=== PATIENT | male | born 1970 ===

== ENCOUNTER 2018-07-07 22:39 | Inpatient (IN) | payer MEDICARE ==
[2018-07-07] MEDS ORDERED: Piperacillin/Tazobact 3.375 GM in Sodium Chloride 0.9% 100 ML IV STA (23:51)
[2018-07-07] MEDS ORDERED: Sodium Chloride 0.9% 1,000 ML IV STA (23:55)
[2018-07-08] MEDS ORDERED: Morphine 4 MG/ML VIAL IVP ONE (00:12)
[2018-07-08] MEDS ORDERED: Morphine 4 MG/ML VIAL ONE (00:14)
[2018-07-08] MEDS ORDERED: Piperacillin/Tazobact 3.375 gm Inj IVPB ONE (00:15)
--- NOTE | 2018-07-08 00:27 | ED PDOC ---
Lower Extremity Pain/Injury Time Seen by Provider: 07/07/18 23:23 Chief Complaint (Nursing): Lower Extremity Problem/Injury Chief Complaint (Provider): Lower Extremity Problem/Injury History Per: Patient History/Exam Limitations: no limitations Onset/Duration Of Symptoms: Days (2) Additional Complaint(s): 48 y/o male with history of diabetes, HTN, and stroke, presents to the ED complaining of left foot pain onset x2 days ago. Patient reports that x2 days ago he cut the bottom of his 4th toe on his left foot. He went to [facility] and was given Rx for Keflex. Patient reports that his foot is red and swollen. He became aware of fever upon arrival to ED. His last tetanus was within 5 years. Past Medical History Reviewed: Historical Data, Nursing Documentation, Vital Signs Vital Signs: Last Vital Signs Temp 101.4 F H 07/07/18 22:45 Pulse 135 H 07/07/18 22:45 Resp 16 07/07/18 22:45 BP 107/76 07/07/18 22:45 Pulse Ox 100 07/07/18 22:45 - Medical History PMH: CVA (stroke), Diabetes, HTN, Hypercholesterolemia - Family History Family History: States: Unknown Family Hx - Immunization History Hx Tetanus Toxoid Vaccination: No Hx Influenza Vaccination: No Hx Pneumococcal Vaccination: No - Home Medications Home Medications: Ambulatory Orders Medication Instructions Recorded RX: Insulin Aspart, Recombinant 15 unit SQ TID 08/12/16 [Novolog] RX: Lisinopril [Zestril] 40 mg PO DAILY 08/12/16 RX: amLODIPine [Norvasc] 10 mg PO DAILY 08/12/16 RX: metFORMIN [glucOPHAGE] 500 mg PO DAILY 08/12/16 Cephalexin [cephalexin] 500 mg PO TID 30 Days cap 07/05/18 Insulin Glargine,Hum.rec.anlog 50 unit SQ HS 07/05/18 [Lantus] Sulfamethoxazole/Trimethoprim 1 tab PO BID 20 Days tablet 07/05/18 [Bactrim Ds Tablet] Aspirin [Adult Low Dose Aspirin EC] 81 mg PO DAILY 07/08/18 Atorvastatin [Lipitor] 20 mg PO DAILY 07/08/18 Multivitamin,Therapeutic [Oncovite] 1 tab PO DAILY 07/08/18 [id number] Ethyl Esters 1 GM 1 tab PO DAILY 07/08/18 [Lovaza] RX: Glimepiride [amaRYL] 4 mg PO DAILY 07/08/18 RX: Pioglitazone [Actos] 15 mg PO DAILY 07/08/18 - Allergies Allergies/Adverse Reactions: Allergies Allergy/AdvReac Type Severity Reaction Status Date / Time No Known Allergies Allergy Verified 07/05/18 09:56 Review of Systems ROS Statement: Except As Marked, All Systems Reviewed And Found Negative Constitutional: Positive for: Fever, Chills Musculoskeletal: Positive for: Foot Pain Physical Exam - Reviewed Nursing Documentation Reviewed: Yes Vital Signs Reviewed: Yes - Physical Exam Appears: Positive for: Well, Non-toxic, No Acute Distress Head Exam: Positive for: ATRAUMATIC, NORMAL INSPECTION, NORMOCEPHALIC Skin: Positive for: Normal Color, Warm, DRY Eye Exam: Positive for: EOMI, Normal appearance, PERRL ENT: Positive for: Normal ENT Inspection Neck: Positive for: Normal, Painless ROM Cardiovascular/Chest: Positive for: Regular Rate, Rhythm. Negative for: Murmur Respiratory: Positive for: Normal Breath Sounds. Negative for: Respiratory Distress Pulses-Dorsalis Pedis (L): 2+ Pulses-Dorsalis Pedis (R): 2+ Pulses-Post. Tibialis (L): 2+ Pulses-Post. Tibialis (R): 2+ Extremity: Positive for: Capillary Refill (<2 second), Swelling, Other (Left 4th toe is indurated, erythematous, warm to touch with 1.5 cm laceration at plantar aspect; yellowish drainage; skin in web space of 4th digit is macerated) Neurologic/Psych: Positive for: Alert, Oriented. Negative for: Motor/Sensory Deficits - Laboratory Results Result Diagrams: 07/08/18 00:02 07/08/18 00:02 - ECG O2 Sat by Pulse Oximetry: 100 (RA) Pulse Ox Interpretation: Normal Medical Decision Making Medical Decision Making: Time: 23:51 Initial Impression: 48 y/o with left 4th toe wound infection in setting of diabetes and cellulitis Initial Plan: * Labs * RAD Foot * Podiatry consult 23:54 Spoke with Deneen Das, podiatry resident, regarding patient case. She will come examine patient's foot. 00:49 Patient labs are significant for leukocytosis, elevated BUN and creatinine which is indicative of worsening kidney function. Patient is admitted for 4th toe wound infection and cellulitis and failed out patient treatment. Case referred to Dr. Funk. Scribe Attestation: Documented by Hadley Pierce acting as a scribe for Marcos Sanchez MD. Provider Scribe Attestation: All medical record entries made by the Scribe were at my direction and personally dictated by me. I have reviewed the chart and agree that the record accurately reflects my personal performance of the history, physical exam, medical decision making, and the department course for this patient. I have also personally directed, reviewed, and agree with the discharge instructions and disposition. Disposition - Clinical Impression Clinical Impression: Cellulitis of left foot - Patient ED Disposition Is Patient to be Admitted: Yes Discussed With : Ashish Funk - Disposition Disposition Time: 00:49 Condition: FAIR - Pt Status Changed To: Hospital Disposition Of: Inpatient - Admit Certification Admit to Inpatient:: After my assessment, the patient will require hospitalization for at least two midnights. This is because of the severity of symptoms shown, intensity of services needed, and/or the medical risk in this patient being treated as an outpatient.
[2018-07-08 00:31] LABS: BASO # 0.1 K/uL (0.0-0.2); BASO % 0.5 % (0.0-2.0); EOS # 0.8 K/uL (0.0-0.7); EOS % 5.9 % (0.0-4.0); HEMOGLOBIN 12.5 g/dL (12.0-18.0); LYMPH % 7.4 % (20.0-40.0); MEAN CELL VOLUME 94.9 fl (80.0-94.0); MEAN CORPUSCULAR HEMOGLOBIN 31.9 pg (27.0-31.0); MEAN CORPUSCULAR HGB CONC 33.6 g/dL (33.0-37.0); MEAN PLATELET VOLUME 8.6 fl (7.2-11.7); MONO # 1.5 K/uL (0.0-0.8); NEUT # 10.1 K/uL (1.8-7.0); NEUT % 75.2 % (50.0-75.0); NRBC % 0.1 % (0.0-0.0); PLATELET COUNT 275 K/uL (130-400); RBC 3.92 Mil/uL (4.40-5.90); RED CELL DISTRIBUTION WIDTH 12.8 % (11.5-14.5); WHITE BLOOD COUNT 13.4 K/uL (4.8-10.8)
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
[2018-07-08 00:43] LABS: ALB/GLOB RATIO 1.1 (1.0-2.1); ALBUMIN 3.9 g/dL (3.5-5.0); CALCIUM 9.3 mg/dL (8.4-10.2)
[2018-07-08] MEDS ORDERED: Sodium Chloride 0.9% 1,000 ML IV STA (01:26)
[2018-07-08] MEDS ORDERED: Glucagon Recombinant 1 mg Inj IM PRN (01:39)
[2018-07-08] MEDS ORDERED: Dextrose 50% SYRINGE Inj (50 ml) IV PRN (01:39)
[2018-07-08] MEDS ORDERED: Insulin Regular 100 units/ml IV ONE (02:10)
[2018-07-08 02:22] LABS: BANDS 1 % (0-2); BASOPHIL 1 % (0-2); LYMPHOCYTE 8 % (20-50); MONOCYTE 7 % (0-10); NEUTROPHIL 83 % (42-75); PLATELET ESTIMATE NORMAL (NORMAL); TOTAL CELLS COUNTED 100
[2018-07-08 02:24] LABS: ANISOCYTOSIS SLIGHT
[2018-07-08 02:25] LABS: SPHEROCYTES SLIGHT
[2018-07-08] MEDS ORDERED: Morphine 4 MG/ML VIAL IVP STA (03:37)
[2018-07-08] MEDS: GlipiZIDE 10 mg SR Tab PO SCH (08:52)
[2018-07-08] MEDS: Omega-3-Acid Ethyl Esters 1 GM Cap PO SCH (08:53)
[2018-07-08] MEDS: Multivitamin With Minerals Tab PO SCH (08:54)
[2018-07-08] MEDS: Mupirocin 2% Oint 1GM UD TOP SCH ×2 (08:55→16:24)
[2018-07-08] MEDS: Morphine 4 MG/ML VIAL IVP PRN ×2 (09:06→17:53)
[2018-07-08] MEDS: Insulin Regular 100 units/ml SC SCH ×4 (09:07→21:33)
[2018-07-08] MEDS: Clindamycin in D5W 300 MG/50 ML BAG IV SCH ×3 (09:47→22:43)
[2018-07-08 10:34] LABS: BASO # 0.1 K/uL (0.0-0.2); BASO % 0.4 % (0.0-2.0); EOS # 0.6 K/uL (0.0-0.7); EOS % 4.3 % (0.0-4.0); HEMOGLOBIN 12.5 g/dL (12.0-18.0); LYMPH # 1.3 K/uL (1.0-4.3); LYMPH % 8.7 % (20.0-40.0); MEAN CELL VOLUME 94.2 fl (80.0-94.0); MEAN CORPUSCULAR HEMOGLOBIN 31.6 pg (27.0-31.0); MEAN CORPUSCULAR HGB CONC 33.6 g/dL (33.0-37.0); MEAN PLATELET VOLUME 8.3 fl (7.2-11.7); MONO # 1.7 K/uL (0.0-0.8); MONO % 11.8 % (0.0-10.0); NEUT % 74.8 % (50.0-75.0); RBC 3.95 Mil/uL (4.40-5.90); RED CELL DISTRIBUTION WIDTH 12.8 % (11.5-14.5); WHITE BLOOD COUNT 14.7 K/uL (4.8-10.8)
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
[2018-07-08 11:33] LABS: CALCIUM 9.2 mg/dL (8.4-10.2)
[2018-07-08] MEDS: Oxycodone/Acetaminophen 5/325 mg Tab PO PRN ×2 (12:12→20:26)
--- NOTE | 2018-07-08 12:52 | RAD ---
Date of service: 07/08/2018 PROCEDURE: CHEST RADIOGRAPH, 1 VIEW HISTORY: admit COMPARISON: None available. FINDINGS: LUNGS: The lungs are well inflated and clear. PLEURA: No pneumothorax or pleural effusion. CARDIOVASCULAR: The heart is normal in size. Status post median sternotomy. No aortic atherosclerotic calcifications present. OSSEOUS STRUCTURES: Within normal limits for the patient's age. VISUALIZED UPPER ABDOMEN: Normal. OTHER FINDINGS: A right ventriculoperitoneal shunt overlies the lower neck, chest and abdomen. IMPRESSION: No acute findings.
--- NOTE | 2018-07-08 12:54 | RAD ---
Date of service: 07/08/2018 PROCEDURE: Left Foot Radiographs. HISTORY: pain COMPARISON: None. FINDINGS: BONES: Bone alignment and mineralization are normal. There is no acute displaced fracture or bone destruction. There is periosteal reaction in the lateral cortex of the 5th metatarsal.. There is a small plantar calcaneal spur and prominent dorsal calcaneal enthesophyte. JOINTS: There is mild degenerative osteoarthrosis in the 1st MTP joint and mild hallux deformity. SOFT TISSUES: Mild soft tissue swelling in the forefoot. OTHER FINDINGS: None. IMPRESSION: No acute fracture or dislocation. Periosteal reaction in the lateral cortex of the 5th metatarsal could represent post-traumatic or postinfectious changes. Follow-up is advised. Mild soft tissue swelling in the dorsal forefoot. The final report is tagged to the PA review folder.
--- NOTE | 2018-07-08 16:30 | US ---
Date of service: 07/08/2018 PROCEDURE: Duplex ultrasound of the bilateral lower extremity arteries. HISTORY: R/o PVD COMPARISON: None available. TECHNIQUE: Grayscale and duplex Doppler evaluation of the bilateral common femoral, superficial femoral, popliteal, posterior tibial and dorsalis pedis arteries was performed.. FINDINGS: RIGHT LOWER EXTREMITY: RIGHT COMMON FEMORAL ARTERY: Widely patent. Maximal flow velocity of 99.3 cm/s. RIGHT SUPERFICIAL FEMORAL ARTERY: Widely patent. Maximal flow velocity of 101.8 cm/s. RIGHT POPLITEAL ARTERY:Widely patent. Maximal flow velocity of 42.6 cm/s. RIGHT POSTERIOR TIBIAL ARTERY: Widely patent. Maximal flow velocity of 34.1 cm/s. RIGHT DORSALIS PEDIS ARTERY: Widely patent. Maximal flow velocity of 40.0 cm/s. LEFT LOWER EXTREMITY: LEFT COMMON FEMORAL ARTERY: Widely patent. Maximal flow velocity of 97.1 cm/s. LEFT SUPERFICIAL FEMORAL ARTERY: Widely patent. Maximal flow velocity of 90.4 cm/s. LEFT POPLITEAL ARTERY:Widely patent. Maximal flow velocity of 47.9 cm/s. LEFT POSTERIOR TIBIAL ARTERY: Widely patent. Maximal flow velocity of 46.0 cm/s. LEFT DORSALIS PEDIS ARTERY: Widely patent. Maximal flow velocity of 36.6 cm/s. OTHER FINDINGS: None. IMPRESSION: Normal Duplex Doppler of the bilateral lower extremity arteries.
[2018-07-08 19:38] LABS: URINE BILIRUBIN NEGATIVE (NEGATIVE); URINE BLOOD NEGATIVE (NEGATIVE); URINE CLARITY SLIGHTY-CLOUDY (Clear); URINE COLOR YELLOW (YELLOW); URINE GLUCOSE (UA) NEG (NEGATIVE); URINE LEUKOCYTE ESTERASE NEG Leu/uL (Negative); URINE PROTEIN 100 mg/dL (NEGATIVE)
[2018-07-08] MEDS: Linezolid 600 mg in D5W 300 ml 600 MG/300 ML BAG IVPB SCH (20:28)
[2018-07-08] MEDS: Insulin Detemir 100 Units/ml Inj SC SCH (21:32)
--- NOTE | 2018-07-09 01:09 | CP.PCM.HP ---
History of Present Illness - History of Present Illness History of Present Illness: CC: Left Foot Ulcer and Fever History fo Present Illness: A 48yoM patient with Hx of CVA, [employer] Shunt after the stroke, DM II, Dyslipidemia, HTN & CAD S/P CABG seen and evaluated at bedside for L foot Infected Ulcer. States that he was reversing in his car while wearing slippers and his foot slipped on the gas pedal causing a small laceration to the bottom of his foot beneath his 4th toe. Patient states that he went to [facility] where he was discharged on PO antibiotics. Also C./o worsening wound associated with foul- smelling discharge. Also associated with high-grade fever 102. He states that the past two days his daughter has been putting neosporin on the area which have caused it to become more wet. He states that he came to the ED today for his toe again since it was not getting better. He denies nausea/vomiting/shortness of breath/chest pain. He is admitted for worsening infected Diabetic foot Ulcer with failed outpatient treatment. Present on Admission - Present on Admission Any Indicators Present on Admission: Yes History of Uncontrolled Diabetes: Yes Review of Systems - Review of Systems All systems: reviewed and no additional remarkable complaints except Review of Systems: as per HPI Past Patient History - Past Medical History & Family History Past Medical History?: Yes Past Family History: Reviewed and not pertinent - Past Social History Smoking Status: Never Smoked Alcohol: None Drugs: Denies - CARDIAC Hx Hypercholesterolemia: Yes Hx Hypertension: Yes - PULMONARY Hx Respiratory Disorders: Yes Other/Comment: past lung surgery - NEUROLOGICAL Hx Neurological Disorder: Yes HX Cerebrovascular Accident: Yes Other/Comment: craniotomy in 2009 - HEENT Hx HEENT Problems: No - RENAL Hx Chronic Kidney Disease: No - ENDOCRINE/METABOLIC Hx Diabetes Mellitus Type 2: Yes - HEMATOLOGICAL/ONCOLOGICAL Hx Blood Disorders: No - INTEGUMENTARY Hx Dermatological Problems: No - MUSCULOSKELETAL/RHEUMATOLOGICAL Hx Falls: No - GASTROINTESTINAL Hx Gastrointestinal Disorders: No - GENITOURINARY/GYNECOLOGICAL Hx Genitourinary Disorders: No - PSYCHIATRIC Hx Substance Use: No - SURGICAL HISTORY Hx Surgeries: Yes Other/Comment: cardiac surgery. cerebral shunt. lung surgery - ANESTHESIA Hx Anesthesia: Yes Hx Anesthesia Reactions: No Meds Allergies/Adverse Reactions: Allergies Allergy/AdvReac Type Severity Reaction Status Date / Time No Known Allergies Allergy Verified 07/05/18 09:56 Physical Exam - Constitutional Appears: No Acute Distress, Chronically Ill - Head Exam Head Exam: ATRAUMATIC, NORMAL INSPECTION, NORMOCEPHALIC - Eye Exam Eye Exam: EOMI, Normal appearance, PERRL Pupil Exam: NORMAL ACCOMODATION, PERRL - ENT Exam ENT Exam: Mucous Membranes Moist, Normal Exam - Neck Exam Neck exam: Positive for: Normal Inspection - Respiratory Exam Respiratory Exam: Clear to Auscultation Bilateral, NORMAL BREATHING PATTERN - Cardiovascular Exam Cardiovascular Exam: REGULAR RHYTHM, +S1, +S2 - GI/Abdominal Exam GI & Abdominal Exam: Normal Bowel Sounds, Soft. absent: Tenderness - Extremities Exam Additional comments: LLE: Derm: Laceration appreciated to plantar sulcus of 4th digit, interdigital maceration appreciated to 3rd and 4th interspaces, ecchymosis appreciated to 4th digit, +purulence, Malodorous, no probe to bone with clinical signs of infection at this time. Gross sensaton intact, protective sensation diminished - Back Exam Back exam: NORMAL INSPECTION - Neurological Exam Neurological exam: Alert, CN II-XII Intact, Normal Gait, Oriented x3, Reflexes Normal - Psychiatric Exam Psychiatric exam: Normal Affect, Normal Mood - Skin Skin Exam: Dry, Intact, Warm Results - Vital Signs Recent Vital Signs: Last Vital Signs Temp 98.3 F 07/09/18 00:14 Pulse 101 H 07/09/18 00:14 Resp 18 07/09/18 00:14 BP 127/81 07/09/18 00:14 Pulse Ox 93 L 07/09/18 00:14 - Labs Result Diagrams: 07/12/18 09:07 07/12/18 09:07 Labs: Laboratory Results - last 24 hr 07/08/18 07/08/18 07/08/18 00:02 02:00 02:53 WBC RBC Hgb Hct MCV MCH MCHC RDW Plt Count MPV Neut % (Auto) Lymph % (Auto) [place] % (Auto) Eos % (Auto) Baso % (Auto) Neut # (Auto) Lymph # (Auto) [place] # (Auto) Eos # (Auto) Baso # (Auto) Neutrophils % (Manual) 83 H Band Neutrophils % 1 Lymphocytes % (Manual) 8 L Monocytes % (Manual) 7 Basophils % (Manual) 1 Platelet Estimate Normal Anisocytosis (manual) Slight Spherocytes Slight ESR Sodium Potassium Chloride Carbon Dioxide Anion Gap BUN Creatinine Est GFR ( Amer) Est GFR (Non-Af Amer) POC Glucose (mg/dL) 317 H 279 H Random Glucose Hemoglobin A1c Calcium Vitamin B12 TSH 3rd Generation Urine Color Urine Clarity Urine pH Ur Specific [place] Urine Protein Urine Glucose (UA) Urine Ketones Urine Blood Urine Nitrate Urine Bilirubin Urine Urobilinogen Ur Leukocyte Esterase Urine RBC (Auto) Urine Microscopic WBC 07/08/18 07/08/18 07/08/18 05:16 10:00 10:00 WBC 14.7 H RBC 3.95 L Hgb 12.5 Hct 37.2 MCV 94.2 H MCH 31.6 H MCHC 33.6 RDW 12.8 Plt Count 297 MPV 8.3 Neut % (Auto) 74.8 Lymph % (Auto) 8.7 L [place] % (Auto) 11.8 H Eos % (Auto) 4.3 H Baso % (Auto) 0.4 Neut # (Auto) 11.0 H Lymph # (Auto) 1.3 [place] # (Auto) 1.7 H Eos # (Auto) 0.6 Baso # (Auto) 0.1 Neutrophils % (Manual) Band Neutrophils % Lymphocytes % (Manual) Monocytes % (Manual) Basophils % (Manual) Platelet Estimate Anisocytosis (manual) Spherocytes ESR Sodium 135 Potassium 5.1 H Chloride 95 L Carbon Dioxide 25 Anion Gap 20 BUN 34 H Creatinine 3.0 H Est GFR ( Amer) 27 Est GFR (Non-Af Amer) 22 POC Glucose (mg/dL) 260 H Random Glucose 252 H Hemoglobin A1c Calcium 9.2 Vitamin B12 599 TSH 3rd Generation 1.37 Urine Color Urine Clarity Urine pH Ur Specific [place] Urine Protein Urine Glucose (UA) Urine Ketones Urine Blood Urine Nitrate Urine Bilirubin Urine Urobilinogen Ur Leukocyte Esterase Urine RBC (Auto) Urine Microscopic WBC 07/08/18 07/08/18 07/08/18 10:00 11:04 15:41 WBC RBC Hgb Hct MCV MCH MCHC RDW Plt Count MPV Neut % (Auto) Lymph % (Auto) [place] % (Auto) Eos % (Auto) Baso % (Auto) Neut # (Auto) Lymph # (Auto) [place] # (Auto) Eos # (Auto) Baso # (Auto) Neutrophils % (Manual) Band Neutrophils % Lymphocytes % (Manual) Monocytes % (Manual) Basophils % (Manual) Platelet Estimate Anisocytosis (manual) Spherocytes ESR Sodium Potassium Chloride Carbon Dioxide Anion Gap BUN Creatinine Est GFR ( Amer) Est GFR (Non-Af Amer) POC Glucose (mg/dL) 261 H 208 H Random Glucose Hemoglobin A1c 10.0 H Calcium Vitamin B12 TSH 3rd Generation Urine Color Urine Clarity Urine pH Ur Specific [place] Urine Protein Urine Glucose (UA) Urine Ketones Urine Blood Urine Nitrate Urine Bilirubin Urine Urobilinogen Ur Leukocyte Esterase Urine RBC (Auto) Urine Microscopic WBC 07/08/18 07/08/18 07/08/18 16:32 19:16 21:03 WBC RBC Hgb Hct MCV MCH MCHC RDW Plt Count MPV Neut % (Auto) Lymph % (Auto) [place] % (Auto) Eos % (Auto) Baso % (Auto) Neut # (Auto) Lymph # (Auto) [place] # (Auto) Eos # (Auto) Baso # (Auto) Neutrophils % (Manual) Band Neutrophils % Lymphocytes % (Manual) Monocytes % (Manual) Basophils % (Manual) Platelet Estimate Anisocytosis (manual) Spherocytes ESR 91 H Sodium Potassium Chloride Carbon Dioxide Anion Gap BUN Creatinine Est GFR ( Amer) Est GFR (Non-Af Amer) POC Glucose (mg/dL) 225 H Random Glucose Hemoglobin A1c Calcium Vitamin B12 TSH 3rd Generation Urine Color Yellow Urine Clarity Slighty-cloudy Urine pH 5.0 Ur Specific [place] 1.023 Urine Protein 100 Urine Glucose (UA) Neg Urine Ketones Negative Urine Blood Negative Urine Nitrate Negative Urine Bilirubin Negative Urine Urobilinogen 1.0 Ur Leukocyte Esterase Neg Urine RBC (Auto) 2 Urine Microscopic WBC 2 - Imaging and Cardiology Foot Status: Report reviewed by me Additional comment: Date of service: 07/08/2018 PROCEDURE: Left Foot Radiographs. HISTORY: pain COMPARISON: None. FINDINGS: BONES: Bone alignment and mineralization are normal. There is no acute displaced fracture or bone destruction. There is periosteal reaction in the lateral cor janny of the 5th metatarsal.. There is a small plantar calcaneal spur and prominent dorsal calcaneal enthesophyte. JOINTS: There is mild degenerative osteoarthrosis in the 1st MTP joint and mild hallux deformity. SOFT TISSUES: Mild soft tissue swelling in the forefoot. OTHER FINDINGS: None. IMPRESSION: No acute fracture or dislocation. Periosteal reaction in the lateral cortex of the 5th metatarsal could represent post-traumatic or postinfectious changes. Follow-up is advised. Mild soft tissue swelling in the dorsal forefoot. Chest x-ray Status: Report reviewed by me Additional comment: No Acute finding. Assessment & Plan (1) Sepsis Status: Acute Priority: High (2) Foot ulcer, left Assessment and Plan: Infected R/O Osteomyelitis Status: Acute Priority: High (3) Diabetes mellitus with hyperglycemia Status: Acute Priority: Medium (4) CAD (coronary artery disease) Status: Acute Priority: Medium (5) H/O coronary artery bypass surgery Status: Acute Priority: Low - Assessment and Plan (Free Text) Plan: IV fluid IV Vancomycin 1g every 24 hours Zosyn adjusted to renal function daily wound care MRI to rule out osteomyelitis ID consult Accu-Chek with coverage Hemoglobin A1C Arterial Doppler B/L LE Avoid Nephrotoxic Medications
[2018-07-09] MEDS: Clindamycin in D5W 300 MG/50 ML BAG IV SCH ×2 (06:27→14:00)
[2018-07-09 06:36] LABS: BASO # 0.1 K/uL (0.0-0.2); BASO % 0.6 % (0.0-2.0); EOS # 0.5 K/uL (0.0-0.7); EOS % 3.6 % (0.0-4.0); HEMOGLOBIN 11.3 g/dL (12.0-18.0); LYMPH # 1.2 K/uL (1.0-4.3); LYMPH % 9.3 % (20.0-40.0); MEAN CELL VOLUME 94.2 fl (80.0-94.0); MEAN CORPUSCULAR HEMOGLOBIN 31.9 pg (27.0-31.0); MEAN CORPUSCULAR HGB CONC 33.8 g/dL (33.0-37.0); MEAN PLATELET VOLUME 8.4 fl (7.2-11.7); MONO # 1.9 K/uL (0.0-0.8); MONO % 14.5 % (0.0-10.0); NEUT # 9.5 K/uL (1.8-7.0); RBC 3.56 Mil/uL (4.40-5.90); RED CELL DISTRIBUTION WIDTH 12.6 % (11.5-14.5); WHITE BLOOD COUNT 13.2 K/uL (4.8-10.8)
[2018-07-09] MEDS: Omega-3-Acid Ethyl Esters 1 GM Cap PO SCH (08:19)
[2018-07-09] MEDS: Insulin Regular 100 units/ml SC SCH (08:23)
[2018-07-09] MEDS: Mupirocin 2% Oint 1GM UD TOP SCH ×2 (08:24→17:18)
[2018-07-09] MEDS: Multivitamin With Minerals Tab PO SCH (08:25)
[2018-07-09] MEDS: GlipiZIDE 10 mg SR Tab PO SCH (08:26)
[2018-07-09] MEDS: Linezolid 600 mg in D5W 300 ml 600 MG/300 ML BAG IVPB SCH (08:28)
[2018-07-09] MEDS: Oxycodone/Acetaminophen 5/325 mg Tab PO PRN (08:34)
--- NOTE | 2018-07-09 08:45 | CP.PCM.PN ---
Subjective - Date & Time of Evaluation Date of Evaluation: 07/09/18 Time of Evaluation: 08:44 - Subjective Subjective: Podiatry Consult Note: Dr Deleon 48M patient, with PMHx of DM, HTN, seen and evaluated at bedside for L foot lesion. Patient is AAOx3 and in NAD. Denies acute overnight events. Admits to moderate pain to the left fourth and fifth toe. Patient states the pain medications are not alleviating the pain. Patient admits to burning sensation while urinating. He denies nausea/vomiting/fever/shortness of breath/chest pain/chills. Objective - Vital Signs/Intake and Output Vital Signs (last 24 hours): Temp Pulse Resp BP Pulse Ox 101.9 F H 109 H 20 132/63 94 L 07/09/18 08:22 07/09/18 08:19 07/09/18 08:19 07/09/18 08:19 07/09/18 08:19 - Medications Medications: Current Medications Acetaminophen (Tylenol 325mg Tab) 650 mg PO Q4 PRN PRN Reason: Fever >101.0 F Last Admin: 07/09/18 08:22 Dose: 650 mg Amlodipine Besylate (Norvasc) 10 mg PO DAILY [facility] Last Admin: 07/09/18 08:25 Dose: 10 mg Aspirin (Ecotrin) 81 mg PO DAILY [facility] Last Admin: 07/09/18 08:20 Dose: 81 mg Atorvastatin Calcium (Lipitor) 20 mg PO DAILY [facility] Last Admin: 07/09/18 08:26 Dose: 20 mg Dextrose (Dextrose 50% Inj) 0 ml IV STAT PRN; Protocol PRN Reason: Hypoglycemia Protocol Dextrose (Glutose 15) 0 gm PO ONCE PRN; Protocol PRN Reason: Hypoglycemia Protocol Glipizide (Glucotrol Xl) 10 mg PO DAILY [facility] Last Admin: 07/09/18 08:26 Dose: 10 mg Glucagon (Glucagen Diagnostic Kit) 0 mg IM STAT PRN; Protocol PRN Reason: Hypoglycemia Protocol Heparin Sodium (Porcine) (Heparin) 5,000 units SC Q8 [facility]; Protocol Last Admin: 07/09/18 08:19 Dose: 5,000 units Piperacillin Sod/Tazobactam (Sod 2.25 gm/ Sodium Chloride) 100 mls @ 100 mls/hr IV Q6H [facility]; Protocol Last Admin: 07/09/18 05:30 Dose: 100 mls/hr Clindamycin Phosphate (Clindamycin 300 Mg/50 Ml-D5w) 300 mg in 50 mls @ 100 mls/hr IV Q8H [facility]; Protocol Last Admin: 07/09/18 06:27 Dose: 100 mls/hr Linezolid (Zyvox 600mg/300ml D5w) 600 mg in 300 mls @ 300 mls/hr IVPB Q12 [facility]; Protocol Last Admin: 07/09/18 08:28 Dose: 300 mls/hr Insulin Detemir (Levemir) 50 units SC HS [facility] Last Admin: 07/08/18 21:32 Dose: 50 u Insulin Human Regular (Humulin R) 0 units SC ACHS [facility]; Protocol Last Admin: 07/09/18 08:23 Dose: 2 units Lisinopril (Zestril) 40 mg PO DAILY [facility] Last Admin: 07/09/18 08:25 Dose: 40 mg Morphine Sulfate (Morphine) 2 mg IVP Q4 PRN PRN Reason: Pain, severe (8-10) Last Admin: 07/08/18 17:53 Dose: 2 mg Multivitamins/Minerals (Therapeutic-M Tab) 1 tab PO DAILY [facility] Last Admin: 07/09/18 08:25 Dose: 1 tab Mupirocin (Bactroban Ointment) 1 applic TOP BID [facility] Last Admin: 07/09/18 08:24 Dose: 1 applic [id number] Ethyl Esters (Lovaza) 1 gm PO DAILY [facility] Last Admin: 07/09/18 08:19 Dose: 1 gm Oxycodone/Acetaminophen (Percocet 5/325 Mg Tab) 1 tab PO Q6 PRN PRN Reason: Pain, moderate (4-7) Stop: 07/11/18 06:53 Last Admin: 07/09/18 08:34 Dose: 1 tab Pioglitazone HCl (Actos) 15 mg PO DAILY [facility] Last Admin: 07/09/18 08:20 Dose: 15 mg Zolpidem Tartrate (Ambien) 5 mg PO HS PRN PRN Reason: Sleep Last Admin: 07/08/18 21:30 Dose: 5 mg - Labs Labs: 07/09/18 06:10 07/08/18 10:00 - Constitutional Appears: Well, Non-toxic, No Acute Distress - Head Exam Head Exam: ATRAUMATIC - Eye Exam Eye Exam: Normal appearance Pupil Exam: NORMAL ACCOMODATION - Extremities Exam Additional comments: LLE focused exam: Vascular: DP/PT 1/4, CFT < 3 seconds, TG warm to warm, no increased warmth appreciated to L 4th toe, mild +1 edema to 4th digit circumfrentially Ortho: Mild tenderness to palpation of plantar sulcus, HAV correction appreciated, left digit partial amputation Neuro: Gross sensaton intact, protective sensation diminished Derm: Laceration appreciated to plantar sulcus of 4th digit, interdigital maceration appreciated to 3rd and 4th interspaces, ecchymosis appreciated to 4th digit, no purulence, no probe to bone, no drainage, no malodor, no clinical signs of infection at this time. Assessment and Plan - Assessment and Plan (Free Text) Assessment: 48M patient, with PMHx of DM, HTN, seen and evaluated at bedside for L foot laceration Plan: Patient seen and evaluated Discussed patient in detail with Dr. Deleon Febrile, WBC 13.2 L foot x-rays ordered; no evidence of OM, no soft tissue emphysema appreciated C/w IV abx; Zosyn ID on board; appreciate recs Wound Cx from [facility] (taken 07/05); B hemolytic strep, Staph Aureus Local wound care; wound cleansed with saline and dressed with betadine, DSD Will continue to follow
[2018-07-09] MEDS: Morphine 4 MG/ML VIAL IVP PRN ×3 (09:33→21:27)
--- NOTE | 2018-07-09 11:12 | CP.PCM.PN ---
Subjective - Date & Time of Evaluation Date of Evaluation: 07/09/18 Time of Evaluation: 11:12 - Subjective Subjective: ID Note- Patient seen and examined today. pt. with high fevers today. he states he feels pain in his foot and tired. Objective - Vital Signs/Intake and Output Vital Signs (last 24 hours): Temp Pulse Resp BP Pulse Ox 101.9 F H 109 H 20 132/63 94 L 07/09/18 08:22 07/09/18 08:19 07/09/18 08:19 07/09/18 08:19 07/09/18 08:19 - Medications Medications: Current Medications Acetaminophen (Tylenol 325mg Tab) 650 mg PO Q4 PRN PRN Reason: Fever >101.0 F Last Admin: 07/09/18 08:22 Dose: 650 mg Amlodipine Besylate (Norvasc) 10 mg PO DAILY [facility] Last Admin: 07/09/18 08:25 Dose: 10 mg Aspirin (Ecotrin) 81 mg PO DAILY [facility] Last Admin: 07/09/18 08:20 Dose: 81 mg Atorvastatin Calcium (Lipitor) 20 mg PO DAILY [facility] Last Admin: 07/09/18 08:26 Dose: 20 mg Dextrose (Dextrose 50% Inj) 0 ml IV STAT PRN; Protocol PRN Reason: Hypoglycemia Protocol Dextrose (Glutose 15) 0 gm PO ONCE PRN; Protocol PRN Reason: Hypoglycemia Protocol Glipizide (Glucotrol Xl) 10 mg PO DAILY [facility] Last Admin: 07/09/18 08:26 Dose: 10 mg Glucagon (Glucagen Diagnostic Kit) 0 mg IM STAT PRN; Protocol PRN Reason: Hypoglycemia Protocol Heparin Sodium (Porcine) (Heparin) 5,000 units SC Q8 GIANNA; Protocol Last Admin: 07/09/18 08:19 Dose: 5,000 units Piperacillin Sod/Tazobactam (Sod 2.25 gm/ Sodium Chloride) 100 mls @ 100 mls/hr IV Q6H GIANNA; Protocol Last Admin: 07/09/18 05:30 Dose: 100 mls/hr Clindamycin Phosphate (Clindamycin 300 Mg/50 Ml-D5w) 300 mg in 50 mls @ 100 mls/hr IV Q8H GIANNA; Protocol Last Admin: 07/09/18 06:27 Dose: 100 mls/hr Linezolid (Zyvox 600mg/300ml D5w) 600 mg in 300 mls @ 300 mls/hr IVPB Q12 GIANNA; Protocol Last Admin: 07/09/18 08:28 Dose: 300 mls/hr Sodium Chloride (Sodium Chloride 0.9%) 1,000 mls @ 100 mls/hr IV .Q10H [facility] Stop: 07/10/18 10:08 Insulin Detemir (Levemir) 50 units SC HS [facility] Last Admin: 07/08/18 21:32 Dose: 50 u Insulin Human Lispro (Humalog) 10 units SC TIDAC GIANNA Insulin Human Lispro (Humalog) 0 units SC ACHS [facility]; Protocol Lisinopril (Zestril) 40 mg PO DAILY [facility] Last Admin: 07/09/18 08:25 Dose: 40 mg Morphine Sulfate (Morphine) 2 mg IVP Q4 PRN PRN Reason: Pain, severe (8-10) Last Admin: 07/09/18 09:33 Dose: 2 mg Multivitamins/Minerals (Therapeutic-M Tab) 1 tab PO DAILY [facility] Last Admin: 07/09/18 08:25 Dose: 1 tab Mupirocin (Bactroban Ointment) 1 applic TOP BID [facility] Last Admin: 07/09/18 08:24 Dose: 1 applic [id number] Ethyl Esters (Lovaza) 1 gm PO DAILY [facility] Last Admin: 07/09/18 08:19 Dose: 1 gm Oxycodone/Acetaminophen (Percocet 5/325 Mg Tab) 1 tab PO Q6 PRN PRN Reason: Pain, moderate (4-7) Stop: 07/11/18 06:53 Last Admin: 07/09/18 08:34 Dose: 1 tab Pioglitazone HCl (Actos) 15 mg PO DAILY [facility] Last Admin: 07/09/18 08:20 Dose: 15 mg Zolpidem Tartrate (Ambien) 5 mg PO HS PRN PRN Reason: Sleep Last Admin: 07/08/18 21:30 Dose: 5 mg - Labs Labs: - Additional Findings Additional findings: - Constitutional Appears: No Acute Distress - Head Exam Head Exam: ATRAUMATIC - Eye Exam Eye Exam: EOMI, PERRL - ENT Exam ENT Exam: Normal Oropharynx - Neck Exam Neck exam: Positive for: Full Rom - Respiratory Exam Respiratory Exam: Clear to Auscultation Bilateral, NORMAL BREATHING PATTERN - Cardiovascular Exam Cardiovascular Exam: RRR, +S1, +S2 - GI/Abdominal Exam GI & Abdominal Exam: Normal Bowel Sounds, Soft Additional comments: NT, ND - Back Exam Additional comments: left fourth toe plantar region with small lacerated area with sanguinous discharge, edema of the toe and surrounding region - Neurological Exam Neurological exam: Alert, Oriented x3 Laboratory Results - last 72 hr 07/07/18 07/08/18 07/08/18 23:56 00:02 00:02 WBC 13.4 H RBC 3.92 L Hgb 12.5 Hct 37.2 MCV 94.9 H MCH 31.9 H MCHC 33.6 RDW 12.8 Plt Count 275 MPV 8.6 Neut % (Auto) 75.2 H Lymph % (Auto) 7.4 L Noble % (Auto) 11.0 H Eos % (Auto) 5.9 H Baso % (Auto) 0.5 Neut # (Auto) 10.1 H Lymph # (Auto) 1.0 Noble # (Auto) 1.5 H Eos # (Auto) 0.8 H Baso # (Auto) 0.1 Neutrophils % (Manual) 83 H Band Neutrophils % 1 Lymphocytes % (Manual) 8 L Monocytes % (Manual) 7 Basophils % (Manual) 1 Platelet Estimate Normal Anisocytosis (manual) Slight Spherocytes Slight ESR Sodium 133 Potassium 5.0 Chloride 91 L Carbon Dioxide 28 Anion Gap 19 BUN 34 H Creatinine 3.0 H Est GFR ( Amer) 27 Est GFR (Non-Af Amer) 22 POC Glucose (mg/dL) 334 H Random Glucose 349 H Hemoglobin A1c Lactic Acid Calcium 9.3 Total Bilirubin 0.8 AST 92 H ALT 79 H Alkaline Phosphatase 191 H Total Protein 7.4 Albumin 3.9 Globulin 3.5 Albumin/Globulin Ratio 1.1 Vitamin B12 TSH 3rd Generation Urine Color Urine Clarity Urine pH Ur Specific Sagle Urine Protein Urine Glucose (UA) Urine Ketones Urine Blood Urine Nitrate Urine Bilirubin Urine Urobilinogen Ur Leukocyte Esterase Urine RBC (Auto) Urine Microscopic WBC 07/08/18 07/08/18 07/08/18 00:02 02:00 02:53 WBC RBC Hgb Hct MCV MCH MCHC RDW Plt Count MPV Neut % (Auto) Lymph % (Auto) Noble % (Auto) Eos % (Auto) Baso % (Auto) Neut # (Auto) Lymph # (Auto) Noble # (Auto) Eos # (Auto) Baso # (Auto) Neutrophils % (Manual) Band Neutrophils % Lymphocytes % (Manual) Monocytes % (Manual) Basophils % (Manual) Platelet Estimate Anisocytosis (manual) Spherocytes ESR Sodium Potassium Chloride Carbon Dioxide Anion Gap BUN Creatinine Est GFR ( Amer) Est GFR (Non-Af Amer) POC Glucose (mg/dL) 317 H 279 H Random Glucose Hemoglobin A1c Lactic Acid 1.8 Calcium Total Bilirubin AST ALT Alkaline Phosphatase Total Protein Albumin Globulin Albumin/Globulin Ratio Vitamin B12 TSH 3rd Generation Urine Color Urine Clarity Urine pH Ur Specific Sagle Urine Protein Urine Glucose (UA) Urine Ketones Urine Blood Urine Nitrate Urine Bilirubin Urine Urobilinogen Ur Leukocyte Esterase Urine RBC (Auto) Urine Microscopic WBC 07/08/18 07/08/18 07/08/18 05:16 10:00 10:00 WBC 14.7 H RBC 3.95 L Hgb 12.5 Hct 37.2 MCV 94.2 H MCH 31.6 H MCHC 33.6 RDW 12.8 Plt Count 297 MPV 8.3 Neut % (Auto) 74.8 Lymph % (Auto) 8.7 L Noble % (Auto) 11.8 H Eos % (Auto) 4.3 H Baso % (Auto) 0.4 Neut # (Auto) 11.0 H Lymph # (Auto) 1.3 Noble # (Auto) 1.7 H Eos # (Auto) 0.6 Baso # (Auto) 0.1 Neutrophils % (Manual) Band Neutrophils % Lymphocytes % (Manual) Monocytes % (Manual) Basophils % (Manual) Platelet Estimate Anisocytosis (manual) Spherocytes ESR Sodium 135 Potassium 5.1 H Chloride 95 L Carbon Dioxide 25 Anion Gap 20 BUN 34 H Creatinine 3.0 H Est GFR ( Amer) 27 Est GFR (Non-Af Amer) 22 POC Glucose (mg/dL) 260 H Random Glucose 252 H Hemoglobin A1c Lactic Acid Calcium 9.2 Total Bilirubin AST ALT Alkaline Phosphatase Total Protein Albumin Globulin Albumin/Globulin Ratio Vitamin B12 599 TSH 3rd Generation 1.37 Urine Color Urine Clarity Urine pH Ur Specific Sagle Urine Protein Urine Glucose (UA) Urine Ketones Urine Blood Urine Nitrate Urine Bilirubin Urine Urobilinogen Ur Leukocyte Esterase Urine RBC (Auto) Urine Microscopic WBC 07/08/18 07/08/18 07/08/18 10:00 11:04 15:41 WBC RBC Hgb Hct MCV MCH MCHC RDW Plt Count MPV Neut % (Auto) Lymph % (Auto) Noble % (Auto) Eos % (Auto) Baso % (Auto) Neut # (Auto) Lymph # (Auto) Noble # (Auto) Eos # (Auto) Baso # (Auto) Neutrophils % (Manual) Band Neutrophils % Lymphocytes % (Manual) Monocytes % (Manual) Basophils % (Manual) Platelet Estimate Anisocytosis (manual) Spherocytes ESR Sodium Potassium Chloride Carbon Dioxide Anion Gap BUN Creatinine Est GFR ( Amer) Est GFR (Non-Af Amer) POC Glucose (mg/dL) 261 H 208 H Random Glucose Hemoglobin A1c 10.0 H Lactic Acid Calcium Total Bilirubin AST ALT Alkaline Phosphatase Total Protein Albumin Globulin Albumin/Globulin Ratio Vitamin B12 TSH 3rd Generation Urine Color Urine Clarity Urine pH Ur Specific Sagle Urine Protein Urine Glucose (UA) Urine Ketones Urine Blood Urine Nitrate Urine Bilirubin Urine Urobilinogen Ur Leukocyte Esterase Urine RBC (Auto) Urine Microscopic WBC 07/08/18 07/08/18 07/08/18 16:32 19:16 21:03 WBC RBC Hgb Hct MCV MCH MCHC RDW Plt Count MPV Neut % (Auto) Lymph % (Auto) Noble % (Auto) Eos % (Auto) Baso % (Auto) Neut # (Auto) Lymph # (Auto) Noble # (Auto) Eos # (Auto) Baso # (Auto) Neutrophils % (Manual) Band Neutrophils % Lymphocytes % (Manual) Monocytes % (Manual) Basophils % (Manual) Platelet Estimate Anisocytosis (manual) Spherocytes ESR 91 H Sodium Potassium Chloride Carbon Dioxide Anion Gap BUN Creatinine Est GFR ( Amer) Est GFR (Non-Af Amer) POC Glucose (mg/dL) 225 H Random Glucose Hemoglobin A1c Lactic Acid Calcium Total Bilirubin AST ALT Alkaline Phosphatase Total Protein Albumin Globulin Albumin/Globulin Ratio Vitamin B12 TSH 3rd Generation Urine Color Yellow Urine Clarity Slighty-cloudy Urine pH 5.0 Ur Specific Sagle 1.023 Urine Protein 100 Urine Glucose (UA) Neg Urine Ketones Negative Urine Blood Negative Urine Nitrate Negative Urine Bilirubin Negative Urine Urobilinogen 1.0 Ur Leukocyte Esterase Neg Urine RBC (Auto) 2 Urine Microscopic WBC 2 07/09/18 07/09/18 07/09/18 05:29 06:10 11:01 WBC 13.2 H RBC 3.56 L Hgb 11.3 L Hct 33.5 L MCV 94.2 H MCH 31.9 H MCHC 33.8 RDW 12.6 Plt Count 303 MPV 8.4 Neut % (Auto) 72.0 Lymph % (Auto) 9.3 L Noble % (Auto) 14.5 H Eos % (Auto) 3.6 Baso % (Auto) 0.6 Neut # (Auto) 9.5 H Lymph # (Auto) 1.2 Noble # (Auto) 1.9 H Eos # (Auto) 0.5 Baso # (Auto) 0.1 Neutrophils % (Manual) Band Neutrophils % Lymphocytes % (Manual) Monocytes % (Manual) Basophils % (Manual) Platelet Estimate Anisocytosis (manual) Spherocytes ESR Sodium Potassium Chloride Carbon Dioxide Anion Gap BUN Creatinine Est GFR ( Amer) Est GFR (Non-Af Amer) POC Glucose (mg/dL) 195 H 235 H Random Glucose Hemoglobin A1c Lactic Acid Calcium Total Bilirubin AST ALT Alkaline Phosphatase Total Protein Albumin Globulin Albumin/Globulin Ratio Vitamin B12 TSH 3rd Generation Urine Color Urine Clarity Urine pH Ur Specific Sagle Urine Protein Urine Glucose (UA) Urine Ketones Urine Blood Urine Nitrate Urine Bilirubin Urine Urobilinogen Ur Leukocyte Esterase Urine RBC (Auto) Urine Microscopic WBC 07/09/18 11:20 WBC RBC Hgb Hct MCV MCH MCHC RDW Plt Count MPV Neut % (Auto) Lymph % (Auto) Noble % (Auto) Eos % (Auto) Baso % (Auto) Neut # (Auto) Lymph # (Auto) Noble # (Auto) Eos # (Auto) Baso # (Auto) Neutrophils % (Manual) Band Neutrophils % Lymphocytes % (Manual) Monocytes % (Manual) Basophils % (Manual) Platelet Estimate Anisocytosis (manual) Spherocytes ESR Sodium 133 Potassium 4.8 Chloride 93 L Carbon Dioxide 27 Anion Gap 18 BUN 34 H Creatinine 3.1 H Est GFR ( Amer) 26 Est GFR (Non-Af Amer) 22 POC Glucose (mg/dL) Random Glucose 259 H Hemoglobin A1c Lactic Acid Calcium 8.9 Total Bilirubin AST ALT Alkaline Phosphatase Total Protein Albumin Globulin Albumin/Globulin Ratio Vitamin B12 TSH 3rd Generation Urine Color Urine Clarity Urine pH Ur Specific Sagle Urine Protein Urine Glucose (UA) Urine Ketones Urine Blood Urine Nitrate Urine Bilirubin Urine Urobilinogen Ur Leukocyte Esterase Urine RBC (Auto) Urine Microscopic WBC Microbiology 07/07/18 00:02 Blood-Venous Blood Culture - Preliminary NO GROWTH AFTER 24 HOURS 07/08/18 00:17 Blood-Venous Blood Culture - Preliminary NO GROWTH AFTER 24 HOURS Microbiology 07/05/18 14:42 Foot - Left Gram Stain - Final 07/05/18 14:42 Foot - Left Wound Culture - Final Beta Hemolytic Strep Group B Staphylococcus Aureus Accession No. : [id number] Patient Name / ID : IVÁN PETERSON / [id number] Exam Date : 07/08/2018 14:03:42 ( Approved ) Study Comment : Sex / Age : M / [id number] Creator : Ravin Wong MD Dictator : Ravin Wong MD Tank Stave Assembler : Production Control Expert : Ravin Wong MD Approver2 : Report Date : 07/08/2018 16:24:48 My Comment : Date of service: 07/08/2018 PROCEDURE: Duplex ultrasound of the bilateral lower extremity arteries. HISTORY: R/o PVD COMPARISON: None available. TECHNIQUE: Grayscale and duplex Doppler evaluation of the bilateral common femoral, superficial femoral, popliteal, posterior tibial and dorsalis pedis arteries was performed.. FINDINGS: RIGHT LOWER EXTREMITY: RIGHT COMMON FEMORAL ARTERY: Widely patent. Maximal flow velocity of 99.3 cm/s. RIGHT SUPERFICIAL FEMORAL ARTERY: Widely patent. Maximal flow velocity of 101.8 cm/s. RIGHT POPLITEAL ARTERY:Widely patent. Maximal flow velocity of 42.6 cm/s. RIGHT POSTERIOR TIBIAL ARTERY: Widely patent. Maximal flow velocity of 34.1 cm/s. RIGHT DORSALIS PEDIS ARTERY: Widely patent. Maximal flow velocity of 40.0 cm/s. LEFT LOWER EXTREMITY: LEFT COMMON FEMORAL ARTERY: Widely patent. Maximal flow velocity of 97.1 cm/s. LEFT SUPERFICIAL FEMORAL ARTERY: Widely patent. Maximal flow velocity of 90.4 cm/s. LEFT POPLITEAL ARTERY:Widely patent. Maximal flow velocity of 47.9 cm/s. LEFT POSTERIOR TIBIAL ARTERY: Widely patent. Maximal flow velocity of 46.0 cm/s. LEFT DORSALIS PEDIS ARTERY: Widely patent. Maximal flow velocity of 36.6 cm/s. OTHER FINDINGS: None. IMPRESSION: Normal Duplex Doppler of the bilateral lower extremity arteries. Assessment and Plan (1) Cellulitis of left foot Status: Acute (2) Leukocytosis Status: Acute - Assessment and Plan (Free Text) Assessment: A/P- 48 year old male with DM Ii admitetd with left foot fourth digit region with open lesion and surrounding cellulitis. fever of 102 today minimal leukocytosis trending down HIGH ESR wound cx- Strep group B and MSSA foot xray report noted- has chronic renal insufficinecy creatinine 3.1 Plan advise to d/c linezolid. advise to start patietn on IV nafcillin ( renal dose ) for MSSA foot infection. advise to also start patietn on vanco q48 hours. check 2 more blood cx. may need MRI rule out OM , has high ESR.
[2018-07-09 11:59] LABS: CALCIUM 8.9 mg/dL (8.4-10.2)
[2018-07-09] MEDS: Sodium Chloride 0.9% 1,000 ML IV SCH ×2 (12:50→20:35)
[2018-07-09] MEDS: Insulin Lispro (humaLOG) 100 Units/ml Inj SC SCH ×5 (12:52→22:08)
[2018-07-09] MEDS: Insulin Detemir 100 Units/ml Inj SC SCH (22:13)
[2018-07-10] MEDS: Morphine 4 MG/ML VIAL IVP PRN ×3 (05:30→21:35)
[2018-07-10] MEDS: Sodium Chloride 0.9% 1,000 ML IV SCH ×2 (06:45)
[2018-07-10] MEDS: Insulin Lispro (humaLOG) 100 Units/ml Inj SC SCH ×7 (08:41→22:38)
[2018-07-10] MEDS: Mupirocin 2% Oint 1GM UD TOP SCH ×2 (08:45→17:08)
[2018-07-10] MEDS: GlipiZIDE 10 mg SR Tab PO SCH (08:46)
[2018-07-10] MEDS: Omega-3-Acid Ethyl Esters 1 GM Cap PO SCH (08:48)
[2018-07-10] MEDS: Multivitamin With Minerals Tab PO SCH (08:51)
--- NOTE | 2018-07-10 08:57 | MRI ---
Date of service: 07/09/2018 PROCEDURE: HISTORY: rule out abscess COMPARISON: TECHNIQUE: FINDINGS: Dorsal soft tissue swelling without evidence of ulceration. Focal area of bone marrow signal abnormality in the volar aspect of the head of the 4th metatarsal which could indicate osteomyelitis. Heterogeneous bone marrow signal in the head of the 1st metatarsal as well as curvilinear serpiginous signal abnormality likely indicating a avascular necrosis. No acute fracture. IMPRESSION: Possible osteomyelitis of the 4th metatarsal head.
--- NOTE | 2018-07-10 11:31 | CP.PCM.PN ---
Subjective - Date & Time of Evaluation Date of Evaluation: 07/10/18 Time of Evaluation: 11:31 - Subjective Subjective: ID Note- Patient seen and examined today. c/o pain in left foot toe region. low grade fever. Objective - Vital Signs/Intake and Output Vital Signs (last 24 hours): Temp Pulse Resp BP Pulse Ox 98.6 F 104 H 20 115/72 95 07/10/18 07:59 07/10/18 09:00 07/10/18 07:59 07/10/18 09:00 07/10/18 07:59 - Medications Medications: Current Medications Acetaminophen (Tylenol 325mg Tab) 650 mg PO Q4 PRN PRN Reason: Fever >101.0 F Last Admin: 07/09/18 08:22 Dose: 650 mg Amlodipine Besylate (Norvasc) 10 mg PO DAILY [facility] Last Admin: 07/10/18 09:00 Dose: 10 mg Aspirin (Ecotrin) 81 mg PO DAILY [facility] Last Admin: 07/10/18 08:46 Dose: 81 mg Atorvastatin Calcium (Lipitor) 20 mg PO DAILY [facility] Last Admin: 07/10/18 08:48 Dose: 20 mg Dextrose (Dextrose 50% Inj) 0 ml IV STAT PRN; Protocol PRN Reason: Hypoglycemia Protocol Dextrose (Glutose 15) 0 gm PO ONCE PRN; Protocol PRN Reason: Hypoglycemia Protocol Glipizide (Glucotrol Xl) 10 mg PO DAILY [facility] Last Admin: 07/10/18 08:46 Dose: 10 mg Glucagon (Glucagen Diagnostic Kit) 0 mg IM STAT PRN; Protocol PRN Reason: Hypoglycemia Protocol Heparin Sodium (Porcine) (Heparin) 5,000 units SC Q8 [facility]; Protocol Last Admin: 07/10/18 08:47 Dose: 5,000 units Nafcillin Sodium 1 gm/ Sodium (Chloride) 100 mls @ 100 mls/hr IVPB Q8 [facility]; Protocol Last Admin: 07/10/18 08:49 Dose: 100 mls/hr Vancomycin HCl 1 gm/ Sodium (Chloride) 250 mls @ 166.667 mls/hr IVPB QOTHERDAY [facility]; Protocol Last Admin: 07/09/18 18:35 Dose: 166.667 mls/hr Insulin Detemir (Levemir) 50 units SC HS [facility] Last Admin: 07/09/18 22:13 Dose: 50 u Insulin Human Lispro (Humalog) 10 units SC TIDAC [facility] Last Admin: 07/10/18 08:41 Dose: 10 units Insulin Human Lispro (Humalog) 0 units SC ACHS [facility]; Protocol Last Admin: 07/10/18 08:43 Dose: 1 units Lisinopril (Zestril) 40 mg PO DAILY [facility] Last Admin: 07/10/18 08:59 Dose: 40 mg Morphine Sulfate (Morphine) 2 mg IVP Q4 PRN PRN Reason: Pain, severe (8-10) Last Admin: 07/10/18 05:30 Dose: 2 mg Multivitamins/Minerals (Therapeutic-M Tab) 1 tab PO DAILY [facility] Last Admin: 07/10/18 08:51 Dose: 1 tab Mupirocin (Bactroban Ointment) 1 applic TOP BID [facility] Last Admin: 07/10/18 08:45 Dose: 1 applic Inrsw-6-Utoe Ethyl Esters (Lovaza) 1 gm PO DAILY [facility] Last Admin: 07/10/18 08:48 Dose: 1 gm Oxycodone/Acetaminophen (Percocet 5/325 Mg Tab) 1 tab PO Q6 PRN PRN Reason: Pain, moderate (4-7) Stop: 07/11/18 06:53 Last Admin: 07/09/18 08:34 Dose: 1 tab Pioglitazone HCl (Actos) 15 mg PO DAILY [facility] Last Admin: 07/10/18 08:45 Dose: 15 mg Zolpidem Tartrate (Ambien) 5 mg PO HS PRN PRN Reason: Sleep Last Admin: 07/09/18 21:28 Dose: 5 mg - Labs Labs: - Additional Findings Additional findings: - Additional Findings Additional findings: - Constitutional Appears: No Acute Distress - Head Exam Head Exam: ATRAUMATIC - Eye Exam Eye Exam: EOMI, PERRL - ENT Exam ENT Exam: Normal Oropharynx - Neck Exam Neck exam: Positive for: Full Rom - Respiratory Exam Respiratory Exam: Clear to Auscultation Bilateral, NORMAL BREATHING PATTERN - Cardiovascular Exam Cardiovascular Exam: RRR, +S1, +S2 - GI/Abdominal Exam GI & Abdominal Exam: Normal Bowel Sounds, Soft Additional comments: NT, ND - Back Exam Additional comments: left fourth toe plantar region with small lacerated area with sanguinous discharge, edema of the toe and surrounding region but edema less today - Neurological Exam Neurological exam: Alert, Oriented x 3 Laboratory Results - last 72 hr 07/07/18 07/08/18 07/08/18 23:56 00:02 00:02 WBC 13.4 H RBC 3.92 L Hgb 12.5 Hct 37.2 MCV 94.9 H MCH 31.9 H MCHC 33.6 RDW 12.8 Plt Count 275 MPV 8.6 Neut % (Auto) 75.2 H Lymph % (Auto) 7.4 L [place] % (Auto) 11.0 H Eos % (Auto) 5.9 H Baso % (Auto) 0.5 Neut # (Auto) 10.1 H Lymph # (Auto) 1.0 [place] # (Auto) 1.5 H Eos # (Auto) 0.8 H Baso # (Auto) 0.1 Neutrophils % (Manual) 83 H Band Neutrophils % 1 Lymphocytes % (Manual) 8 L Monocytes % (Manual) 7 Basophils % (Manual) 1 Platelet Estimate Normal Anisocytosis (manual) Slight Spherocytes Slight ESR Sodium 133 Potassium 5.0 Chloride 91 L Carbon Dioxide 28 Anion Gap 19 BUN 34 H Creatinine 3.0 H Est GFR ( Amer) 27 Est GFR (Non-Af Amer) 22 POC Glucose (mg/dL) 334 H Random Glucose 349 H Hemoglobin A1c Lactic Acid Calcium 9.3 Total Bilirubin 0.8 AST 92 H ALT 79 H Alkaline Phosphatase 191 H Total Protein 7.4 Albumin 3.9 Globulin 3.5 Albumin/Globulin Ratio 1.1 Vitamin B12 TSH 3rd Generation Urine Color Urine Clarity Urine pH Ur Specific [place] Urine Protein Urine Glucose (UA) Urine Ketones Urine Blood Urine Nitrate Urine Bilirubin Urine Urobilinogen Ur Leukocyte Esterase Urine RBC (Auto) Urine Microscopic WBC 07/08/18 07/08/18 07/08/18 00:02 02:00 02:53 WBC RBC Hgb Hct MCV MCH MCHC RDW Plt Count MPV Neut % (Auto) Lymph % (Auto) [place] % (Auto) Eos % (Auto) Baso % (Auto) Neut # (Auto) Lymph # (Auto) [place] # (Auto) Eos # (Auto) Baso # (Auto) Neutrophils % (Manual) Band Neutrophils % Lymphocytes % (Manual) Monocytes % (Manual) Basophils % (Manual) Platelet Estimate Anisocytosis (manual) Spherocytes ESR Sodium Potassium Chloride Carbon Dioxide Anion Gap BUN Creatinine Est GFR ( Amer) Est GFR (Non-Af Amer) POC Glucose (mg/dL) 317 H 279 H Random Glucose Hemoglobin A1c Lactic Acid 1.8 Calcium Total Bilirubin AST ALT Alkaline Phosphatase Total Protein Albumin Globulin Albumin/Globulin Ratio Vitamin B12 TSH 3rd Generation Urine Color Urine Clarity Urine pH Ur Specific [place] Urine Protein Urine Glucose (UA) Urine Ketones Urine Blood Urine Nitrate Urine Bilirubin Urine Urobilinogen Ur Leukocyte Esterase Urine RBC (Auto) Urine Microscopic WBC 07/08/18 07/08/18 07/08/18 05:16 10:00 10:00 WBC 14.7 H RBC 3.95 L Hgb 12.5 Hct 37.2 MCV 94.2 H MCH 31.6 H MCHC 33.6 RDW 12.8 Plt Count 297 MPV 8.3 Neut % (Auto) 74.8 Lymph % (Auto) 8.7 L [place] % (Auto) 11.8 H Eos % (Auto) 4.3 H Baso % (Auto) 0.4 Neut # (Auto) 11.0 H Lymph # (Auto) 1.3 [place] # (Auto) 1.7 H Eos # (Auto) 0.6 Baso # (Auto) 0.1 Neutrophils % (Manual) Band Neutrophils % Lymphocytes % (Manual) Monocytes % (Manual) Basophils % (Manual) Platelet Estimate Anisocytosis (manual) Spherocytes ESR Sodium 135 Potassium 5.1 H Chloride 95 L Carbon Dioxide 25 Anion Gap 20 BUN 34 H Creatinine 3.0 H Est GFR ( Amer) 27 Est GFR (Non-Af Amer) 22 POC Glucose (mg/dL) 260 H Random Glucose 252 H Hemoglobin A1c Lactic Acid Calcium 9.2 Total Bilirubin AST ALT Alkaline Phosphatase Total Protein Albumin Globulin Albumin/Globulin Ratio Vitamin B12 599 TSH 3rd Generation 1.37 Urine Color Urine Clarity Urine pH Ur Specific [place] Urine Protein Urine Glucose (UA) Urine Ketones Urine Blood Urine Nitrate Urine Bilirubin Urine Urobilinogen Ur Leukocyte Esterase Urine RBC (Auto) Urine Microscopic WBC 07/08/18 07/08/18 07/08/18 10:00 11:04 15:41 WBC RBC Hgb Hct MCV MCH MCHC RDW Plt Count MPV Neut % (Auto) Lymph % (Auto) [place] % (Auto) Eos % (Auto) Baso % (Auto) Neut # (Auto) Lymph # (Auto) [place] # (Auto) Eos # (Auto) Baso # (Auto) Neutrophils % (Manual) Band Neutrophils % Lymphocytes % (Manual) Monocytes % (Manual) Basophils % (Manual) Platelet Estimate Anisocytosis (manual) Spherocytes ESR Sodium Potassium Chloride Carbon Dioxide Anion Gap BUN Creatinine Est GFR ( Amer) Est GFR (Non-Af Amer) POC Glucose (mg/dL) 261 H 208 H Random Glucose Hemoglobin A1c 10.0 H Lactic Acid Calcium Total Bilirubin AST ALT Alkaline Phosphatase Total Protein Albumin Globulin Albumin/Globulin Ratio Vitamin B12 TSH 3rd Generation Urine Color Urine Clarity Urine pH Ur Specific [place] Urine Protein Urine Glucose (UA) Urine Ketones Urine Blood Urine Nitrate Urine Bilirubin Urine Urobilinogen Ur Leukocyte Esterase Urine RBC (Auto) Urine Microscopic WBC 07/08/18 07/08/18 07/08/18 16:32 19:16 21:03 WBC RBC Hgb Hct MCV MCH MCHC RDW Plt Count MPV Neut % (Auto) Lymph % (Auto) [place] % (Auto) Eos % (Auto) Baso % (Auto) Neut # (Auto) Lymph # (Auto) [place] # (Auto) Eos # (Auto) Baso # (Auto) Neutrophils % (Manual) Band Neutrophils % Lymphocytes % (Manual) Monocytes % (Manual) Basophils % (Manual) Platelet Estimate Anisocytosis (manual) Spherocytes ESR 91 H Sodium Potassium Chloride Carbon Dioxide Anion Gap BUN Creatinine Est GFR ( Amer) Est GFR (Non-Af Amer) POC Glucose (mg/dL) 225 H Random Glucose Hemoglobin A1c Lactic Acid Calcium Total Bilirubin AST ALT Alkaline Phosphatase Total Protein Albumin Globulin Albumin/Globulin Ratio Vitamin B12 TSH 3rd Generation Urine Color Yellow Urine Clarity Slighty-cloudy Urine pH 5.0 Ur Specific [place] 1.023 Urine Protein 100 Urine Glucose (UA) Neg Urine Ketones Negative Urine Blood Negative Urine Nitrate Negative Urine Bilirubin Negative Urine Urobilinogen 1.0 Ur Leukocyte Esterase Neg Urine RBC (Auto) 2 Urine Microscopic WBC 2 07/09/18 07/09/18 07/09/18 05:29 06:10 11:01 WBC 13.2 H RBC 3.56 L Hgb 11.3 L Hct 33.5 L MCV 94.2 H MCH 31.9 H MCHC 33.8 RDW 12.6 Plt Count 303 MPV 8.4 Neut % (Auto) 72.0 Lymph % (Auto) 9.3 L [place] % (Auto) 14.5 H Eos % (Auto) 3.6 Baso % (Auto) 0.6 Neut # (Auto) 9.5 H Lymph # (Auto) 1.2 [place] # (Auto) 1.9 H Eos # (Auto) 0.5 Baso # (Auto) 0.1 Neutrophils % (Manual) Band Neutrophils % Lymphocytes % (Manual) Monocytes % (Manual) Basophils % (Manual) Platelet Estimate Anisocytosis (manual) Spherocytes ESR Sodium Potassium Chloride Carbon Dioxide Anion Gap BUN Creatinine Est GFR ( Amer) Est GFR (Non-Af Amer) POC Glucose (mg/dL) 195 H 235 H Random Glucose Hemoglobin A1c Lactic Acid Calcium Total Bilirubin AST ALT Alkaline Phosphatase Total Protein Albumin Globulin Albumin/Globulin Ratio Vitamin B12 TSH 3rd Generation Urine Color Urine Clarity Urine pH Ur Specific [place] Urine Protein Urine Glucose (UA) Urine Ketones Urine Blood Urine Nitrate Urine Bilirubin Urine Urobilinogen Ur Leukocyte Esterase Urine RBC (Auto) Urine Microscopic WBC 07/09/18 07/09/18 07/09/18 11:20 16:27 21:44 WBC RBC Hgb Hct MCV MCH MCHC RDW Plt Count MPV Neut % (Auto) Lymph % (Auto) [place] % (Auto) Eos % (Auto) Baso % (Auto) Neut # (Auto) Lymph # (Auto) [place] # (Auto) Eos # (Auto) Baso # (Auto) Neutrophils % (Manual) Band Neutrophils % Lymphocytes % (Manual) Monocytes % (Manual) Basophils % (Manual) Platelet Estimate Anisocytosis (manual) Spherocytes ESR Sodium 133 Potassium 4.8 Chloride 93 L Carbon Dioxide 27 Anion Gap 18 BUN 34 H Creatinine 3.1 H Est GFR ( Amer) 26 Est GFR (Non-Af Amer) 22 POC Glucose (mg/dL) 206 H 224 H Random Glucose 259 H Hemoglobin A1c Lactic Acid Calcium 8.9 Total Bilirubin AST ALT Alkaline Phosphatase Total Protein Albumin Globulin Albumin/Globulin Ratio Vitamin B12 TSH 3rd Generation Urine Color Urine Clarity Urine pH Ur Specific [place] Urine Protein Urine Glucose (UA) Urine Ketones Urine Blood Urine Nitrate Urine Bilirubin Urine Urobilinogen Ur Leukocyte Esterase Urine RBC (Auto) Urine Microscopic WBC 07/10/18 07/10/18 07/10/18 05:23 11:31 15:50 WBC RBC Hgb Hct MCV MCH MCHC RDW Plt Count MPV Neut % (Auto) Lymph % (Auto) [place] % (Auto) Eos % (Auto) Baso % (Auto) Neut # (Auto) Lymph # (Auto) [place] # (Auto) Eos # (Auto) Baso # (Auto) Neutrophils % (Manual) Band Neutrophils % Lymphocytes % (Manual) Monocytes % (Manual) Basophils % (Manual) Platelet Estimate Anisocytosis (manual) Spherocytes ESR Sodium Potassium Chloride Carbon Dioxide Anion Gap BUN Creatinine Est GFR ( Amer) Est GFR (Non-Af Amer) POC Glucose (mg/dL) 193 H 310 H 267 H Random Glucose Hemoglobin A1c Lactic Acid Calcium Total Bilirubin AST ALT Alkaline Phosphatase Total Protein Albumin Globulin Albumin/Globulin Ratio Vitamin B12 TSH 3rd Generation Urine Color Urine Clarity Urine pH Ur Specific [place] Urine Protein Urine Glucose (UA) Urine Ketones Urine Blood Urine Nitrate Urine Bilirubin Urine Urobilinogen Ur Leukocyte Esterase Urine RBC (Auto) Urine Microscopic WBC 07/10/18 19:35 WBC 15.0 H RBC 3.44 L Hgb 10.9 L Hct 32.8 L MCV 95.2 H MCH 31.8 H MCHC 33.4 RDW 13.0 Plt Count 332 MPV 8.2 Neut % (Auto) 75.5 H Lymph % (Auto) 9.8 L [place] % (Auto) 11.0 H Eos % (Auto) 3.1 Baso % (Auto) 0.6 Neut # (Auto) 11.3 H Lymph # (Auto) 1.5 [place] # (Auto) 1.7 H Eos # (Auto) 0.5 Baso # (Auto) 0.1 Neutrophils % (Manual) Band Neutrophils % Lymphocytes % (Manual) Monocytes % (Manual) Basophils % (Manual) Platelet Estimate Anisocytosis (manual) Spherocytes ESR Sodium Potassium Chloride Carbon Dioxide Anion Gap BUN Creatinine Est GFR ( Amer) Est GFR (Non-Af Amer) POC Glucose (mg/dL) Random Glucose Hemoglobin A1c Lactic Acid Calcium Total Bilirubin AST ALT Alkaline Phosphatase Total Protein Albumin Globulin Albumin/Globulin Ratio Vitamin B12 TSH 3rd Generation Urine Color Urine Clarity Urine pH Ur Specific [place] Urine Protein Urine Glucose (UA) Urine Ketones Urine Blood Urine Nitrate Urine Bilirubin Urine Urobilinogen Ur Leukocyte Esterase Urine RBC (Auto) Urine Microscopic WBC Microbiology 07/09/18 12:15 Blood-Venous Blood Culture - Preliminary NO GROWTH AFTER 24 HOURS 07/09/18 12:00 Blood-Venous Blood Culture - Preliminary NO GROWTH AFTER 24 HOURS 07/07/18 00:02 Blood-Venous Blood Culture - Preliminary NO GROWTH AFTER 48 HOURS 07/08/18 19:16 Toe Gram Stain - Final 07/08/18 19:16 Toe Wound Culture - Preliminary Beta Hemolytic Strep Group B 07/08/18 19:16 Urine,Clean Catch Urine Culture - Final No Growth (<1,000 CFU/ML) 07/08/18 00:17 Blood-Venous Blood Culture - Preliminary NO GROWTH AFTER 48 HOURS Assessment and Plan (1) Cellulitis of left foot Status: Acute (2) Leukocytosis Status: Acute - Assessment and Plan (Free Text) Assessment: A/P- 48 year old male with DM Ii admitetd with left foot fourth digit region with open lesion and surrounding cellulitis. febrike again today. leukocytosis increasing today. HIGH ESR wound cx- Strep group B and MSSA MRI report-Possible Om of left fourth metatarsal head. blood cx- neg x 4 Plan advise to continue patient on IV nafcillin ( renal dose ) for MSSA foot infection.day #2 advise to also continue renal dose vanco q48 hours. check 2 more blood cx. await podiatry decision regarding ? left fourth toe OM , will mot likely need surgical debridement of the necrotic bone.
--- NOTE | 2018-07-10 16:25 | CP.PCM.PN ---
Subjective - Date & Time of Evaluation Date of Evaluation: 07/10/18 Time of Evaluation: 16:23 - Subjective Subjective: Podiatry progress note - Dr. Adrienne AlvarezM seen and evaluated at bedside this AM. Resting comfortably but reports fever symptoms. Reports mild pain to left foot that has not gotten better or worse. Denies n/v/sob/cp and has no other acute complaints at this time. Objective - Vital Signs/Intake and Output Vital Signs (last 24 hours): Temp Pulse Resp BP Pulse Ox 101.0 F H 97 H 20 139/93 H 95 07/10/18 16:20 07/10/18 16:20 07/10/18 16:20 07/10/18 16:20 07/10/18 16:20 - Medications Medications: Current Medications Acetaminophen (Tylenol 325mg Tab) 650 mg PO Q4 PRN PRN Reason: Fever >101.0 F Last Admin: 07/10/18 16:09 Dose: 650 mg Amlodipine Besylate (Norvasc) 10 mg PO DAILY [facility] Last Admin: 07/10/18 09:00 Dose: 10 mg Aspirin (Ecotrin) 81 mg PO DAILY [facility] Last Admin: 07/10/18 08:46 Dose: 81 mg Atorvastatin Calcium (Lipitor) 20 mg PO DAILY [facility] Last Admin: 07/10/18 08:48 Dose: 20 mg Dextrose (Dextrose 50% Inj) 0 ml IV STAT PRN; Protocol PRN Reason: Hypoglycemia Protocol Dextrose (Glutose 15) 0 gm PO ONCE PRN; Protocol PRN Reason: Hypoglycemia Protocol Glipizide (Glucotrol Xl) 10 mg PO DAILY [facility] Last Admin: 07/10/18 08:46 Dose: 10 mg Glucagon (Glucagen Diagnostic Kit) 0 mg IM STAT PRN; Protocol PRN Reason: Hypoglycemia Protocol Heparin Sodium (Porcine) (Heparin) 5,000 units SC Q8 [facility]; Protocol Last Admin: 07/10/18 08:47 Dose: 5,000 units Nafcillin Sodium 1 gm/ Sodium (Chloride) 100 mls @ 100 mls/hr IVPB Q8 [facility]; Protocol Last Admin: 07/10/18 08:49 Dose: 100 mls/hr Vancomycin HCl 1 gm/ Sodium (Chloride) 250 mls @ 166.667 mls/hr IVPB QOTHERDAY [facility]; Protocol Last Admin: 07/09/18 18:35 Dose: 166.667 mls/hr Insulin Detemir (Levemir) 50 units SC HS [facility] Last Admin: 07/09/18 22:13 Dose: 50 u Insulin Human Lispro (Humalog) 10 units SC TIDAC [facility] Last Admin: 07/10/18 11:35 Dose: 10 units Insulin Human Lispro (Humalog) 0 units SC ACHS [facility]; Protocol Last Admin: 07/10/18 11:35 Dose: 4 units Lisinopril (Zestril) 40 mg PO DAILY [facility] Last Admin: 07/10/18 08:59 Dose: 40 mg Morphine Sulfate (Morphine) 2 mg IVP Q4 PRN PRN Reason: Pain, severe (8-10) Last Admin: 07/10/18 15:10 Dose: 2 mg Multivitamins/Minerals (Therapeutic-M Tab) 1 tab PO DAILY [facility] Last Admin: 07/10/18 08:51 Dose: 1 tab Mupirocin (Bactroban Ointment) 1 applic TOP BID [facility] Last Admin: 07/10/18 08:45 Dose: 1 applic Uocee-0-Nblq Ethyl Esters (Lovaza) 1 gm PO DAILY [facility] Last Admin: 07/10/18 08:48 Dose: 1 gm Oxycodone/Acetaminophen (Percocet 5/325 Mg Tab) 1 tab PO Q6 PRN PRN Reason: Pain, moderate (4-7) Stop: 07/11/18 06:53 Last Admin: 07/09/18 08:34 Dose: 1 tab Pioglitazone HCl (Actos) 15 mg PO DAILY [facility] Last Admin: 07/10/18 08:45 Dose: 15 mg Zolpidem Tartrate (Ambien) 5 mg PO HS PRN PRN Reason: Sleep Last Admin: 07/09/18 21:28 Dose: 5 mg - Labs Labs: 07/09/18 06:10 07/09/18 11:20 - Constitutional Appears: Non-toxic - Head Exam Head Exam: ATRAUMATIC, NORMOCEPHALIC - Extremities Exam Additional comments: LLE focused exam: Vascular: DP/PT 1/4, CFT < 3 seconds, TG warm to warm, no increased warmth appreciated to L 4th toe, mild +1 edema to 4th digit circumfrentially Ortho: Mild tenderness to palpation of plantar sulcus, HAV correction appreciated, left digit partial amputation Neuro: Gross sensaton intact, protective sensation diminished Derm: Laceration appreciated to plantar sulcus of 4th digit, interdigital maceration appreciated to 3rd and 4th interspaces, ecchymosis appreciated to 4th digit, no purulence, no probe to bone, no drainage, no malodor, no clinical signs of infection at this time. - Neurological Exam Neurological Exam: Alert, Awake, Oriented x3 - Psychiatric Exam Psychiatric exam: Normal Affect, Normal Mood Assessment and Plan - Assessment and Plan (Free Text) Assessment: 48M with L foot laceration Plan: Patient seen and evaluated Discussed patient in detail with Dr. Deleon Febrile, follow CBC for WBC 13.2 (07/08) L foot x-rays ordered; no evidence of OM, no soft tissue emphysema appreciated C/w IV abx; Zosyn ID on board; appreciate recs Wound Cx from [facility] (taken 07/05); B hemolytic strep, Staph Aureus MRI - possible osteomyelitis of left fourth metatarsal head Local wound care; wound cleansed with saline and dressed with betadine, DSD Will continue to follow
[2018-07-10 19:42] LABS: BASO # 0.1 K/uL (0.0-0.2); BASO % 0.6 % (0.0-2.0); EOS # 0.5 K/uL (0.0-0.7); EOS % 3.1 % (0.0-4.0); HEMOGLOBIN 10.9 g/dL (12.0-18.0); LYMPH # 1.5 K/uL (1.0-4.3); LYMPH % 9.8 % (20.0-40.0); MEAN CELL VOLUME 95.2 fl (80.0-94.0); MEAN CORPUSCULAR HEMOGLOBIN 31.8 pg (27.0-31.0); MEAN CORPUSCULAR HGB CONC 33.4 g/dL (33.0-37.0); MEAN PLATELET VOLUME 8.2 fl (7.2-11.7); MONO # 1.7 K/uL (0.0-0.8); NEUT # 11.3 K/uL (1.8-7.0); NEUT % 75.5 % (50.0-75.0); RBC 3.44 Mil/uL (4.40-5.90)
[2018-07-10] MEDS: Insulin Detemir 100 Units/ml Inj SC SCH (21:29)
--- NOTE | 2018-07-10 22:40 | CP.PCM.PN ---
Subjective - Date & Time of Evaluation Date of Evaluation: 07/09/18 Time of Evaluation: 19:45 Objective - Vital Signs/Intake and Output Vital Signs (last 24 hours): Temp Pulse Resp BP Pulse Ox 98.5 F 97 H 20 139/93 H 95 07/10/18 17:09 07/10/18 16:20 07/10/18 16:20 07/10/18 16:20 07/10/18 16:20 - Medications Medications: Current Medications Acetaminophen (Tylenol 325mg Tab) 650 mg PO Q4 PRN PRN Reason: Fever >101.0 F Last Admin: 07/10/18 16:09 Dose: 650 mg Amlodipine Besylate (Norvasc) 10 mg PO DAILY [facility] Last Admin: 07/10/18 09:00 Dose: 10 mg Aspirin (Ecotrin) 81 mg PO DAILY [facility] Last Admin: 07/10/18 08:46 Dose: 81 mg Atorvastatin Calcium (Lipitor) 20 mg PO DAILY [facility] Last Admin: 07/10/18 08:48 Dose: 20 mg Dextrose (Dextrose 50% Inj) 0 ml IV STAT PRN; Protocol PRN Reason: Hypoglycemia Protocol Dextrose (Glutose 15) 0 gm PO ONCE PRN; Protocol PRN Reason: Hypoglycemia Protocol Glipizide (Glucotrol Xl) 10 mg PO DAILY [facility] Last Admin: 07/10/18 08:46 Dose: 10 mg Glucagon (Glucagen Diagnostic Kit) 0 mg IM STAT PRN; Protocol PRN Reason: Hypoglycemia Protocol Heparin Sodium (Porcine) (Heparin) 5,000 units SC Q8 [facility]; Protocol Last Admin: 07/10/18 16:34 Dose: 5,000 units Nafcillin Sodium 1 gm/ Sodium (Chloride) 100 mls @ 100 mls/hr IVPB Q8 [facility]; Protocol Last Admin: 07/10/18 16:36 Dose: 100 mls/hr Vancomycin HCl 1 gm/ Sodium (Chloride) 250 mls @ 166.667 mls/hr IVPB QOTHERDAY [facility]; Protocol Last Admin: 07/09/18 18:35 Dose: 166.667 mls/hr Insulin Detemir (Levemir) 50 units SC HS [facility] Last Admin: 07/10/18 21:29 Dose: 50 u Insulin Human Lispro (Humalog) 10 units SC TIDAC [facility] Last Admin: 07/10/18 16:35 Dose: 10 units Insulin Human Lispro (Humalog) 0 units SC [facility]; Protocol Last Admin: 07/10/18 22:38 Dose: Not Given Lisinopril (Zestril) 40 mg PO DAILY [facility] Last Admin: 07/10/18 08:59 Dose: 40 mg Morphine Sulfate (Morphine) 2 mg IVP Q4 PRN PRN Reason: Pain, severe (8-10) Last Admin: 07/10/18 21:35 Dose: 2 mg Multivitamins/Minerals (Therapeutic-M Tab) 1 tab PO DAILY [facility] Last Admin: 07/10/18 08:51 Dose: 1 tab Mupirocin (Bactroban Ointment) 1 applic TOP BID [facility] Last Admin: 07/10/18 17:08 Dose: Not Given Aawzh-[id number]-Vqai Ethyl Esters (Lovaza) 1 gm PO DAILY [facility] Last Admin: 07/10/18 08:48 Dose: 1 gm Oxycodone/Acetaminophen (Percocet 5/325 Mg Tab) 1 tab PO Q6 PRN PRN Reason: Pain, moderate (4-7) Stop: 07/11/18 06:53 Last Admin: 07/09/18 08:34 Dose: 1 tab Pioglitazone HCl (Actos) 15 mg PO DAILY [facility] Last Admin: 07/10/18 08:45 Dose: 15 mg Zolpidem Tartrate (Ambien) 5 mg PO HS PRN PRN Reason: Sleep Last Admin: 07/09/18 21:28 Dose: 5 mg - Labs Labs: 07/10/18 19:35 07/09/18 11:20
--- NOTE | 2018-07-10 22:41 | CP.PCM.PN ---
Subjective - Date & Time of Evaluation Date of Evaluation: 07/10/18 Time of Evaluation: 18:50 Objective - Vital Signs/Intake and Output Vital Signs (last 24 hours): Temp Pulse Resp BP Pulse Ox 98.5 F 97 H 20 139/93 H 95 07/10/18 17:09 07/10/18 16:20 07/10/18 16:20 07/10/18 16:20 07/10/18 16:20 - Medications Medications: Current Medications Acetaminophen (Tylenol 325mg Tab) 650 mg PO Q4 PRN PRN Reason: Fever >101.0 F Last Admin: 07/10/18 16:09 Dose: 650 mg Amlodipine Besylate (Norvasc) 10 mg PO DAILY [facility] Last Admin: 07/10/18 09:00 Dose: 10 mg Aspirin (Ecotrin) 81 mg PO DAILY [facility] Last Admin: 07/10/18 08:46 Dose: 81 mg Atorvastatin Calcium (Lipitor) 20 mg PO DAILY [facility] Last Admin: 07/10/18 08:48 Dose: 20 mg Dextrose (Dextrose 50% Inj) 0 ml IV STAT PRN; Protocol PRN Reason: Hypoglycemia Protocol Dextrose (Glutose 15) 0 gm PO ONCE PRN; Protocol PRN Reason: Hypoglycemia Protocol Glipizide (Glucotrol Xl) 10 mg PO DAILY [facility] Last Admin: 07/10/18 08:46 Dose: 10 mg Glucagon (Glucagen Diagnostic Kit) 0 mg IM STAT PRN; Protocol PRN Reason: Hypoglycemia Protocol Heparin Sodium (Porcine) (Heparin) 5,000 units SC Q8 [facility]; Protocol Last Admin: 07/10/18 16:34 Dose: 5,000 units Nafcillin Sodium 1 gm/ Sodium (Chloride) 100 mls @ 100 mls/hr IVPB Q8 [facility]; Protocol Last Admin: 07/10/18 16:36 Dose: 100 mls/hr Vancomycin HCl 1 gm/ Sodium (Chloride) 250 mls @ 166.667 mls/hr IVPB QOTHERDAY [facility]; Protocol Last Admin: 07/09/18 18:35 Dose: 166.667 mls/hr Insulin Detemir (Levemir) 50 units SC HS [facility] Last Admin: 07/10/18 21:29 Dose: 50 u Insulin Human Lispro (Humalog) 10 units SC TIDAC [facility] Last Admin: 07/10/18 16:35 Dose: 10 units Insulin Human Lispro (Humalog) 0 units SC [facility]; Protocol Last Admin: 07/10/18 22:38 Dose: Not Given Lisinopril (Zestril) 40 mg PO DAILY [facility] Last Admin: 07/10/18 08:59 Dose: 40 mg Morphine Sulfate (Morphine) 2 mg IVP Q4 PRN PRN Reason: Pain, severe (8-10) Last Admin: 07/10/18 21:35 Dose: 2 mg Multivitamins/Minerals (Therapeutic-M Tab) 1 tab PO DAILY [facility] Last Admin: 07/10/18 08:51 Dose: 1 tab Mupirocin (Bactroban Ointment) 1 applic TOP BID [facility] Last Admin: 07/10/18 17:08 Dose: Not Given Qzosb-2-Rmpb Ethyl Esters (Lovaza) 1 gm PO DAILY [facility] Last Admin: 07/10/18 08:48 Dose: 1 gm Oxycodone/Acetaminophen (Percocet 5/325 Mg Tab) 1 tab PO Q6 PRN PRN Reason: Pain, moderate (4-7) Stop: 07/11/18 06:53 Last Admin: 07/09/18 08:34 Dose: 1 tab Pioglitazone HCl (Actos) 15 mg PO DAILY [facility] Last Admin: 07/10/18 08:45 Dose: 15 mg Zolpidem Tartrate (Ambien) 5 mg PO HS PRN PRN Reason: Sleep Last Admin: 07/09/18 21:28 Dose: 5 mg - Labs Labs: 07/10/18 19:35 07/09/18 11:20
[2018-07-11] MEDS: Morphine 4 MG/ML VIAL IVP PRN ×4 (01:45→20:55)
[2018-07-11 07:03] LABS: BASO # 0.1 K/uL (0.0-0.2); BASO % 0.7 % (0.0-2.0); EOS # 0.7 K/uL (0.0-0.7); LYMPH # 1.4 K/uL (1.0-4.3); LYMPH % 10.2 % (20.0-40.0); MEAN CELL VOLUME 94.3 fl (80.0-94.0); MEAN CORPUSCULAR HEMOGLOBIN 32.1 pg (27.0-31.0); MEAN PLATELET VOLUME 8.3 fl (7.2-11.7); MONO # 1.5 K/uL (0.0-0.8); MONO % 10.3 % (0.0-10.0); NEUT # 10.5 K/uL (1.8-7.0); NEUT % 73.8 % (50.0-75.0); NRBC % 0.1 % (0.0-0.0); RBC 3.41 Mil/uL (4.40-5.90); RED CELL DISTRIBUTION WIDTH 12.9 % (11.5-14.5); WHITE BLOOD COUNT 14.2 K/uL (4.8-10.8)
[2018-07-11] MEDS: Multivitamin With Minerals Tab PO SCH (08:26)
[2018-07-11] MEDS: Omega-3-Acid Ethyl Esters 1 GM Cap PO SCH (08:26)
[2018-07-11] MEDS: Mupirocin 2% Oint 1GM UD TOP SCH ×2 (08:27→17:25)
[2018-07-11] MEDS: GlipiZIDE 10 mg SR Tab PO SCH (08:27)
[2018-07-11] MEDS: Insulin Lispro (humaLOG) 100 Units/ml Inj SC SCH ×7 (08:35→21:28)
--- NOTE | 2018-07-11 13:47 | CP.PCM.PN ---
Subjective - Date & Time of Evaluation Date of Evaluation: 07/11/18 Time of Evaluation: 13:43 - Subjective Subjective: Podiatry progress note - Dr. Deleon 48M seen and evaluated at bedside this AM. Resting comfortably but reports fever symptoms overnight. Reports mild pain to left foot that has not gotten better or worse. Denies n/v/sob/cp and has no other acute complaints at this time. Objective - Vital Signs/Intake and Output Vital Signs (last 24 hours): Temp Pulse Resp BP Pulse Ox 98.0 F 87 20 149/89 96 07/11/18 08:53 07/11/18 08:53 07/11/18 08:53 07/11/18 08:53 07/11/18 08:53 - Medications Medications: Current Medications Acetaminophen (Tylenol 325mg Tab) 650 mg PO Q4 PRN PRN Reason: Fever >101.0 F Last Admin: 07/10/18 16:09 Dose: 650 mg Amlodipine Besylate (Norvasc) 10 mg PO DAILY [facility] Last Admin: 07/11/18 08:33 Dose: 10 mg Aspirin (Ecotrin) 81 mg PO DAILY [facility] Last Admin: 07/11/18 08:27 Dose: 81 mg Atorvastatin Calcium (Lipitor) 20 mg PO DAILY [facility] Last Admin: 07/11/18 08:28 Dose: 20 mg Dextrose (Dextrose 50% Inj) 0 ml IV STAT PRN; Protocol PRN Reason: Hypoglycemia Protocol Dextrose (Glutose 15) 0 gm PO ONCE PRN; Protocol PRN Reason: Hypoglycemia Protocol Glipizide (Glucotrol Xl) 10 mg PO DAILY [facility] Last Admin: 07/11/18 08:27 Dose: 10 mg Glucagon (Glucagen Diagnostic Kit) 0 mg IM STAT PRN; Protocol PRN Reason: Hypoglycemia Protocol Heparin Sodium (Porcine) (Heparin) 5,000 units SC Q8 [facility]; Protocol Last Admin: 07/11/18 08:28 Dose: 5,000 units Nafcillin Sodium 1 gm/ Sodium (Chloride) 100 mls @ 100 mls/hr IVPB Q8 [facility]; Protocol Last Admin: 07/11/18 08:37 Dose: 100 mls/hr Vancomycin HCl 1 gm/ Sodium (Chloride) 250 mls @ 166.667 mls/hr IVPB QOTHERDAY [facility]; Protocol Last Admin: 07/11/18 08:37 Dose: 166.667 mls/hr Insulin Detemir (Levemir) 50 units SC HS [facility] Last Admin: 07/10/18 21:29 Dose: 50 u Insulin Human Lispro (Humalog) 10 units SC TIDAC [facility] Last Admin: 07/11/18 12:32 Dose: 10 units Insulin Human Lispro (Humalog) 0 units SC ACHS [facility]; Protocol Last Admin: 07/11/18 12:32 Dose: 4 units Lisinopril (Zestril) 40 mg PO DAILY [facility] Last Admin: 07/11/18 08:34 Dose: 40 mg Morphine Sulfate (Morphine) 2 mg IVP Q4 PRN PRN Reason: Pain, severe (8-10) Last Admin: 07/11/18 08:50 Dose: 2 mg Multivitamins/Minerals (Therapeutic-M Tab) 1 tab PO DAILY [facility] Last Admin: 07/11/18 08:26 Dose: 1 tab Mupirocin (Bactroban Ointment) 1 applic TOP BID [facility] Last Admin: 07/11/18 08:27 Dose: Not Given Tctzn-7-Pdxg Ethyl Esters (Lovaza) 1 gm PO DAILY [facility] Last Admin: 07/11/18 08:26 Dose: 1 gm Pioglitazone HCl (Actos) 15 mg PO DAILY [facility] Last Admin: 07/11/18 08:26 Dose: 15 mg Zolpidem Tartrate (Ambien) 5 mg PO HS PRN PRN Reason: Sleep Last Admin: 07/09/18 21:28 Dose: 5 mg - Labs Labs: 07/11/18 05:30 07/09/18 11:20 - Constitutional Appears: Non-toxic - Head Exam Head Exam: NORMOCEPHALIC - Extremities Exam Additional comments: LLE focused exam: Vascular: DP/PT 1/4, CFT < 3 seconds, TG warm to warm, no increased warmth appreciated to L 4th toe, mild +1 edema to 4th digit circumfrentially Ortho: Mild tenderness to palpation of plantar sulcus, HAV correction appreciated, left digit partial amputation Neuro: Gross sensaton intact, protective sensation diminished Derm: Laceration appreciated to plantar sulcus of 4th digit, interdigital maceration appreciated to 3rd and 4th interspaces, ecchymosis appreciated to 4th digit, no purulence, no probe to bone, no drainage, no malodor, no clinical signs of infection at this time. - Neurological Exam Neurological Exam: Alert, Awake, Oriented x3 - Psychiatric Exam Psychiatric exam: Normal Affect, Normal Mood Assessment and Plan - Assessment and Plan (Free Text) Assessment: 48M with L foot laceration Plan: Patient seen and evaluated Discussed patient in detail with Dr. Deleon Afebrile, WBC 14.2 L foot x-rays ordered; no evidence of OM, no soft tissue emphysema appreciated C/w IV abx; Nafcillin, vanco ID on board; appreciate recs Wound Cx from [facility] (taken 07/05); B hemolytic strep, Staph Aureus MRI - possible osteomyelitis of left fourth metatarsal head Local wound care; wound cleansed with saline and dressed with betadine, DSD Plan: surgery tomorrow for left foot incision and drainage with removal of all necrotic soft tissue and bone NPO order placed Medical clearance appreciated Will continue to follow
[2018-07-11] MEDS: Sodium Chloride 0.9% 1,000 ML IV SCH (20:58)
[2018-07-11] MEDS: Insulin Detemir 100 Units/ml Inj SC SCH (21:27)
[2018-07-12] MEDS: Morphine 4 MG/ML VIAL IVP PRN ×3 (03:34→19:56)
[2018-07-12] MEDS: Insulin Lispro (humaLOG) 100 Units/ml Inj SC SCH ×6 (07:40→22:07)
[2018-07-12 09:28] LABS: BASO # 0.1 K/uL (0.0-0.2); BASO % 0.6 % (0.0-2.0); EOS # 0.6 K/uL (0.0-0.7); EOS % 4.5 % (0.0-4.0); HEMOGLOBIN 10.8 g/dL (12.0-18.0); LYMPH # 1.3 K/uL (1.0-4.3); LYMPH % 9.5 % (20.0-40.0); MEAN CELL VOLUME 93.8 fl (80.0-94.0); MEAN CORPUSCULAR HEMOGLOBIN 31.8 pg (27.0-31.0); MEAN CORPUSCULAR HGB CONC 33.9 g/dL (33.0-37.0); MEAN PLATELET VOLUME 8.4 fl (7.2-11.7); MONO # 1.3 K/uL (0.0-0.8); MONO % 9.9 % (0.0-10.0); NEUT % 75.5 % (50.0-75.0); PLATELET COUNT 438 K/uL (130-400); RBC 3.39 Mil/uL (4.40-5.90); WHITE BLOOD COUNT 13.2 K/uL (4.8-10.8)
[2018-07-12] MEDS: Mupirocin 2% Oint 1GM UD TOP SCH ×2 (09:35→17:56)
[2018-07-12] MEDS: Sodium Chloride 0.9% 1,000 ML IV SCH ×2 (09:35→18:02)
[2018-07-12] MEDS: Multivitamin With Minerals Tab PO SCH (09:35)
[2018-07-12] MEDS: GlipiZIDE 10 mg SR Tab PO SCH (09:35)
[2018-07-12] MEDS: Omega-3-Acid Ethyl Esters 1 GM Cap PO SCH (09:35)
[2018-07-12 09:45] LABS: ALB/GLOB RATIO 0.9 (1.0-2.1); ALBUMIN 3.4 g/dL (3.5-5.0)
[2018-07-12 09:51] LABS: INR 1.2; PROTHROMBIN TIME 13.9 Seconds (9.8-13.1)
[2018-07-12 09:53] LABS: PARTIAL THROMBOPLASTIN TIME 43.1 Seconds (25.6-37.1)
--- NOTE | 2018-07-12 10:41 | CP.PCM.PN ---
Subjective - Date & Time of Evaluation Date of Evaluation: 07/12/18 Time of Evaluation: 10:41 - Subjective Subjective: Id note- Patietn seen and examined today . still c/o pian in left foot 4th toe region. He is going for debridement of the necrotic fourth toe by podiatry today. Objective - Vital Signs/Intake and Output Vital Signs (last 24 hours): Temp Pulse Resp BP Pulse Ox 97.8 F 97 H 20 142/92 H 91 L 07/12/18 08:30 07/12/18 09:49 07/12/18 08:30 07/12/18 09:49 07/12/18 08:30 - Medications Medications: Current Medications Acetaminophen (Tylenol 325mg Tab) 650 mg PO Q4 PRN PRN Reason: Fever >101.0 F Last Admin: 07/11/18 16:42 Dose: 650 mg Amlodipine Besylate (Norvasc) 10 mg PO DAILY [facility] Last Admin: 07/12/18 09:49 Dose: 10 mg Aspirin (Ecotrin) 81 mg PO DAILY [facility] Last Admin: 07/11/18 08:27 Dose: 81 mg Atorvastatin Calcium (Lipitor) 20 mg PO DAILY [facility] Last Admin: 07/12/18 09:35 Dose: Not Given Dextrose (Dextrose 50% Inj) 0 ml IV STAT PRN; Protocol PRN Reason: Hypoglycemia Protocol Dextrose (Glutose 15) 0 gm PO ONCE PRN; Protocol PRN Reason: Hypoglycemia Protocol Glipizide (Glucotrol Xl) 10 mg PO DAILY [facility] Last Admin: 07/12/18 09:35 Dose: Not Given Glucagon (Glucagen Diagnostic Kit) 0 mg IM STAT PRN; Protocol PRN Reason: Hypoglycemia Protocol Heparin Sodium (Porcine) (Heparin) 5,000 units SC Q8 [facility]; Protocol Last Admin: 07/11/18 16:43 Dose: 5,000 units Nafcillin Sodium 1 gm/ Sodium (Chloride) 100 mls @ 100 mls/hr IVPB Q8 [facility]; Protocol Last Admin: 07/12/18 08:29 Dose: 100 mls/hr Vancomycin HCl 1 gm/ Sodium (Chloride) 250 mls @ 166.667 mls/hr IVPB QOTHERDAY [facility]; Protocol Last Admin: 07/11/18 08:37 Dose: 166.667 mls/hr Sodium Chloride (Sodium Chloride 0.9%) 1,000 mls @ 80 mls/hr IV .[id number] [facility] Stop: 07/12/18 20:44 Last Admin: 07/12/18 09:35 Dose: Not Given Insulin Detemir (Levemir) 50 units SC HS [facility] Last Admin: 07/11/18 21:27 Dose: 50 u Insulin Human Lispro (Humalog) 10 units SC TIDAC [facility] Last Admin: 07/12/18 07:40 Dose: Not Given Insulin Human Lispro (Humalog) 0 units SC ACHS [facility]; Protocol Last Admin: 07/12/18 07:40 Dose: Not Given Lisinopril (Zestril) 40 mg PO DAILY [facility] Last Admin: 07/12/18 09:49 Dose: 40 mg Morphine Sulfate (Morphine) 2 mg IVP Q4 PRN PRN Reason: Pain, severe (8-10) Last Admin: 07/12/18 09:50 Dose: 2 mg Multivitamins/Minerals (Therapeutic-M Tab) 1 tab PO DAILY [facility] Last Admin: 07/12/18 09:35 Dose: Not Given Mupirocin (Bactroban Ointment) 1 applic TOP BID [facility] Last Admin: 07/12/18 09:35 Dose: Not Given Spysr-3-Krag Ethyl Esters (Lovaza) 1 gm PO DAILY [facility] Last Admin: 07/12/18 09:35 Dose: Not Given Pioglitazone HCl (Actos) 15 mg PO DAILY [facility] Last Admin: 07/12/18 09:34 Dose: Not Given Zolpidem Tartrate (Ambien) 5 mg PO HS PRN PRN Reason: Sleep Last Admin: 07/12/18 00:10 Dose: 5 mg - Labs Labs: - Additional Findings Additional findings: - Constitutional Appears: No Acute Distress - Head Exam Head Exam: ATRAUMATIC - Eye Exam Eye Exam: EOMI, PERRL - ENT Exam ENT Exam: Normal Oropharynx - Neck Exam Neck exam: Positive for: Full Rom - Respiratory Exam Respiratory Exam: Clear to Auscultation Bilateral, NORMAL BREATHING PATTERN - Cardiovascular Exam Cardiovascular Exam: RRR, +S1, +S2 - GI/Abdominal Exam GI & Abdominal Exam: Normal Bowel Sounds, Soft Additional comments: NT, ND - Back Exam Additional comments: left fourth toe plantar region with small lacerated area with sanguinous discharge, edema of the toe and surrounding region but edema less today - Neurological Exam Neurological exam: Alert, Oriented x 3 Laboratory Results - last 72 hr 07/09/18 07/09/18 07/10/18 16:27 21:44 05:23 WBC RBC Hgb Hct MCV MCH MCHC RDW Plt Count MPV Neut % (Auto) Lymph % (Auto) [place] % (Auto) Eos % (Auto) Baso % (Auto) Neut # (Auto) Lymph # (Auto) [place] # (Auto) Eos # (Auto) Baso # (Auto) PT INR APTT Sodium Potassium Chloride Carbon Dioxide Anion Gap BUN Creatinine Est GFR ( Amer) Est GFR (Non-Af Amer) POC Glucose (mg/dL) 206 H 224 H 193 H Random Glucose Calcium Total Bilirubin AST ALT Alkaline Phosphatase Total Protein Albumin Globulin Albumin/Globulin Ratio Blood Type Antibody Screen BBK History Checked 07/10/18 07/10/18 07/10/18 11:31 15:50 19:35 WBC 15.0 H RBC 3.44 L Hgb 10.9 L Hct 32.8 L MCV 95.2 H MCH 31.8 H MCHC 33.4 RDW 13.0 Plt Count 332 MPV 8.2 Neut % (Auto) 75.5 H Lymph % (Auto) 9.8 L [place] % (Auto) 11.0 H Eos % (Auto) 3.1 Baso % (Auto) 0.6 Neut # (Auto) 11.3 H Lymph # (Auto) 1.5 [place] # (Auto) 1.7 H Eos # (Auto) 0.5 Baso # (Auto) 0.1 PT INR APTT Sodium Potassium Chloride Carbon Dioxide Anion Gap BUN Creatinine Est GFR ( Amer) Est GFR (Non-Af Amer) POC Glucose (mg/dL) 310 H 267 H Random Glucose Calcium Total Bilirubin AST ALT Alkaline Phosphatase Total Protein Albumin Globulin Albumin/Globulin Ratio Blood Type Antibody Screen BBK History Checked 07/10/18 07/11/18 07/11/18 21:14 05:30 06:11 WBC 14.2 H RBC 3.41 L Hgb 11.0 L Hct 32.2 L MCV 94.3 H MCH 32.1 H MCHC 34.0 RDW 12.9 Plt Count 348 MPV 8.3 Neut % (Auto) 73.8 Lymph % (Auto) 10.2 L [place] % (Auto) 10.3 H Eos % (Auto) 5.0 H Baso % (Auto) 0.7 Neut # (Auto) 10.5 H Lymph # (Auto) 1.4 [place] # (Auto) 1.5 H Eos # (Auto) 0.7 Baso # (Auto) 0.1 PT INR APTT Sodium Potassium Chloride Carbon Dioxide Anion Gap BUN Creatinine Est GFR ( Amer) Est GFR (Non-Af Amer) POC Glucose (mg/dL) 314 H 273 H Random Glucose Calcium Total Bilirubin AST ALT Alkaline Phosphatase Total Protein Albumin Globulin Albumin/Globulin Ratio Blood Type Antibody Screen BBK History Checked 07/11/18 07/11/18 07/11/18 11:11 15:50 21:13 WBC RBC Hgb Hct MCV MCH MCHC RDW Plt Count MPV Neut % (Auto) Lymph % (Auto) [place] % (Auto) Eos % (Auto) Baso % (Auto) Neut # (Auto) Lymph # (Auto) [place] # (Auto) Eos # (Auto) Baso # (Auto) PT INR APTT Sodium Potassium Chloride Carbon Dioxide Anion Gap BUN Creatinine Est GFR ( Amer) Est GFR (Non-Af Amer) POC Glucose (mg/dL) 314 H 291 H 209 H Random Glucose Calcium Total Bilirubin AST ALT Alkaline Phosphatase Total Protein Albumin Globulin Albumin/Globulin Ratio Blood Type Antibody Screen BBK History Checked 07/12/18 07/12/18 07/12/18 05:43 09:07 09:07 WBC 13.2 H RBC 3.39 L Hgb 10.8 L Hct 31.8 L MCV 93.8 MCH 31.8 H MCHC 33.9 RDW 13.0 Plt Count 438 H MPV 8.4 Neut % (Auto) 75.5 H Lymph % (Auto) 9.5 L [place] % (Auto) 9.9 Eos % (Auto) 4.5 H Baso % (Auto) 0.6 Neut # (Auto) 10.0 H Lymph # (Auto) 1.3 [place] # (Auto) 1.3 H Eos # (Auto) 0.6 Baso # (Auto) 0.1 PT 13.9 H INR 1.2 APTT 43.1 H Sodium Potassium Chloride Carbon Dioxide Anion Gap BUN Creatinine Est GFR ( Amer) Est GFR (Non-Af Amer) POC Glucose (mg/dL) 286 H Random Glucose Calcium Total Bilirubin AST ALT Alkaline Phosphatase Total Protein Albumin Globulin Albumin/Globulin Ratio Blood Type Antibody Screen BBK History Checked 07/12/18 07/12/18 07/12/18 09:07 10:00 11:06 WBC RBC Hgb Hct MCV MCH MCHC RDW Plt Count MPV Neut % (Auto) Lymph % (Auto) [place] % (Auto) Eos % (Auto) Baso % (Auto) Neut # (Auto) Lymph # (Auto) [place] # (Auto) Eos # (Auto) Baso # (Auto) PT INR APTT Sodium 133 Potassium 5.0 Chloride 94 L Carbon Dioxide 25 Anion Gap 19 BUN 40 H Creatinine 2.4 H Est GFR ( Amer) 35 Est GFR (Non-Af Amer) 29 POC Glucose (mg/dL) 317 H Random Glucose 307 H Calcium 9.0 Total Bilirubin 0.7 AST 89 H ALT 83 H Alkaline Phosphatase 233 H D Total Protein 7.2 Albumin 3.4 L Globulin 3.8 Albumin/Globulin Ratio 0.9 L Blood Type O POSITIVE Antibody Screen Negative BBK History Checked Patient has bt Microbiology 07/07/18 00:02 Blood-Venous Blood Culture - Preliminary NO GROWTH AFTER 4 DAYS 07/08/18 00:17 Blood-Venous Blood Culture - Preliminary NO GROWTH AFTER 4 DAYS 07/09/18 12:15 Blood-Venous Blood Culture - Preliminary NO GROWTH AFTER 48 HOURS 07/09/18 12:00 Blood-Venous Blood Culture - Preliminary NO GROWTH AFTER 48 HOURS 07/08/18 19:16 Toe Gram Stain - Final 07/08/18 19:16 Toe Wound Culture - Preliminary Beta Hemolytic Strep Group B Gram Positive Cocci 07/08/18 19:16 Urine,Clean Catch Urine Culture - Final No Growth (<1,000 CFU/ML) Assessment and Plan (1) Cellulitis of left foot Status: Acute (2) Leukocytosis Status: Acute - Assessment and Plan (Free Text) Assessment: A/P- 48 year old male with DM Ii admitetd with left foot fourth digit region with open lesion and surrounding cellulitis. low grade fever. leukocytosis slightly lower. HIGH ESR wound cx- Strep group B and MSSA MRI report-Possible Om of left fourth metatarsal head. blood cx- neg x 4 Plan advise to continue patient on IV nafcillin ( renal dose ) for MSSA foot infection.day #4 advise to also continue renal dose vanco q48 hours. check 2 more blood cx. awaiting surgical debridement of the left fourth toe necrotic region .
--- NOTE | 2018-07-12 11:02 | CP.PCM.PN ---
Subjective - Date & Time of Evaluation Date of Evaluation: 07/11/18 Objective - Vital Signs/Intake and Output Vital Signs (last 24 hours): Temp Pulse Resp BP Pulse Ox 97.8 F 97 H 20 142/92 H 91 L 07/12/18 08:30 07/12/18 09:49 07/12/18 08:30 07/12/18 09:49 07/12/18 08:30 - Medications Medications: Current Medications Acetaminophen (Tylenol 325mg Tab) 650 mg PO Q4 PRN PRN Reason: Fever >101.0 F Last Admin: 07/11/18 16:42 Dose: 650 mg Amlodipine Besylate (Norvasc) 10 mg PO DAILY [facility] Last Admin: 07/12/18 09:49 Dose: 10 mg Aspirin (Ecotrin) 81 mg PO DAILY [facility] Last Admin: 07/11/18 08:27 Dose: 81 mg Atorvastatin Calcium (Lipitor) 20 mg PO DAILY [facility] Last Admin: 07/12/18 09:35 Dose: Not Given Dextrose (Dextrose 50% Inj) 0 ml IV STAT PRN; Protocol PRN Reason: Hypoglycemia Protocol Dextrose (Glutose 15) 0 gm PO ONCE PRN; Protocol PRN Reason: Hypoglycemia Protocol Glipizide (Glucotrol Xl) 10 mg PO DAILY [facility] Last Admin: 07/12/18 09:35 Dose: Not Given Glucagon (Glucagen Diagnostic Kit) 0 mg IM STAT PRN; Protocol PRN Reason: Hypoglycemia Protocol Heparin Sodium (Porcine) (Heparin) 5,000 units SC Q8 [facility]; Protocol Last Admin: 07/11/18 16:43 Dose: 5,000 units Nafcillin Sodium 1 gm/ Sodium (Chloride) 100 mls @ 100 mls/hr IVPB Q8 [facility]; Protocol Last Admin: 07/12/18 08:29 Dose: 100 mls/hr Vancomycin HCl 1 gm/ Sodium (Chloride) 250 mls @ 166.667 mls/hr IVPB QOTHERDAY [facility]; Protocol Last Admin: 07/11/18 08:37 Dose: 166.667 mls/hr Sodium Chloride (Sodium Chloride 0.9%) 1,000 mls @ 80 mls/hr IV .[id number] [facility] Stop: 07/12/18 20:44 Last Admin: 07/12/18 09:35 Dose: Not Given Insulin Detemir (Levemir) 50 units SC HS [facility] Last Admin: 07/11/18 21:27 Dose: 50 u Insulin Human Lispro (Humalog) 10 units SC TIDAC [facility] Last Admin: 07/12/18 07:40 Dose: Not Given Insulin Human Lispro (Humalog) 0 units SC ACHS [facility]; Protocol Last Admin: 07/12/18 07:40 Dose: Not Given Lisinopril (Zestril) 40 mg PO DAILY [facility] Last Admin: 07/12/18 09:49 Dose: 40 mg Morphine Sulfate (Morphine) 2 mg IVP Q4 PRN PRN Reason: Pain, severe (8-10) Last Admin: 07/12/18 09:50 Dose: 2 mg Multivitamins/Minerals (Therapeutic-M Tab) 1 tab PO DAILY [facility] Last Admin: 07/12/18 09:35 Dose: Not Given Mupirocin (Bactroban Ointment) 1 applic TOP BID [facility] Last Admin: 07/12/18 09:35 Dose: Not Given Kxncy-9-Ackn Ethyl Esters (Lovaza) 1 gm PO DAILY [facility] Last Admin: 07/12/18 09:35 Dose: Not Given Pioglitazone HCl (Actos) 15 mg PO DAILY [facility] Last Admin: 07/12/18 09:34 Dose: Not Given Zolpidem Tartrate (Ambien) 5 mg PO HS PRN PRN Reason: Sleep Last Admin: 07/12/18 00:10 Dose: 5 mg - Labs Labs: 07/12/18 09:07 07/12/18 09:07 PT 13.9 Seconds (9.8-13.1) H 07/12/18 09:07 INR 1.2 07/12/18 09:07 APTT 43.1 Seconds (25.6-37.1) H 07/12/18 09:07 Assessment and Plan (1) Sepsis Status: Acute (2) Foot ulcer, left Status: Acute (3) Diabetes mellitus with hyperglycemia Status: Acute (4) CAD (coronary artery disease) Status: Acute (5) H/O coronary artery bypass surgery Status: Acute
--- NOTE | 2018-07-12 11:04 | CP.PCM.PN ---
Subjective - Date & Time of Evaluation Date of Evaluation: 07/12/18 Time of Evaluation: 10:05 - Subjective Subjective: Seen and examined at the bedside. Patient continues to spike fever, and last night temperature > 101. 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 Patient denies chest pain, shortness of breath, fever or chills. Patient was able to tolerate walking and climbing stairs before hospitalization. No recent echocardiogram. ID Input appreciated. Objective - Vital Signs/Intake and Output Vital Signs (last 24 hours): Temp Pulse Resp BP Pulse Ox 97.8 F 97 H 20 142/92 H 91 L 07/12/18 08:30 07/12/18 09:49 07/12/18 08:30 07/12/18 09:49 07/12/18 08:30 - Medications Medications: Current Medications Acetaminophen (Tylenol 325mg Tab) 650 mg PO Q4 PRN PRN Reason: Fever >101.0 F Last Admin: 07/11/18 16:42 Dose: 650 mg Amlodipine Besylate (Norvasc) 10 mg PO DAILY [facility] Last Admin: 07/12/18 09:49 Dose: 10 mg Aspirin (Ecotrin) 81 mg PO DAILY [facility] Last Admin: 07/11/18 08:27 Dose: 81 mg Atorvastatin Calcium (Lipitor) 20 mg PO DAILY [facility] Last Admin: 07/12/18 09:35 Dose: Not Given Dextrose (Dextrose 50% Inj) 0 ml IV STAT PRN; Protocol PRN Reason: Hypoglycemia Protocol Dextrose (Glutose 15) 0 gm PO ONCE PRN; Protocol PRN Reason: Hypoglycemia Protocol Glipizide (Glucotrol Xl) 10 mg PO DAILY [facility] Last Admin: 07/12/18 09:35 Dose: Not Given Glucagon (Glucagen Diagnostic Kit) 0 mg IM STAT PRN; Protocol PRN Reason: Hypoglycemia Protocol Heparin Sodium (Porcine) (Heparin) 5,000 units SC Q8 [facility]; Protocol Last Admin: 07/11/18 16:43 Dose: 5,000 units Nafcillin Sodium 1 gm/ Sodium (Chloride) 100 mls @ 100 mls/hr IVPB Q8 [facility]; Protocol Last Admin: 07/12/18 08:29 Dose: 100 mls/hr Vancomycin HCl 1 gm/ Sodium (Chloride) 250 mls @ 166.667 mls/hr IVPB QOTHERDAY [facility]; Protocol Last Admin: 07/11/18 08:37 Dose: 166.667 mls/hr Sodium Chloride (Sodium Chloride 0.9%) 1,000 mls @ 80 mls/hr IV .[id number] [facility] Stop: 07/12/18 20:44 Last Admin: 07/12/18 09:35 Dose: Not Given Insulin Detemir (Levemir) 50 units SC HS [facility] Last Admin: 07/11/18 21:27 Dose: 50 u Insulin Human Lispro (Humalog) 10 units SC TIDAC [facility] Last Admin: 07/12/18 07:40 Dose: Not Given Insulin Human Lispro (Humalog) 0 units SC ACHS [facility]; Protocol Last Admin: 07/12/18 07:40 Dose: Not Given Lisinopril (Zestril) 40 mg PO DAILY [facility] Last Admin: 07/12/18 09:49 Dose: 40 mg Morphine Sulfate (Morphine) 2 mg IVP Q4 PRN PRN Reason: Pain, severe (8-10) Last Admin: 07/12/18 09:50 Dose: 2 mg Multivitamins/Minerals (Therapeutic-M Tab) 1 tab PO DAILY [facility] Last Admin: 07/12/18 09:35 Dose: Not Given Mupirocin (Bactroban Ointment) 1 applic TOP BID [facility] Last Admin: 07/12/18 09:35 Dose: Not Given Iajru-2-Giuk Ethyl Esters (Lovaza) 1 gm PO DAILY [facility] Last Admin: 07/12/18 09:35 Dose: Not Given Pioglitazone HCl (Actos) 15 mg PO DAILY [facility] Last Admin: 07/12/18 09:34 Dose: Not Given Zolpidem Tartrate (Ambien) 5 mg PO HS PRN PRN Reason: Sleep Last Admin: 07/12/18 00:10 Dose: 5 mg - Labs Labs: 07/12/18 09:07 07/12/18 09:07 PT 13.9 Seconds (9.8-13.1) H 07/12/18 09:07 INR 1.2 07/12/18 09:07 APTT 43.1 Seconds (25.6-37.1) H 07/12/18 09:07 Assessment and Plan (1) Sepsis Status: Acute (2) Foot ulcer, left Status: Acute (3) Diabetes mellitus with hyperglycemia Status: Acute (4) CAD (coronary artery disease) Status: Acute (5) H/O coronary artery bypass surgery Status: Acute - Assessment and Plan (Free Text) Plan: More than 4 METs Equivalent and Low risk Surgery. 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
--- NOTE | 2018-07-12 12:28 | CP.PCM.PN ---
Subjective - Date & Time of Evaluation Date of Evaluation: 07/12/18 Time of Evaluation: 12:26 - Subjective Subjective: Podiatry progress note for Dr. Deleon 48 y/o male patient seen and evaluated at bedside this morning with Dr. Deleon. Patient seen to be resting comfortably and is aware he will likely be taken to the OR today for surgery. Reports mild pain to left foot that has not gotten better or worse. Denies n/v/sob/cp and has no other acute complaints at this time. Objective - Vital Signs/Intake and Output Vital Signs (last 24 hours): Temp Pulse Resp BP Pulse Ox 97.8 F 97 H 20 142/92 H 91 L 07/12/18 08:30 07/12/18 09:49 07/12/18 08:30 07/12/18 09:49 07/12/18 08:30 - Medications Medications: Current Medications Acetaminophen (Tylenol 325mg Tab) 650 mg PO Q4 PRN PRN Reason: Fever >101.0 F Last Admin: 07/11/18 16:42 Dose: 650 mg Amlodipine Besylate (Norvasc) 10 mg PO DAILY [facility] Last Admin: 07/12/18 09:49 Dose: 10 mg Aspirin (Ecotrin) 81 mg PO DAILY [facility] Last Admin: 07/11/18 08:27 Dose: 81 mg Atorvastatin Calcium (Lipitor) 20 mg PO DAILY [facility] Last Admin: 07/12/18 09:35 Dose: Not Given Dextrose (Dextrose 50% Inj) 0 ml IV STAT PRN; Protocol PRN Reason: Hypoglycemia Protocol Dextrose (Glutose 15) 0 gm PO ONCE PRN; Protocol PRN Reason: Hypoglycemia Protocol Glipizide (Glucotrol Xl) 10 mg PO DAILY [facility] Last Admin: 07/12/18 09:35 Dose: Not Given Glucagon (Glucagen Diagnostic Kit) 0 mg IM STAT PRN; Protocol PRN Reason: Hypoglycemia Protocol Heparin Sodium (Porcine) (Heparin) 5,000 units SC Q8 [facility]; Protocol Last Admin: 07/11/18 16:43 Dose: 5,000 units Nafcillin Sodium 1 gm/ Sodium (Chloride) 100 mls @ 100 mls/hr IVPB Q8 [facility]; Protocol Last Admin: 07/12/18 08:29 Dose: 100 mls/hr Vancomycin HCl 1 gm/ Sodium (Chloride) 250 mls @ 166.667 mls/hr IVPB QOTHERDAY [facility]; Protocol Last Admin: 07/11/18 08:37 Dose: 166.667 mls/hr Sodium Chloride (Sodium Chloride 0.9%) 1,000 mls @ 80 mls/hr IV .[id number] [facility] Stop: 07/12/18 20:44 Last Admin: 07/12/18 09:35 Dose: Not Given Insulin Detemir (Levemir) 50 units SC HS [facility] Last Admin: 07/11/18 21:27 Dose: 50 u Insulin Human Lispro (Humalog) 10 units SC TIDAC [facility] Last Admin: 07/12/18 07:40 Dose: Not Given Insulin Human Lispro (Humalog) 0 units SC ACHS [facility]; Protocol Lisinopril (Zestril) 40 mg PO DAILY [facility] Last Admin: 07/12/18 09:49 Dose: 40 mg Morphine Sulfate (Morphine) 2 mg IVP Q4 PRN PRN Reason: Pain, severe (8-10) Last Admin: 07/12/18 09:50 Dose: 2 mg Multivitamins/Minerals (Therapeutic-M Tab) 1 tab PO DAILY [facility] Last Admin: 07/12/18 09:35 Dose: Not Given Mupirocin (Bactroban Ointment) 1 applic TOP BID [facility] Last Admin: 07/12/18 09:35 Dose: Not Given Bmmph-1-Ojyz Ethyl Esters (Lovaza) 1 gm PO DAILY [facility] Last Admin: 07/12/18 09:35 Dose: Not Given Pioglitazone HCl (Actos) 15 mg PO DAILY [facility] Last Admin: 07/12/18 09:34 Dose: Not Given Zolpidem Tartrate (Ambien) 5 mg PO HS PRN PRN Reason: Sleep Last Admin: 07/12/18 00:10 Dose: 5 mg - Labs Labs: 07/12/18 09:07 07/12/18 09:07 PT 13.9 Seconds (9.8-13.1) H 07/12/18 09:07 INR 1.2 07/12/18 09:07 APTT 43.1 Seconds (25.6-37.1) H 07/12/18 09:07 - Constitutional Appears: Well, Non-toxic, No Acute Distress - Head Exam Head Exam: ATRAUMATIC, NORMOCEPHALIC - Extremities Exam Additional comments: LLE focused exam: Vascular: DP/PT 1/4, CFT < 3 seconds, TG warm to warm, no increased warmth appreciated to L 4th toe, mild +1 edema to 4th digit circumfrentially Ortho: Mild tenderness to palpation of plantar sulcus, HAV correction appreciated, left digit partial amputation Neuro: Gross sensaton intact, protective sensation diminished Derm: wound appreciated to plantar sulcus of 4th digit, interdigital maceration appreciated to 3rd and 4th interspaces, ecchymosis appreciated to 4th digit, no purulence, no probe to bone, no drainage, no malodor, no clinical signs of infection at this time. - Neurological Exam Neurological Exam: Alert, Awake, Oriented x3 - Psychiatric Exam Psychiatric exam: Normal Affect, Normal Mood Assessment and Plan - Assessment and Plan (Free Text) Assessment: 48 y/o with L foot wound to the 4th digit, plantarly, infected Plan: Patient seen and evaluated with Dr. Deleon Discussed patient in detail with Dr. Deleon Afebrile, positive leukocytosis WBC 13.2 L foot x-rays ordered; no evidence of OM, no soft tissue emphysema appreciated C/w IV abx; Nafcillin, vanco ID on board; appreciate recs Wound Cx from [facility] (taken 07/05): B hemolytic strep, Staph Aureus Left Foot MRI: osteomyelitis of left fourth metatarsal head Local wound care: wound cleansed with saline and dressed with betadine, DSD Patient scheduled for surgery today with Dr. Deleon at 1:30 PM Patietn cleared medically, however, requires cardiac clearance Dr. Gonzalez is aware, and ordered ECHO for patient Podiatry will continue to follow patient while in house
[2018-07-12] MEDS ORDERED: Lidocaine 2% Inj (20ml) ONE ×2 (12:52→15:14)
[2018-07-12] MEDS ORDERED: Bupivacaine HCl 0.25% PF (30 ml) Inj ONE ×2 (12:52→15:14)
[2018-07-12] MEDS ORDERED: Liquid Adhesive TOP ONE (12:52)
[2018-07-12 13:03] LABS: BANDS 1 % (0-2); EOSINOPHIL 3 % (0-7); LYMPHOCYTE 7 % (20-50); MONOCYTE 5 % (0-10); NEUTROPHIL 84 % (42-75); TOTAL CELLS COUNTED 100
[2018-07-12 13:04] LABS: HYPOCHROMIC SLIGHT; PLATELET CLUMPS PRESENT; PLATELET ESTIMATE INCREASED (NORMAL); TOXIC GRANULATION PRESENT
[2018-07-12] MEDS ORDERED: Sodium Chloride 0.9% 500 ML IV ONE (13:30)
[2018-07-12] MEDS ORDERED: Lidocaine 1% Inj (20ml) IJ ONE (15:12)
[2018-07-12] MEDS ORDERED: Bupivacaine 0.5% Inj(30mL) IJ ONE (15:12)
[2018-07-12] MEDS ORDERED: Lidocaine Hydrochloride 0 ML INJ ONE (15:14)
[2018-07-12] MEDS ORDERED: Midazolam 2 MG/2 ML VIAL ONE (15:18)
[2018-07-12] MEDS ORDERED: Propofol 10 mg/ml Inj (20 ML) ONE (15:18)
--- NOTE | 2018-07-12 16:17 | PCM.SURG1 ---
Surgeon's Initial Post Op Note - Surgeon's Notes Surgeon: Dr. Deleon, DPM Pottery Striper: Dr. Catrachita Sauceda, PGY1 Dr. Juan Brown PGY2 Type of Anesthesia: IV Sedation, Local Anesthesia Administered By: Dr. Guillory Pre-Operative Diagnosis: left foot 4th digit wound with abscess on plantar forefoot and osteomyelitis of fourth metatarsal head Operative Findings: see dictation. materials: 3-0 prolene, 1 inch packing. Injectibles: 20 cc of .25% marcaine plain and 2% lidocaine. Post-Operative Diagnosis: same Operation Performed: left foot incision and drainage and amputation of left fourth digit and fourth metatarsal head Specimen/Specimens Removed: deep tissue wound cultures. Pathology: Fourth digit and fourth metatarsal head Estimated Blood Loss: EBL {In ML}: 30 Blood Products Given: N/A Drains Used: No Drains Post-Op Condition: Good Date of Surgery/Procedure: 07/12/18 Time of Surgery/Procedure: 16:36
[2018-07-12] MEDS ORDERED: Silver Sulfadiazine 1% CREAM (50 gm) ONE (16:22)
[2018-07-12] MEDS ORDERED: Sodium Chloride 0.9% 1,000 ML IV ONE (16:30)
--- NOTE | 2018-07-12 21:14 | CARD ---
APPROVED REPORT Date of service: 07/12/2018 EXAM: Two-dimensional and M-mode echocardiogram with Doppler and color Doppler. Other Information Quality : GoodRhythm : NSR INDICATION CVA/TIA 2D DIMENSIONS IVSd1.06 (0.7-1.1cm)LVDd4.62 (3.9-5.9cm) LVOT Diameter2.73 (1.8-2.4cm)PWd0.98 (0.7-1.1cm) IVSs1.87 (0.8-1.2cm)LVDs2.36 (2.5-4.0cm) FS (%) 49.0 %PWs1.64 (0.8-1.2cm) M-Mode DIMENSIONS Left Atrium (MM)3.32 (2.5-4.0cm)IVSd1.06 (0.7-1.1cm) Aortic Root3.76 (2.2-3.7cm)LVDd6.29 (4.0-5.6cm) Aortic Cusp Exc.2.26 (1.5-2.0cm)PWd1.21 (0.7-1.1cm) IVSs1.65 cmFS (%) 33 % LVDs4.21 (2.0-3.8cm)PWs1.56 cm Aortic Valve AoV Peak Tzhlxjjx343.6cm/sAoV VTI22.0cmAO Peak GR.9mmHg LVOT Peak Fiqbrbkb01.7cm/sLVOT VTI14.18cmAO Mean GR.5mmHg MAURY (VMAX)1.90yb7IDB (VTI)1.62cm2 Mitral Valve MV E Bdrjzlpk82.2cm/sMV DECEL [id number] A Mmbitzfv00.8cm/s MV NRP53mxH/A ratio0.8MVA (PHT)4.11cm2 TDI Lateral E' Peak V10.84cm/sMedial E' Peak V8.72cm/sE/Lateral E'5.4 E/Medial E'6.7 LEFT VENTRICLE The left ventricle is normal size. There is normal left ventricular wall thickness. The left ventricular systolic function is normal. The estimated ejection fraction is 55-60% No regional wall motion abnormalities noted.. Transmitral Doppler flow pattern is Grade I-abnormal relaxation pattern. No left ventricle thrombus noted on this study. There is no ventricular septal defect visualized. There is no left ventricular aneurysm. There is no mass noted in the left ventricle. RIGHT VENTRICLE The right ventricle is normal size. There is normal right ventricular wall thickness. The right ventricular systolic function is normal. ATRIA The left atrium size is normal. The right atrium size is normal. The interatrial septum is likely intact with no evidence for an atrial septal defect. AORTIC VALVE The aortic valve is normal in structure. No aortic regurgitation is present. There is no aortic valvular stenosis. There is no aortic valvular vegetation. MITRAL VALVE The mitral valve is normal in structure. There is no evidence of mitral valve prolapse. There is no mitral valve stenosis. There is no mitral valve regurgitation noted. TRICUSPID VALVE The tricuspid valve is normal in structure. There is no tricuspid valve regurgitation noted. There is no tricuspid valve prolapse or vegetation. There is no tricuspid valve stenosis. PULMONIC VALVE The pulmonary valve is normal in structure. There is no pulmonic valvular regurgitation. There is no pulmonic valvular stenosis. GREAT VESSELS The aortic root is normal in size. The ascending aorta is normal in size. The pulmonary artery is normal. The IVC is normal in size and collapses >50% with inspiration. PERICARDIAL EFFUSION There is no pericardial effusion. There is no pleural effusion. <Conclusion> Technically difficult study The estimated ejection fraction is 55-60% Transmitral Doppler flow pattern is Grade I-abnormal relaxation pattern. The left atrium size is normal. The interatrial septum is likely intact with no evidence for an atrial septal defect. There is no tricuspid valve regurgitation noted. The IVC is normal in size and collapses >50% with inspiration.
[2018-07-12] MEDS: Insulin Detemir 100 Units/ml Inj SC SCH (22:08)
[2018-07-13] MEDS: Morphine 4 MG/ML VIAL IVP PRN ×5 (00:32→21:30)
[2018-07-13] MEDS ORDERED: Insulin Lispro (humaLOG) 100 Units/ml Inj SC ONE (00:41)
[2018-07-13] MEDS: Sodium Chloride 0.9% 1,000 ML IV SCH ×3 (06:13→20:05)
[2018-07-13] MEDS: Insulin Lispro (humaLOG) 100 Units/ml Inj SC SCH ×7 (06:57→22:31)
[2018-07-13] MEDS: Mupirocin 2% Oint 1GM UD TOP SCH ×2 (08:49→17:08)
[2018-07-13] MEDS: GlipiZIDE 10 mg SR Tab PO SCH (08:51)
[2018-07-13] MEDS: Omega-3-Acid Ethyl Esters 1 GM Cap PO SCH (08:52)
[2018-07-13] MEDS: Multivitamin With Minerals Tab PO SCH (08:55)
[2018-07-13] MEDS: Silver Sulfadiazine 1% Cream (20 gm) TOP SCH (08:57)
--- NOTE | 2018-07-13 09:44 | US ---
Date of service: 07/13/2018 PROCEDURE: Bilateral lower extremity venous duplex Doppler. HISTORY: rule out DVT COMPARISON: None available. TECHNIQUE: Bilateral common femoral, superficial femoral, popliteal and posterior tibial veins were evaluated. Flow was assessed with color Doppler, compressibility, assessment of phasic flow and augmentation response. FINDINGS: COMMON FEMORAL VEIN: Right CFV: Unremarkable. Left CFV: Unremarkable. SUPERFICIAL FEMORAL VEIN: Right SFV: Unremarkable. Left SFV: Unremarkable. POPLITEAL VEIN: Right Popliteal: Unremarkable. Left Popliteal: Unremarkable. POSTERIOR TIBIAL VEIN: Right PTV: Unremarkable. Left PTV: Unremarkable. OTHER FINDINGS: Mildly enlarged left inguinal lymph node which measures approximately 2.9 x 1.1 cm. IMPRESSION: No evidence of deep venous thrombosis. Mildly enlarged left inguinal lymph node
--- NOTE | 2018-07-13 10:05 | CP.PCM.PN ---
Subjective - Date & Time of Evaluation Date of Evaluation: 07/13/18 Time of Evaluation: 09:59 - Subjective Subjective: Podiatry progress note for Dr. Deleon, 48 y/o male patient seen and evaluated at bedside POD1 incision and drainage with amputation of the 4th digit + 4th metatarsal head. Patient seen to be resting comfortably and reports mild pain to left foot since the surgery. Patient states he was able to sleep through the night. Denies n/v/sob/cp and has no other acute complaints at this time. Objective - Vital Signs/Intake and Output Vital Signs (last 24 hours): Temp Pulse Resp BP Pulse Ox 98.5 F 92 H 19 145/94 H 93 L 07/13/18 07:06 07/13/18 08:56 07/12/18 23:41 07/13/18 08:56 07/12/18 23:41 - Medications Medications: Current Medications Acetaminophen (Tylenol 325mg Tab) 650 mg PO Q4 PRN PRN Reason: Fever >101.0 F Last Admin: 07/12/18 23:52 Dose: 650 mg Amlodipine Besylate (Norvasc) 10 mg PO DAILY [facility] Last Admin: 07/13/18 08:53 Dose: 10 mg Aspirin (Ecotrin) 81 mg PO DAILY [facility] Last Admin: 07/13/18 08:51 Dose: 81 mg Atorvastatin Calcium (Lipitor) 20 mg PO DAILY [facility] Last Admin: 07/13/18 08:52 Dose: 20 mg Dextrose (Dextrose 50% Inj) 0 ml IV STAT PRN; Protocol PRN Reason: Hypoglycemia Protocol Dextrose (Glutose 15) 0 gm PO ONCE PRN; Protocol PRN Reason: Hypoglycemia Protocol Glipizide (Glucotrol Xl) 10 mg PO DAILY [facility] Last Admin: 07/13/18 08:51 Dose: 10 mg Glucagon (Glucagen Diagnostic Kit) 0 mg IM STAT PRN; Protocol PRN Reason: Hypoglycemia Protocol Heparin Sodium (Porcine) (Heparin) 5,000 units SC Q8 [facility]; Protocol Last Admin: 07/13/18 08:51 Dose: 5,000 units Nafcillin Sodium 1 gm/ Sodium (Chloride) 100 mls @ 100 mls/hr IVPB Q8 [facility]; Protocol Last Admin: 07/13/18 09:00 Dose: 100 mls/hr Vancomycin HCl 1 gm/ Sodium (Chloride) 250 mls @ 166.667 mls/hr IVPB QOTHERDAY [facility]; Protocol Last Admin: 07/11/18 08:37 Dose: 166.667 mls/hr Sodium Chloride (Sodium Chloride 0.9%) 1,000 mls @ 75 mls/hr IV .[id number] [facility] Last Admin: 07/13/18 06:13 Dose: Not Given Insulin Detemir (Levemir) 50 units SC HS [facility] Last Admin: 07/12/18 22:08 Dose: 50 u Insulin Human Lispro (Humalog) 10 units SC TIDAC [facility] Last Admin: 07/13/18 08:58 Dose: 10 units Insulin Human Lispro (Humalog) 0 units SC ACHS [facility]; Protocol Last Admin: 07/13/18 06:57 Dose: 6 units Lisinopril (Zestril) 40 mg PO DAILY [facility] Last Admin: 07/13/18 08:56 Dose: 40 mg Morphine Sulfate (Morphine) 2 mg IVP Q4 PRN PRN Reason: Pain, severe (8-10) Last Admin: 07/13/18 06:32 Dose: 2 mg Multivitamins/Minerals (Therapeutic-M Tab) 1 tab PO DAILY [facility] Last Admin: 07/13/18 08:55 Dose: 1 tab Mupirocin (Bactroban Ointment) 1 applic TOP BID [facility] Last Admin: 07/13/18 08:49 Dose: 1 applic Jlsvp-8-Mkad Ethyl Esters (Lovaza) 1 gm PO DAILY [facility] Last Admin: 07/13/18 08:52 Dose: 1 gm Pioglitazone HCl (Actos) 15 mg PO DAILY [facility] Last Admin: 07/13/18 08:50 Dose: 15 mg Silver Sulfadiazine (Silvadene 1% 20 Gm) 0 ea TOP DAILY [facility] Last Admin: 07/13/18 08:57 Dose: Not Given Zolpidem Tartrate (Ambien) 5 mg PO HS PRN PRN Reason: Sleep Last Admin: 07/12/18 00:10 Dose: 5 mg - Labs Labs: 07/12/18 09:07 07/12/18 09:07 PT 13.9 Seconds (9.8-13.1) H 07/12/18 09:07 INR 1.2 07/12/18 09:07 APTT 43.1 Seconds (25.6-37.1) H 07/12/18 09:07 - Constitutional Appears: Well, Non-toxic, No Acute Distress - Head Exam Head Exam: ATRAUMATIC, NORMOCEPHALIC - Extremities Exam Additional comments: Left Lower Extremity Vascular: DP and PT 1/4, CFT < 3 seconds, TG warm to warm, minimal edema to the dorsum of the left foot Ortho: Mild tenderness on palpation to the surgical site, left 4th digit amputation site noted open at this time Neuro: Gross sensation intact, protective sensation diminished Derm: left 4th digit amputation noted with a plantar incision with packing intact, positive sero-sanguinous drainage noted, retention sutures intact and incision well coapted, no malodor, no signs of infection noted - Neurological Exam Neurological Exam: Alert, Awake, Oriented x3 - Psychiatric Exam Psychiatric exam: Normal Affect, Normal Mood Assessment and Plan - Assessment and Plan (Free Text) Assessment: 48 y/o male patient s/p left foot incision and drainage with amputation of fourth digit and metatarsal head; site packed with 1 inch packing and to be closed primarily at a later time Plan: Patient seen and evaluated at bedside Plan discussed with Dr. Deleon Chart, labs and vitals reviewed- pending labs from today, febrile overnight, afebrile at this time L foot x-rays ordered; no evidence of OM, no soft tissue emphysema appreciated C/w IV abx; Nafcillin, vanco ID on board; appreciate recs Wound Cx from [facility] (taken 07/05): B hemolytic strep, Staph Aureus Left Foot MRI: osteomyelitis of left fourth metatarsal head Left Foot X-rays post surgery- amputation of the 4th digit and 4th met head noted F/U OR Pathology and WCx Wound irrigated well, packing was advanced from plantar incision, silvadene was applied and wound dressed with 4X4, ABD, Kerlix Podiatry will continue to follow patient while in house
[2018-07-13 10:08] LABS: CALCIUM 9.3 mg/dL (8.4-10.2)
[2018-07-13 10:18] LABS: HEMOGLOBIN 10.8 g/dL (12.0-18.0); MEAN CELL VOLUME 95.8 fl (80.0-94.0); MEAN CORPUSCULAR HEMOGLOBIN 31.7 pg (27.0-31.0); MEAN CORPUSCULAR HGB CONC 33.1 g/dL (33.0-37.0); RBC 3.4 Mil/uL (4.40-5.90); RED CELL DISTRIBUTION WIDTH 12.8 % (11.5-14.5); WHITE BLOOD COUNT 14.1 K/uL (4.8-10.8)
[2018-07-13] MEDS ORDERED: Sod Polystyrene Sulf 15 gm/60 ml Susp PO ONE (10:25)
--- NOTE | 2018-07-13 10:57 | RAD ---
Date of service: 07/12/2018 PROCEDURE: Left Foot Radiographs. HISTORY: s/p left foot surgery COMPARISON: Comparison made with prior radiographs left foot dated 07/08/2018 FINDINGS: BONES: Interval amputation at the 4th digit and distal 4th metatarsal with expected postoperative changes in the distal subcutaneous tissues. Apparent postoperative changes of osteotomy distal 1st metatarsal. Minimal hallux valgus deformity and mild DJD 1st MTP joint. Degenerative changes 1st MTP joint JOINTS: Minimal hallux valgus deformity and mild DJD 1st MTP joint. Degenerative changes 1st MTP joint. There also degenerative changes of the tibiotalar articulation. SOFT TISSUES: Normal. OTHER FINDINGS: None. IMPRESSION: Interval on amputation 4th digit and distal aspect 4th metatarsal with expected postoperative changes in the distal subcutaneous tissues. See above discussion for additional details and findings.
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
[2018-07-13] MEDS: Insulin Detemir 100 Units/ml Inj SC SCH (22:32)
[2018-07-14] MEDS ORDERED: Insulin Lispro (humaLOG) 100 Units/ml Inj SC ONE (01:59)
[2018-07-14] MEDS: Morphine 4 MG/ML VIAL IVP PRN (06:31)
[2018-07-14] MEDS: Sodium Chloride 0.9% 1,000 ML IV SCH ×3 (06:34→22:38)
[2018-07-14 06:50] LABS: HEMOGLOBIN 11.2 g/dL (12.0-18.0); MEAN CELL VOLUME 95.3 fl (80.0-94.0); MEAN CORPUSCULAR HEMOGLOBIN 32.1 pg (27.0-31.0); MEAN CORPUSCULAR HGB CONC 33.6 g/dL (33.0-37.0); RBC 3.49 Mil/uL (4.40-5.90); RED CELL DISTRIBUTION WIDTH 12.9 % (11.5-14.5)
[2018-07-14 07:02] LABS: ALB/GLOB RATIO 0.9 (1.0-2.1); ALBUMIN 3.4 g/dL (3.5-5.0); CALCIUM 9.1 mg/dL (8.4-10.2)
[2018-07-14] MEDS: Multivitamin With Minerals Tab PO SCH (08:27)
[2018-07-14] MEDS: GlipiZIDE 10 mg SR Tab PO SCH (08:27)
[2018-07-14] MEDS: Insulin Lispro (humaLOG) 100 Units/ml Inj SC SCH ×7 (08:29→21:40)
[2018-07-14] MEDS: Omega-3-Acid Ethyl Esters 1 GM Cap PO SCH (08:30)
[2018-07-14] MEDS ORDERED: Oxycodone/Acetaminophen 5/325 mg Tab PO PRN ×3 (09:31→11:18)
[2018-07-14] MEDS: Mupirocin 2% Oint 1GM UD TOP SCH ×2 (10:04→18:11)
[2018-07-14] MEDS: Oxycodone/Acetaminophen 5/325 mg Tab PO SCH ×2 (10:07→10:25)
[2018-07-14] MEDS: Silver Sulfadiazine 1% Cream (20 gm) TOP SCH (10:12)
[2018-07-14] MEDS: Pantoprazole 40 mg EC Tab PO SCH (10:18)
--- NOTE | 2018-07-14 11:11 | CP.PCM.PN ---
Subjective - Date & Time of Evaluation Date of Evaluation: 07/14/18 Time of Evaluation: 11:11 - Subjective Subjective: Id Note- Patient seen and examined today. pt. has been afebrile today. He does c/o pain at surgical site. Objective - Vital Signs/Intake and Output Vital Signs (last 24 hours): Temp Pulse Resp BP Pulse Ox 97.7 F 85 20 126/85 97 07/14/18 08:20 07/14/18 08:28 07/14/18 08:20 07/14/18 08:28 07/14/18 08:20 - Medications Medications: Current Medications Acetaminophen (Tylenol 325mg Tab) 650 mg PO Q4 PRN PRN Reason: Fever >101.0 F Last Admin: 07/12/18 23:52 Dose: 650 mg Amlodipine Besylate (Norvasc) 10 mg PO DAILY [facility] Last Admin: 07/14/18 08:28 Dose: 10 mg Aspirin (Ecotrin) 81 mg PO DAILY [facility] Last Admin: 07/14/18 08:27 Dose: 81 mg Atorvastatin Calcium (Lipitor) 20 mg PO DAILY [facility] Last Admin: 07/14/18 08:28 Dose: 20 mg Dextrose (Dextrose 50% Inj) 0 ml IV STAT PRN; Protocol PRN Reason: Hypoglycemia Protocol Dextrose (Glutose 15) 0 gm PO ONCE PRN; Protocol PRN Reason: Hypoglycemia Protocol Glipizide (Glucotrol Xl) 10 mg PO DAILY [facility] Last Admin: 07/14/18 08:27 Dose: 10 mg Glucagon (Glucagen Diagnostic Kit) 0 mg IM STAT PRN; Protocol PRN Reason: Hypoglycemia Protocol Heparin Sodium (Porcine) (Heparin) 5,000 units SC Q8 [facility]; Protocol Last Admin: 07/14/18 08:29 Dose: 5,000 units Nafcillin Sodium 1 gm/ Sodium (Chloride) 100 mls @ 100 mls/hr IVPB Q8 [facility]; Protocol Last Admin: 07/14/18 08:30 Dose: 100 mls/hr Vancomycin HCl 1 gm/ Sodium (Chloride) 250 mls @ 166.667 mls/hr IVPB QOTHERDAY [facility]; Protocol Last Admin: 07/13/18 11:10 Dose: 166.667 mls/hr Sodium Chloride (Sodium Chloride 0.9%) 1,000 mls @ 75 mls/hr IV .[id number] [facility] Last Admin: 07/14/18 10:17 Dose: Not Given Insulin Detemir (Levemir) 50 units SC HS [facility] Last Admin: 07/13/18 22:32 Dose: 50 u Insulin Human Lispro (Humalog) 10 units SC TIDAC [facility] Last Admin: 07/14/18 08:29 Dose: 10 units Insulin Human Lispro (Humalog) 0 units SC ACHS [facility]; Protocol Last Admin: 07/14/18 08:30 Dose: 4 units Lisinopril (Zestril) 40 mg PO DAILY [facility] Last Admin: 07/14/18 08:28 Dose: 40 mg Morphine Sulfate (Morphine) 2 mg IVP Q4 PRN PRN Reason: Pain, severe (8-10) Last Admin: 07/14/18 06:31 Dose: 2 mg Multivitamins/Minerals (Therapeutic-M Tab) 1 tab PO DAILY [facility] Last Admin: 07/14/18 08:27 Dose: 1 tab Mupirocin (Bactroban Ointment) 1 applic TOP BID [facility] Last Admin: 07/14/18 10:04 Dose: Not Given [id number] Ethyl Esters (Lovaza) 1 gm PO DAILY [facility] Last Admin: 07/14/18 08:30 Dose: 1 gm Oxycodone/Acetaminophen (Percocet 5/325 Mg Tab) 1 tab PO Q6 [facility] Stop: 07/17/18 10:01 Last Admin: 07/14/18 10:25 Dose: 1 tab Pantoprazole Sodium (Protonix Ec Tab) 40 mg PO DAILY [facility] Last Admin: 07/14/18 10:18 Dose: 40 mg Pioglitazone HCl (Actos) 15 mg PO DAILY [facility] Last Admin: 07/14/18 08:27 Dose: 15 mg Silver Sulfadiazine (Silvadene 1% 20 Gm) 0 ea TOP DAILY [facility] Last Admin: 07/14/18 10:12 Dose: Not Given Zolpidem Tartrate (Ambien) 5 mg PO HS PRN PRN Reason: Sleep Last Admin: 07/13/18 22:33 Dose: 5 mg - Labs Labs: 07/14/18 06:05 07/14/18 06:05 PT 13.9 Seconds (9.8-13.1) H 07/12/18 09:07 INR 1.2 07/12/18 09:07 APTT 43.1 Seconds (25.6-37.1) H 07/12/18 09:07 - Additional Findings Additional findings: - Constitutional Appears: No Acute Distress - Head Exam Head Exam: ATRAUMATIC - Eye Exam Eye Exam: EOMI, PERRL - ENT Exam ENT Exam: Normal Oropharynx - Neck Exam Neck exam: Positive for: Full Rom - Respiratory Exam Respiratory Exam: Clear to Auscultation Bilateral, NORMAL BREATHING PATTERN - Cardiovascular Exam Cardiovascular Exam: RRR, +S1, +S2 - GI/Abdominal Exam GI & Abdominal Exam: Normal Bowel Sounds, Soft Additional comments: NT, ND - Back Exam Additional comments: left foot wrapped in gauze , no discharge on dressing - Neurological Exam Neurological exam: Alert, Oriented x 3 Laboratory Results - last 72 hr 07/11/18 07/11/18 07/12/18 15:50 21:13 05:43 WBC RBC Hgb Hct MCV MCH MCHC RDW Plt Count MPV Neut % (Auto) Lymph % (Auto) Sierra % (Auto) Eos % (Auto) Baso % (Auto) Neut # (Auto) Lymph # (Auto) Sierra # (Auto) Eos # (Auto) Baso # (Auto) Neutrophils % (Manual) Band Neutrophils % Lymphocytes % (Manual) Monocytes % (Manual) Eosinophils % (Manual) Toxic Granulation Platelet Estimate Plt Clumps, EDTA Hypochromasia (manual) PT INR APTT Sodium Potassium Chloride Carbon Dioxide Anion Gap BUN Creatinine Est GFR ( Amer) Est GFR (Non-Af Amer) POC Glucose (mg/dL) 291 H 209 H 286 H Random Glucose Calcium Phosphorus Magnesium Total Bilirubin AST ALT Alkaline Phosphatase Total Protein Albumin Globulin Albumin/Globulin Ratio Blood Type Antibody Screen BBK History Checked 07/12/18 07/12/18 07/12/18 09:07 09:07 09:07 WBC 13.2 H RBC 3.39 L Hgb 10.8 L Hct 31.8 L MCV 93.8 MCH 31.8 H MCHC 33.9 RDW 13.0 Plt Count 438 H MPV 8.4 Neut % (Auto) 75.5 H Lymph % (Auto) 9.5 L Sierra % (Auto) 9.9 Eos % (Auto) 4.5 H Baso % (Auto) 0.6 Neut # (Auto) 10.0 H Lymph # (Auto) 1.3 Sierra # (Auto) 1.3 H Eos # (Auto) 0.6 Baso # (Auto) 0.1 Neutrophils % (Manual) 84 H Band Neutrophils % 1 Lymphocytes % (Manual) 7 L Monocytes % (Manual) 5 Eosinophils % (Manual) 3 Toxic Granulation Present Platelet Estimate Increased H Plt Clumps, EDTA Present Hypochromasia (manual) Slight PT 13.9 H INR 1.2 APTT 43.1 H Sodium 133 Potassium 5.0 Chloride 94 L Carbon Dioxide 25 Anion Gap 19 BUN 40 H Creatinine 2.4 H Est GFR ( Amer) 35 Est GFR (Non-Af Amer) 29 POC Glucose (mg/dL) Random Glucose 307 H Calcium 9.0 Phosphorus Magnesium Total Bilirubin 0.7 AST 89 H ALT 83 H Alkaline Phosphatase 233 H D Total Protein 7.2 Albumin 3.4 L Globulin 3.8 Albumin/Globulin Ratio 0.9 L Blood Type Antibody Screen BBK History Checked 07/12/18 07/12/18 07/12/18 10:00 11:06 16:37 WBC RBC Hgb Hct MCV MCH MCHC RDW Plt Count MPV Neut % (Auto) Lymph % (Auto) Sierra % (Auto) Eos % (Auto) Baso % (Auto) Neut # (Auto) Lymph # (Auto) Sierra # (Auto) Eos # (Auto) Baso # (Auto) Neutrophils % (Manual) Band Neutrophils % Lymphocytes % (Manual) Monocytes % (Manual) Eosinophils % (Manual) Toxic Granulation Platelet Estimate Plt Clumps, EDTA Hypochromasia (manual) PT INR APTT Sodium Potassium Chloride Carbon Dioxide Anion Gap BUN Creatinine Est GFR ( Amer) Est GFR (Non-Af Amer) POC Glucose (mg/dL) 317 H 254 H Random Glucose Calcium Phosphorus Magnesium Total Bilirubin AST ALT Alkaline Phosphatase Total Protein Albumin Globulin Albumin/Globulin Ratio Blood Type O POSITIVE Antibody Screen Negative BBK History Checked Patient has bt 07/12/18 07/12/18 07/13/18 21:54 21:56 00:35 WBC RBC Hgb Hct MCV MCH MCHC RDW Plt Count MPV Neut % (Auto) Lymph % (Auto) Sierra % (Auto) Eos % (Auto) Baso % (Auto) Neut # (Auto) Lymph # (Auto) Sierra # (Auto) Eos # (Auto) Baso # (Auto) Neutrophils % (Manual) Band Neutrophils % Lymphocytes % (Manual) Monocytes % (Manual) Eosinophils % (Manual) Toxic Granulation Platelet Estimate Plt Clumps, EDTA Hypochromasia (manual) PT INR APTT Sodium Potassium Chloride Carbon Dioxide Anion Gap BUN Creatinine Est GFR ( Amer) Est GFR (Non-Af Amer) POC Glucose (mg/dL) 498 H* > 500 H* 389 H Random Glucose Calcium Phosphorus Magnesium Total Bilirubin AST ALT Alkaline Phosphatase Total Protein Albumin Globulin Albumin/Globulin Ratio Blood Type Antibody Screen BBK History Checked 07/13/18 07/13/18 07/13/18 05:51 09:52 09:52 WBC 14.1 H RBC 3.40 L Hgb 10.8 L Hct 32.6 L MCV 95.8 H D MCH 31.7 H MCHC 33.1 RDW 12.8 Plt Count 427 H MPV Neut % (Auto) Lymph % (Auto) Sierra % (Auto) Eos % (Auto) Baso % (Auto) Neut # (Auto) Lymph # (Auto) Sierra # (Auto) Eos # (Auto) Baso # (Auto) Neutrophils % (Manual) Band Neutrophils % Lymphocytes % (Manual) Monocytes % (Manual) Eosinophils % (Manual) Toxic Granulation Platelet Estimate Plt Clumps, EDTA Hypochromasia (manual) PT INR APTT Sodium 134 Potassium 5.2 H Chloride 94 L Carbon Dioxide 29 Anion Gap 16 BUN 37 H Creatinine 2.2 H Est GFR ( Amer) 39 Est GFR (Non-Af Amer) 32 POC Glucose (mg/dL) 302 H Random Glucose 295 H Calcium 9.3 Phosphorus Magnesium Total Bilirubin AST ALT Alkaline Phosphatase Total Protein Albumin Globulin Albumin/Globulin Ratio Blood Type Antibody Screen BBK History Checked 07/13/18 07/13/18 07/13/18 11:13 16:10 22:05 WBC RBC Hgb Hct MCV MCH MCHC RDW Plt Count MPV Neut % (Auto) Lymph % (Auto) Sierra % (Auto) Eos % (Auto) Baso % (Auto) Neut # (Auto) Lymph # (Auto) Sierra # (Auto) Eos # (Auto) Baso # (Auto) Neutrophils % (Manual) Band Neutrophils % Lymphocytes % (Manual) Monocytes % (Manual) Eosinophils % (Manual) Toxic Granulation Platelet Estimate Plt Clumps, EDTA Hypochromasia (manual) PT INR APTT Sodium Potassium Chloride Carbon Dioxide Anion Gap BUN Creatinine Est GFR ( Amer) Est GFR (Non-Af Amer) POC Glucose (mg/dL) 313 H 243 H 347 H Random Glucose Calcium Phosphorus Magnesium Total Bilirubin AST ALT Alkaline Phosphatase Total Protein Albumin Globulin Albumin/Globulin Ratio Blood Type Antibody Screen BBK History Checked 07/14/18 07/14/18 07/14/18 01:52 06:05 06:05 WBC 13.0 H RBC 3.49 L Hgb 11.2 L Hct 33.2 L MCV 95.3 H MCH 32.1 H MCHC 33.6 RDW 12.9 Plt Count 466 H MPV Neut % (Auto) Lymph % (Auto) Sierra % (Auto) Eos % (Auto) Baso % (Auto) Neut # (Auto) Lymph # (Auto) Sierra # (Auto) Eos # (Auto) Baso # (Auto) Neutrophils % (Manual) Band Neutrophils % Lymphocytes % (Manual) Monocytes % (Manual) Eosinophils % (Manual) Toxic Granulation Platelet Estimate Plt Clumps, EDTA Hypochromasia (manual) PT INR APTT Sodium 133 Potassium 4.6 Chloride 94 L Carbon Dioxide 30 Anion Gap 14 BUN 35 H Creatinine 2.2 H Est GFR ( Amer) 39 Est GFR (Non-Af Amer) 32 POC Glucose (mg/dL) 373 H Random Glucose 307 H Calcium 9.1 Phosphorus 3.9 Magnesium 1.9 Total Bilirubin 0.4 AST 101 H ALT 94 H Alkaline Phosphatase 237 H Total Protein 7.3 Albumin 3.4 L Globulin 3.9 Albumin/Globulin Ratio 0.9 L Blood Type Antibody Screen BBK History Checked 07/14/18 07/14/18 06:08 11:32 WBC RBC Hgb Hct MCV MCH MCHC RDW Plt Count MPV Neut % (Auto) Lymph % (Auto) Sierra % (Auto) Eos % (Auto) Baso % (Auto) Neut # (Auto) Lymph # (Auto) Sierra # (Auto) Eos # (Auto) Baso # (Auto) Neutrophils % (Manual) Band Neutrophils % Lymphocytes % (Manual) Monocytes % (Manual) Eosinophils % (Manual) Toxic Granulation Platelet Estimate Plt Clumps, EDTA Hypochromasia (manual) PT INR APTT Sodium Potassium Chloride Carbon Dioxide Anion Gap BUN Creatinine Est GFR ( Amer) Est GFR (Non-Af Amer) POC Glucose (mg/dL) 272 H 377 H Random Glucose Calcium Phosphorus Magnesium Total Bilirubin AST ALT Alkaline Phosphatase Total Protein Albumin Globulin Albumin/Globulin Ratio Blood Type Antibody Screen BBK History Checked Microbiology 07/09/18 12:15 Blood-Venous Blood Culture - Final NO GROWTH AFTER 5 DAYS 07/09/18 12:15 Blood-Venous Gram Stain - Final TEST NOT PERFORMED 07/09/18 12:00 Blood-Venous Blood Culture - Final NO GROWTH AFTER 5 DAYS 07/09/18 12:00 Blood-Venous Gram Stain - Final TEST NOT PERFORMED 07/12/18 05:00 Abscess - Foot-Left Gram Stain - Final 07/12/18 05:00 Abscess - Foot-Left Wound Culture - Preliminary NO GROWTH AFTER 24 HOURS 07/12/18 05:00 Abscess - Foot-Left Gram Stain - Final 07/12/18 05:00 Abscess - Foot-Left Wound Culture - Preliminary NO GROWTH AFTER 24 HOURS 07/08/18 19:16 Toe Gram Stain - Final 07/08/18 19:16 Toe Wound Culture - Final Beta Hemolytic Strep Group B Staphylococcus Aureus 07/07/18 00:02 Blood-Venous Blood Culture - Final NO GROWTH AFTER 5 DAYS 07/07/18 00:02 Blood-Venous Gram Stain - Final TEST NOT PERFORMED 07/08/18 00:17 Blood-Venous Blood Culture - Final NO GROWTH AFTER 5 DAYS 07/08/18 00:17 Blood-Venous Gram Stain - Final TEST NOT PERFORMED 07/08/18 19:16 Urine,Clean Catch Urine Culture - Final No Growth (<1,000 CFU/ML) Accession No. : [id number] Patient Name / ID : IVÁN PETERSON / [id number] Exam Date : 07/12/2018 16:56:52 ( Approved ) Study Comment : Sex / Age : M / 48Y Creator : Romulo Coker MD Dictator : Romulo Coker MD Manager Of Global : Motor Pool Clerk : Romulo Coker MD Approver2 : Report Date : 07/13/2018 10:51:22 My Comment : Date of service: 07/12/2018 PROCEDURE: Left Foot Radiographs. HISTORY: s/p left foot surgery COMPARISON: Comparison made with prior radiographs left foot dated 07/08/2018 FINDINGS: BONES: Interval amputation at the 4th digit and distal 4th metatarsal with expected postoperative changes in the distal subcutaneous tissues. Apparent postoperative changes of osteotomy distal 1st metatarsal. Minimal hallux valgus deformity and mild DJD 1st MTP joint. Degenerative changes 1st MTP joint JOINTS: Minimal hallux valgus deformity and mild DJD 1st MTP joint. Degenerative changes 1st MTP joint. There also degenerative changes of the tibiotalar articulation. SOFT TISSUES: Normal. OTHER FINDINGS: None. IMPRESSION: Interval on amputation 4th digit and distal aspect 4th metatarsal with expected postoperative changes in the distal subcutaneous tissues. See above discussion for additional details and findin Assessment and Plan (1) Cellulitis of left foot Status: Acute (2) Leukocytosis Status: Acute - Assessment and Plan (Free Text) Assessment: 48 year old male with DM II was admitted with left foot fourth digit region wit h open lesion and surrounding cellulitis. found to have Om of left fourth toe POD2 incision and drainage with amputation of the 4th digit + 4th metatarsal head. afebrile past 24 hours. leukocytosis decreasing. HIGH ESR wound cx- Strep group B and MSSA MRI report-Possible Om of left fourth metatarsal head. blood cx- neg x 4 Plan advise to continue patient on IV nafcillin ( renal dose ) for MSSA foot infection.day #6 advise to also continue renal dose vanco q48 hours. keep vanco trough <15. await Or bone biopsy and bone cx report.
[2018-07-14] MEDS ORDERED: HYDROmorphone 1 mg/ml ISec IVP PRN (11:44)
[2018-07-14] MEDS ORDERED: oxyCODONE 5 mg Immediate Release Tab PO SCH (13:00)
--- NOTE | 2018-07-14 13:25 | CP.PCM.PN ---
Subjective - Date & Time of Evaluation Date of Evaluation: 07/14/18 Time of Evaluation: 13:24 - Subjective Subjective: Podiatry progress note for Dr. Deleon, 48 y/o male patient seen and evaluated at bedside POD2 incision and drainage with amputation of the 4th digit + 4th metatarsal head. Patient seen to be resting comfortably and reports mild pain to left foot since the surgery. Patient states he was able to sleep through the night. Denies n/v/sob/cp and has no other acute complaints at this time. Objective - Vital Signs/Intake and Output Vital Signs (last 24 hours): Temp Pulse Resp BP Pulse Ox 97.7 F 85 20 126/85 97 07/14/18 08:20 07/14/18 08:28 07/14/18 08:20 07/14/18 08:28 07/14/18 08:20 - Medications Medications: Current Medications Acetaminophen (Tylenol 325mg Tab) 650 mg PO Q4 PRN PRN Reason: Fever >101.0 F Last Admin: 07/12/18 23:52 Dose: 650 mg Amlodipine Besylate (Norvasc) 10 mg PO DAILY [facility] Last Admin: 07/14/18 08:28 Dose: 10 mg Aspirin (Ecotrin) 81 mg PO DAILY [facility] Last Admin: 07/14/18 08:27 Dose: 81 mg Atorvastatin Calcium (Lipitor) 20 mg PO DAILY [facility] Last Admin: 07/14/18 08:28 Dose: 20 mg Dextrose (Dextrose 50% Inj) 0 ml IV STAT PRN; Protocol PRN Reason: Hypoglycemia Protocol Dextrose (Glutose 15) 0 gm PO ONCE PRN; Protocol PRN Reason: Hypoglycemia Protocol Glipizide (Glucotrol Xl) 10 mg PO DAILY [facility] Last Admin: 07/14/18 08:27 Dose: 10 mg Glucagon (Glucagen Diagnostic Kit) 0 mg IM STAT PRN; Protocol PRN Reason: Hypoglycemia Protocol Heparin Sodium (Porcine) (Heparin) 5,000 units SC Q8 [facility]; Protocol Last Admin: 07/14/18 08:29 Dose: 5,000 units Hydromorphone HCl (Dilaudid) 1 mg IVP Q4 PRN PRN Reason: Pain, severe (8-10) Nafcillin Sodium 1 gm/ Sodium (Chloride) 100 mls @ 100 mls/hr IVPB Q8 [facility]; Protocol Last Admin: 07/14/18 08:30 Dose: 100 mls/hr Vancomycin HCl 1 gm/ Sodium (Chloride) 250 mls @ 166.667 mls/hr IVPB QOTHERDAY [facility]; Protocol Last Admin: 07/13/18 11:10 Dose: 166.667 mls/hr Sodium Chloride (Sodium Chloride 0.9%) 1,000 mls @ 75 mls/hr IV .[id number] [facility] Last Admin: 07/14/18 10:17 Dose: Not Given Insulin Detemir (Levemir) 50 units SC HS [facility] Last Admin: 07/13/18 22:32 Dose: 50 u Insulin Human Lispro (Humalog) 10 units SC TIDAC [facility] Last Admin: 07/14/18 08:29 Dose: 10 units Insulin Human Lispro (Humalog) 0 units SC ACHS [facility]; Protocol Last Admin: 07/14/18 08:30 Dose: 4 units Lisinopril (Zestril) 40 mg PO DAILY [facility] Last Admin: 07/14/18 08:28 Dose: 40 mg Morphine Sulfate (Morphine) 2 mg IVP Q4 PRN PRN Reason: Pain, severe (8-10) Last Admin: 07/14/18 06:31 Dose: 2 mg Multivitamins/Minerals (Therapeutic-M Tab) 1 tab PO DAILY [facility] Last Admin: 07/14/18 08:27 Dose: 1 tab Mupirocin (Bactroban Ointment) 1 applic TOP BID [facility] Last Admin: 07/14/18 10:04 Dose: Not Given Cvdoz-1-Vbhu Ethyl Esters (Lovaza) 1 gm PO DAILY [facility] Last Admin: 07/14/18 08:30 Dose: 1 gm Oxycodone HCl (Oxycodone Immediate Release Tab) 5 mg PO Q4 [facility] Pantoprazole Sodium (Protonix Ec Tab) 40 mg PO DAILY [facility] Last Admin: 07/14/18 10:18 Dose: 40 mg Pioglitazone HCl (Actos) 15 mg PO DAILY [facility] Last Admin: 07/14/18 08:27 Dose: 15 mg Silver Sulfadiazine (Silvadene 1% 20 Gm) 0 ea TOP DAILY [facility] Last Admin: 07/14/18 10:12 Dose: Not Given Zolpidem Tartrate (Ambien) 5 mg PO HS PRN PRN Reason: Sleep Last Admin: 07/13/18 22:33 Dose: 5 mg - Labs Labs: 07/14/18 06:05 07/14/18 06:05 PT 13.9 Seconds (9.8-13.1) H 07/12/18 09:07 INR 1.2 07/12/18 09:07 APTT 43.1 Seconds (25.6-37.1) H 07/12/18 09:07 - Constitutional Appears: Well, Non-toxic, No Acute Distress - Head Exam Head Exam: ATRAUMATIC, NORMOCEPHALIC - Extremities Exam Additional comments: Left Lower Extremity Vascular: DP and PT 1/4, CFT < 3 seconds, TG warm to warm, minimal edema to the dorsum of the left foot Ortho: Mild tenderness on palpation to the surgical site, left 4th digit amputation site noted open at this time Neuro: Gross sensation intact, protective sensation diminished Derm: left 4th digit amputation noted with a plantar incision with packing intact, positive sero-sanguinous drainage noted, retention sutures intact and incision well coapted, no malodor, no signs of infection noted - Neurological Exam Neurological Exam: Alert, Awake, Oriented x3 - Psychiatric Exam Psychiatric exam: Normal Affect, Normal Mood Assessment and Plan - Assessment and Plan (Free Text) Assessment: 48 y/o male patient s/p left foot incision and drainage with amputation of fourth digit and metatarsal head; site packed with 1 inch packing and to be closed primarily at a later time Plan: Patient seen and evaluated at bedside Plan discussed with Dr. Deleon Chart, labs and vitals reviewed- pending labs from today, febrile overnight, afebrile at this time L foot x-rays ordered; no evidence of OM, no soft tissue emphysema appreciated C/w IV abx; Nafcillin, vanco ID on board; appreciate recs Wound Cx from [facility] (taken 07/05): B hemolytic strep, Staph Aureus Left Foot MRI: osteomyelitis of left fourth metatarsal head Left Foot X-rays post surgery- amputation of the 4th digit and 4th met head noted F/U OR Pathology and WCx Wound irrigated well, packing was advanced from plantar incision, silvadene was applied and wound dressed with 4X4, ABD, Kerlix Podiatry will continue to follow patient while in house
--- NOTE | 2018-07-14 15:24 | CP.PCM.PN ---
Subjective - Date & Time of Evaluation Date of Evaluation: 07/14/18 Time of Evaluation: 08:00 - Subjective Subjective: Pt seen and examined at bedside. Pt has no new complaints Objective - Vital Signs/Intake and Output Vital Signs (last 24 hours): Temp Pulse Resp BP Pulse Ox 97.7 F 85 20 126/85 97 07/14/18 08:20 07/14/18 08:28 07/14/18 08:20 07/14/18 08:28 07/14/18 08:20 - Medications Medications: Current Medications Acetaminophen (Tylenol 325mg Tab) 650 mg PO Q4 PRN PRN Reason: Fever >101.0 F Last Admin: 07/12/18 23:52 Dose: 650 mg Amlodipine Besylate (Norvasc) 10 mg PO DAILY [facility] Last Admin: 07/14/18 08:28 Dose: 10 mg Aspirin (Ecotrin) 81 mg PO DAILY [facility] Last Admin: 07/14/18 08:27 Dose: 81 mg Atorvastatin Calcium (Lipitor) 20 mg PO DAILY [facility] Last Admin: 07/14/18 08:28 Dose: 20 mg Dextrose (Dextrose 50% Inj) 0 ml IV STAT PRN; Protocol PRN Reason: Hypoglycemia Protocol Dextrose (Glutose 15) 0 gm PO ONCE PRN; Protocol PRN Reason: Hypoglycemia Protocol Glipizide (Glucotrol Xl) 10 mg PO DAILY [facility] Last Admin: 07/14/18 08:27 Dose: 10 mg Glucagon (Glucagen Diagnostic Kit) 0 mg IM STAT PRN; Protocol PRN Reason: Hypoglycemia Protocol Heparin Sodium (Porcine) (Heparin) 5,000 units SC Q8 [facility]; Protocol Last Admin: 07/14/18 08:29 Dose: 5,000 units Hydromorphone HCl (Dilaudid) 1 mg IVP Q4 PRN PRN Reason: Pain, severe (8-10) Last Admin: 07/14/18 13:44 Dose: 1 mg Nafcillin Sodium 1 gm/ Sodium (Chloride) 100 mls @ 100 mls/hr IVPB Q8 [facility]; Protocol Last Admin: 07/14/18 08:30 Dose: 100 mls/hr Vancomycin HCl 1 gm/ Sodium (Chloride) 250 mls @ 166.667 mls/hr IVPB QOTHERDAY [facility]; Protocol Last Admin: 07/13/18 11:10 Dose: 166.667 mls/hr Sodium Chloride (Sodium Chloride 0.9%) 1,000 mls @ 75 mls/hr IV .[id number] [facility] Last Admin: 07/14/18 10:17 Dose: Not Given Insulin Detemir (Levemir) 50 units SC HS [facility] Last Admin: 07/13/18 22:32 Dose: 50 u Insulin Human Lispro (Humalog) 10 units SC TIDAC [facility] Last Admin: 07/14/18 13:48 Dose: 10 units Insulin Human Lispro (Humalog) 0 units SC ACHS [facility]; Protocol Last Admin: 07/14/18 13:48 Dose: 8 units Lisinopril (Zestril) 40 mg PO DAILY [facility] Last Admin: 07/14/18 08:28 Dose: 40 mg Morphine Sulfate (Morphine) 2 mg IVP Q4 PRN PRN Reason: Pain, severe (8-10) Last Admin: 07/14/18 06:31 Dose: 2 mg Multivitamins/Minerals (Therapeutic-M Tab) 1 tab PO DAILY [facility] Last Admin: 07/14/18 08:27 Dose: 1 tab Mupirocin (Bactroban Ointment) 1 applic TOP BID [facility] Last Admin: 07/14/18 10:04 Dose: Not Given Tutiw-1-Ohsv Ethyl Esters (Lovaza) 1 gm PO DAILY [facility] Last Admin: 07/14/18 08:30 Dose: 1 gm Oxycodone HCl (Oxycodone Immediate Release Tab) 5 mg PO Q4 [facility] Pantoprazole Sodium (Protonix Ec Tab) 40 mg PO DAILY [facility] Last Admin: 07/14/18 10:18 Dose: 40 mg Pioglitazone HCl (Actos) 15 mg PO DAILY [facility] Last Admin: 07/14/18 08:27 Dose: 15 mg Silver Sulfadiazine (Silvadene 1% 20 Gm) 0 ea TOP DAILY [facility] Last Admin: 07/14/18 10:12 Dose: Not Given Zolpidem Tartrate (Ambien) 5 mg PO HS PRN PRN Reason: Sleep Last Admin: 07/13/18 22:33 Dose: 5 mg - Labs Labs: 07/14/18 06:05 07/14/18 06:05 PT 13.9 Seconds (9.8-13.1) H 07/12/18 09:07 INR 1.2 07/12/18 09:07 APTT 43.1 Seconds (25.6-37.1) H 07/12/18 09:07 - Constitutional Appears: No Acute Distress - Head Exam Head Exam: ATRAUMATIC, NORMOCEPHALIC - Eye Exam Eye Exam: EOMI - ENT Exam ENT Exam: Mucous Membranes Moist - Respiratory Exam Respiratory Exam: Clear to Ausculation Bilateral, NORMAL BREATHING PATTERN. absent: Respiratory Distress - Cardiovascular Exam Cardiovascular Exam: +S1, +S2. absent: Diastolic murmur, Murmur - GI/Abdominal Exam GI & Abdominal Exam: Soft, Normal Bowel Sounds - Extremities Exam Extremities Exam: Full ROM. absent: Calf Tenderness, Pedal Edema - Neurological Exam Neurological Exam: Alert, Awake, Oriented x3 - Psychiatric Exam Psychiatric exam: Normal Affect, Normal Mood - Skin Skin Exam: Dry, Normal Color Assessment and Plan - Assessment and Plan (Free Text) Assessment: Cardiac evaluation for surgical procedure CAD CVA, [employer] shunt IVC filter HLD HTN Plan: Consulted for Pre opt cardiac evaluation Pt risk stratified for surgery, proceed with surgery as a low risk. HA1C 10 ECHO 07/12 EF 55-60%, grade 1 relaxation pattern Medications amlodipine lipitor glipizide lisinopril pioglitazone Lovaza Pt seen, examined, assessment and plan discussed with Dr Carlos Downs PGY1
[2018-07-14] MEDS ORDERED: oxyCODONE 5 mg Immediate Release Tab PO PRN (16:26)
--- NOTE | 2018-07-14 16:56 | CP.PCM.PN ---
Subjective - Date & Time of Evaluation Date of Evaluation: 07/13/18 Time of Evaluation: 19:55 Objective - Vital Signs/Intake and Output Vital Signs (last 24 hours): Temp Pulse Resp BP Pulse Ox 97.8 F 87 18 151/99 H 95 07/14/18 16:34 07/14/18 16:34 07/14/18 16:34 07/14/18 16:34 07/14/18 16:34 - Medications Medications: Current Medications Acetaminophen (Tylenol 325mg Tab) 650 mg PO Q4 PRN PRN Reason: Fever >101.0 F Last Admin: 07/12/18 23:52 Dose: 650 mg Amlodipine Besylate (Norvasc) 10 mg PO DAILY [facility] Last Admin: 07/14/18 08:28 Dose: 10 mg Aspirin (Ecotrin) 81 mg PO DAILY [facility] Last Admin: 07/14/18 08:27 Dose: 81 mg Atorvastatin Calcium (Lipitor) 20 mg PO DAILY [facility] Last Admin: 07/14/18 08:28 Dose: 20 mg Dextrose (Dextrose 50% Inj) 0 ml IV STAT PRN; Protocol PRN Reason: Hypoglycemia Protocol Dextrose (Glutose 15) 0 gm PO ONCE PRN; Protocol PRN Reason: Hypoglycemia Protocol Glipizide (Glucotrol Xl) 10 mg PO DAILY [facility] Last Admin: 07/14/18 08:27 Dose: 10 mg Glucagon (Glucagen Diagnostic Kit) 0 mg IM STAT PRN; Protocol PRN Reason: Hypoglycemia Protocol Heparin Sodium (Porcine) (Heparin) 5,000 units SC Q8 [facility]; Protocol Last Admin: 07/14/18 08:29 Dose: 5,000 units Hydromorphone HCl (Dilaudid) 1 mg IVP Q4 PRN PRN Reason: Pain, severe (8-10) Last Admin: 07/14/18 13:44 Dose: 1 mg Nafcillin Sodium 1 gm/ Sodium (Chloride) 100 mls @ 100 mls/hr IVPB Q8 [facility]; Protocol Last Admin: 07/14/18 08:30 Dose: 100 mls/hr Vancomycin HCl 1 gm/ Sodium (Chloride) 250 mls @ 166.667 mls/hr IVPB QOTHERDAY [facility]; Protocol Last Admin: 07/13/18 11:10 Dose: 166.667 mls/hr Sodium Chloride (Sodium Chloride 0.9%) 1,000 mls @ 75 mls/hr IV .[id number] [facility] Last Admin: 07/14/18 10:17 Dose: Not Given Insulin Detemir (Levemir) 50 units SC HS [facility] Last Admin: 07/13/18 22:32 Dose: 50 u Insulin Human Lispro (Humalog) 10 units SC TIDAC [facility] Last Admin: 07/14/18 13:48 Dose: 10 units Insulin Human Lispro (Humalog) 0 units SC ACHS [facility]; Protocol Last Admin: 07/14/18 13:48 Dose: 8 units Lisinopril (Zestril) 40 mg PO DAILY [facility] Last Admin: 07/14/18 08:28 Dose: 40 mg Morphine Sulfate (Morphine) 2 mg IVP Q4 PRN PRN Reason: Pain, severe (8-10) Last Admin: 07/14/18 06:31 Dose: 2 mg Multivitamins/Minerals (Therapeutic-M Tab) 1 tab PO DAILY [facility] Last Admin: 07/14/18 08:27 Dose: 1 tab Mupirocin (Bactroban Ointment) 1 applic TOP BID [facility] Last Admin: 07/14/18 10:04 Dose: Not Given Hviqb-9-Cswk Ethyl Esters (Lovaza) 1 gm PO DAILY [facility] Last Admin: 07/14/18 08:30 Dose: 1 gm Oxycodone HCl (Oxycodone Immediate Release Tab) 5 mg PO Q6 PRN PRN Reason: Pain, moderate (4-7) Pantoprazole Sodium (Protonix Ec Tab) 40 mg PO DAILY [facility] Last Admin: 07/14/18 10:18 Dose: 40 mg Pioglitazone HCl (Actos) 15 mg PO DAILY [facility] Last Admin: 07/14/18 08:27 Dose: 15 mg Silver Sulfadiazine (Silvadene 1% 20 Gm) 0 ea TOP DAILY [facility] Last Admin: 07/14/18 10:12 Dose: Not Given Zolpidem Tartrate (Ambien) 5 mg PO HS PRN PRN Reason: Sleep Last Admin: 07/13/18 22:33 Dose: 5 mg - Labs Labs: 07/14/18 06:05 07/14/18 06:05 PT 13.9 Seconds (9.8-13.1) H 07/12/18 09:07 INR 1.2 07/12/18 09:07 APTT 43.1 Seconds (25.6-37.1) H 07/12/18 09:07 Assessment and Plan (1) Sepsis Status: Acute (2) Foot ulcer, left Status: Acute (3) Diabetes mellitus with hyperglycemia Status: Acute (4) CAD (coronary artery disease) Status: Acute (5) H/O coronary artery bypass surgery Status: Acute
--- NOTE | 2018-07-14 16:57 | CP.PCM.PN ---
Subjective - Date & Time of Evaluation Date of Evaluation: 07/14/18 Time of Evaluation: 10:15 Objective - Vital Signs/Intake and Output Vital Signs (last 24 hours): Temp Pulse Resp BP Pulse Ox 97.8 F 87 18 151/99 H 95 07/14/18 16:34 07/14/18 16:34 07/14/18 16:34 07/14/18 16:34 07/14/18 16:34 - Medications Medications: Current Medications Acetaminophen (Tylenol 325mg Tab) 650 mg PO Q4 PRN PRN Reason: Fever >101.0 F Last Admin: 07/12/18 23:52 Dose: 650 mg Amlodipine Besylate (Norvasc) 10 mg PO DAILY [facility] Last Admin: 07/14/18 08:28 Dose: 10 mg Aspirin (Ecotrin) 81 mg PO DAILY [facility] Last Admin: 07/14/18 08:27 Dose: 81 mg Atorvastatin Calcium (Lipitor) 20 mg PO DAILY [facility] Last Admin: 07/14/18 08:28 Dose: 20 mg Dextrose (Dextrose 50% Inj) 0 ml IV STAT PRN; Protocol PRN Reason: Hypoglycemia Protocol Dextrose (Glutose 15) 0 gm PO ONCE PRN; Protocol PRN Reason: Hypoglycemia Protocol Glipizide (Glucotrol Xl) 10 mg PO DAILY [facility] Last Admin: 07/14/18 08:27 Dose: 10 mg Glucagon (Glucagen Diagnostic Kit) 0 mg IM STAT PRN; Protocol PRN Reason: Hypoglycemia Protocol Heparin Sodium (Porcine) (Heparin) 5,000 units SC Q8 [facility]; Protocol Last Admin: 07/14/18 08:29 Dose: 5,000 units Hydromorphone HCl (Dilaudid) 1 mg IVP Q4 PRN PRN Reason: Pain, severe (8-10) Last Admin: 07/14/18 13:44 Dose: 1 mg Nafcillin Sodium 1 gm/ Sodium (Chloride) 100 mls @ 100 mls/hr IVPB Q8 [facility]; Protocol Last Admin: 07/14/18 08:30 Dose: 100 mls/hr Vancomycin HCl 1 gm/ Sodium (Chloride) 250 mls @ 166.667 mls/hr IVPB QOTHERDAY [facility]; Protocol Last Admin: 07/13/18 11:10 Dose: 166.667 mls/hr Sodium Chloride (Sodium Chloride 0.9%) 1,000 mls @ 75 mls/hr IV .[id number] [facility] Last Admin: 07/14/18 10:17 Dose: Not Given Insulin Detemir (Levemir) 50 units SC HS [facility] Last Admin: 07/13/18 22:32 Dose: 50 u Insulin Human Lispro (Humalog) 10 units SC TIDAC [facility] Last Admin: 07/14/18 13:48 Dose: 10 units Insulin Human Lispro (Humalog) 0 units SC ACHS [facility]; Protocol Last Admin: 07/14/18 13:48 Dose: 8 units Lisinopril (Zestril) 40 mg PO DAILY [facility] Last Admin: 07/14/18 08:28 Dose: 40 mg Morphine Sulfate (Morphine) 2 mg IVP Q4 PRN PRN Reason: Pain, severe (8-10) Last Admin: 07/14/18 06:31 Dose: 2 mg Multivitamins/Minerals (Therapeutic-M Tab) 1 tab PO DAILY [facility] Last Admin: 07/14/18 08:27 Dose: 1 tab Mupirocin (Bactroban Ointment) 1 applic TOP BID [facility] Last Admin: 07/14/18 10:04 Dose: Not Given Ihdjp-5-Cwkm Ethyl Esters (Lovaza) 1 gm PO DAILY [facility] Last Admin: 07/14/18 08:30 Dose: 1 gm Oxycodone HCl (Oxycodone Immediate Release Tab) 5 mg PO Q6 PRN PRN Reason: Pain, moderate (4-7) Pantoprazole Sodium (Protonix Ec Tab) 40 mg PO DAILY [facility] Last Admin: 07/14/18 10:18 Dose: 40 mg Pioglitazone HCl (Actos) 15 mg PO DAILY [facility] Last Admin: 07/14/18 08:27 Dose: 15 mg Silver Sulfadiazine (Silvadene 1% 20 Gm) 0 ea TOP DAILY [facility] Last Admin: 07/14/18 10:12 Dose: Not Given Zolpidem Tartrate (Ambien) 5 mg PO HS PRN PRN Reason: Sleep Last Admin: 07/13/18 22:33 Dose: 5 mg - Labs Labs: 07/14/18 06:05 07/14/18 06:05 PT 13.9 Seconds (9.8-13.1) H 07/12/18 09:07 INR 1.2 07/12/18 09:07 APTT 43.1 Seconds (25.6-37.1) H 07/12/18 09:07 Assessment and Plan (1) Sepsis Status: Acute (2) Foot ulcer, left Status: Acute (3) Diabetes mellitus with hyperglycemia Status: Acute (4) CAD (coronary artery disease) Status: Acute (5) H/O coronary artery bypass surgery Status: Acute
[2018-07-14] MEDS: Insulin Detemir 100 Units/ml Inj SC SCH (21:58)
--- NOTE | 2018-07-14 23:44 | OP ---
PROCEDURE DATE: 07/12/2018 PREOPERATIVE DIAGNOSIS: Left foot fourth digit wound with abscess on plantar forefoot and osteomyelitis of fourth metatarsal head with gangrenous changes to the fourth plantar toe. POSTOPERATIVE DIAGNOSIS: Left foot fourth digit wound with abscess on plantar forefoot and osteomyelitis of fourth metatarsal head with gangrenous changes to the fourth plantar toe. PROCEDURE: Incision and drainage of left foot abscess and amputation of left fourth digit and resection of the left fourth metatarsal head. SURGEON: Cooper Deleon DPM. DEDICATED DRIVER: Catrachita Sauceda DPM, PGY-1. ANESTHESIOLOGIST: Kan Guillory MD. TYPE OF ANESTHESIA: IV sedation with local anesthesia, 20 mL of 1:1 mixture of 0.25% Marcaine and 1% lidocaine. INDICATIONS: The patient is a 48-year-old male with above diagnosis. The patient has exhausted all conservative treatments at this time and now requires surgical intervention. The patient signed the consent after careful explanation of risks, benefits and complication and alternatives for surgical procedures. No guarantees were given nor implied. PREPARATION: The patient was brought into the operating room and placed on the operating room table in the supine position. Time-out was performed for identification of the correct patient and procedure. After induction of IV sedation, the patient received a total of 20 mL of 1:1 mixture of 1% lidocaine and 0.25% Marcaine plain. No tourniquet was utilized during the procedure. The left foot and ankle were then prepped and draped in a normal sterile manner. DESCRIPTION OF PROCEDURE: Attention was directed to the plantar aspect of the fourth toe sulcus where a linear ulceration was noted extending into the fifth toe sulcus. Necrosis of the fourth plantar aspect was also noted. The base of the ulcer was noted to be 100% fibrotic and exposure of tendons were noted. Malodor was present and active purulent drainage was noted. A linear incision was made extending from the sulcus on the plantar aspect of the fourth toe to plantar central mid-foot using a #15 blade extending dorsally at the fourth proximal interphalangeal joint. The fourth digit was then disarticulated at the level of fourth MPJ using a crown and collar. At this time, a sagittal saw was utilized to resect the fourth metatarsal head from the shaft. Fourth digit and fourth metatarsal were then sent off to pathology in separate containers. The plantar incision was then further extended 1 cm proximally using sterile #15 blade. At this point, 10 mL of purulent drainage was expressed. Two deep wound cultures were also taken at this time and passed off from the operative field. Pulse lavage with bacitracin was then utilized to copiously irrigate the site. Wound was then packed with 1 inch plain packing. Then, 3-0 Prolene was utilized to place tension sutures at the site. The site was then dressed with silver sulfadiazine cream, 4x4 gauze, ABD pads and Kerlix. POSTOPERATIVE CONDITION: The patient tolerated the anesthesia and procedure well and was escorted into the recovery room with vital signs stable and neurovascular status intact in the left foot. The patient is to remain nonweightbearing at this time to the left foot. The patient will be seen and followed by Podiatry in the hospital. CATRACHITA SAUCEDA Cooper Deleon DPM JEANNIE
[2018-07-15] MEDS ORDERED: Insulin Lispro (humaLOG) 100 Units/ml Inj SC ONE (00:52)
[2018-07-15 06:22] LABS: HEMOGLOBIN 10.5 g/dL (12.0-18.0); MEAN CELL VOLUME 94.5 fl (80.0-94.0); MEAN CORPUSCULAR HEMOGLOBIN 31.6 pg (27.0-31.0); MEAN CORPUSCULAR HGB CONC 33.5 g/dL (33.0-37.0); RBC 3.33 Mil/uL (4.40-5.90); RED CELL DISTRIBUTION WIDTH 12.6 % (11.5-14.5); WHITE BLOOD COUNT 10.2 K/uL (4.8-10.8)
[2018-07-15] MEDS: Mupirocin 2% Oint 1GM UD TOP SCH ×2 (08:22→16:21)
[2018-07-15] MEDS: GlipiZIDE 10 mg SR Tab PO SCH (08:24)
[2018-07-15] MEDS: Insulin Lispro (humaLOG) 100 Units/ml Inj SC SCH ×7 (08:25→23:02)
[2018-07-15] MEDS: Omega-3-Acid Ethyl Esters 1 GM Cap PO SCH (08:27)
[2018-07-15] MEDS: Pantoprazole 40 mg EC Tab PO SCH (08:28)
[2018-07-15] MEDS: Multivitamin With Minerals Tab PO SCH (08:29)
[2018-07-15] MEDS: Silver Sulfadiazine 1% Cream (20 gm) TOP SCH (08:29)
--- NOTE | 2018-07-15 08:57 | CP.PCM.PN ---
Subjective - Date & Time of Evaluation Date of Evaluation: 07/15/18 Time of Evaluation: 08:55 - Subjective Subjective: Podiatry progress note for Dr. Deleon, 48 y/o male patient seen and evaluated at bedside POD3 incision and drainage with amputation of the 4th digit + 4th metatarsal head. Patient seen to be resting comfortably and reports mild pain to left foot since the surgery. Patient states he was able to sleep through the night. Denies n/v/sob/cp and has no other acute complaints at this time. Patient reports working with physical therapy to get in and out of bed and to chair Objective - Vital Signs/Intake and Output Vital Signs (last 24 hours): Temp Pulse Resp BP Pulse Ox 99.1 F 83 20 120/81 96 07/15/18 08:11 07/15/18 08:30 07/15/18 08:11 07/15/18 08:30 07/15/18 08:11 - Medications Medications: Current Medications Acetaminophen (Tylenol 325mg Tab) 650 mg PO Q4 PRN PRN Reason: Fever >101.0 F Last Admin: 07/12/18 23:52 Dose: 650 mg Amlodipine Besylate (Norvasc) 10 mg PO DAILY [facility] Last Admin: 07/15/18 08:28 Dose: 10 mg Aspirin (Ecotrin) 81 mg PO DAILY [facility] Last Admin: 07/15/18 08:23 Dose: 81 mg Atorvastatin Calcium (Lipitor) 20 mg PO DAILY [facility] Last Admin: 07/15/18 08:27 Dose: 20 mg Dextrose (Dextrose 50% Inj) 0 ml IV STAT PRN; Protocol PRN Reason: Hypoglycemia Protocol Dextrose (Glutose 15) 0 gm PO ONCE PRN; Protocol PRN Reason: Hypoglycemia Protocol Glipizide (Glucotrol Xl) 10 mg PO DAILY [facility] Last Admin: 07/15/18 08:24 Dose: 10 mg Glucagon (Glucagen Diagnostic Kit) 0 mg IM STAT PRN; Protocol PRN Reason: Hypoglycemia Protocol Heparin Sodium (Porcine) (Heparin) 5,000 units SC Q8 [facility]; Protocol Last Admin: 07/15/18 08:24 Dose: 5,000 units Hydromorphone HCl (Dilaudid) 1 mg IVP Q4 PRN PRN Reason: Pain, severe (8-10) Last Admin: 07/15/18 08:41 Dose: 1 mg Nafcillin Sodium 1 gm/ Sodium (Chloride) 100 mls @ 100 mls/hr IVPB Q8 [facility]; Protocol Last Admin: 07/15/18 08:27 Dose: 100 mls/hr Vancomycin HCl 1 gm/ Sodium (Chloride) 250 mls @ 166.667 mls/hr IVPB QOTHERDAY [facility]; Protocol Last Admin: 07/13/18 11:10 Dose: 166.667 mls/hr Sodium Chloride (Sodium Chloride 0.9%) 1,000 mls @ 75 mls/hr IV .[id number] [facility] Last Admin: 07/14/18 22:38 Dose: Not Given Insulin Detemir (Levemir) 50 units SC HS [facility] Last Admin: 07/14/18 21:58 Dose: 50 u Insulin Human Lispro (Humalog) 10 units SC TIDAC [facility] Last Admin: 07/15/18 08:25 Dose: 10 units Insulin Human Lispro (Humalog) 0 units SC ACHS [facility]; Protocol Last Admin: 07/15/18 08:25 Dose: 6 units Lisinopril (Zestril) 40 mg PO DAILY [facility] Last Admin: 07/15/18 08:30 Dose: 40 mg Morphine Sulfate (Morphine) 2 mg IVP Q4 PRN PRN Reason: Pain, severe (8-10) Last Admin: 07/14/18 06:31 Dose: 2 mg Multivitamins/Minerals (Therapeutic-M Tab) 1 tab PO DAILY [facility] Last Admin: 07/15/18 08:29 Dose: 1 tab Mupirocin (Bactroban Ointment) 1 applic TOP BID [facility] Last Admin: 07/15/18 08:22 Dose: Not Given [id number] Ethyl Esters (Lovaza) 1 gm PO DAILY [facility] Last Admin: 07/15/18 08:27 Dose: 1 gm Oxycodone HCl (Oxycodone Immediate Release Tab) 5 mg PO Q6 PRN PRN Reason: Pain, moderate (4-7) Pantoprazole Sodium (Protonix Ec Tab) 40 mg PO DAILY [facility] Last Admin: 07/15/18 08:28 Dose: 40 mg Pioglitazone HCl (Actos) 15 mg PO DAILY [facility] Last Admin: 07/15/18 08:21 Dose: 15 mg Silver Sulfadiazine (Silvadene 1% 20 Gm) 0 ea TOP DAILY [facility] Last Admin: 07/15/18 08:29 Dose: Not Given Zolpidem Tartrate (Ambien) 5 mg PO HS PRN PRN Reason: Sleep Last Admin: 07/14/18 22:05 Dose: 5 mg - Labs Labs: 07/15/18 06:00 07/15/18 06:00 PT 13.9 Seconds (9.8-13.1) H 07/12/18 09:07 INR 1.2 07/12/18 09:07 APTT 43.1 Seconds (25.6-37.1) H 07/12/18 09:07 - Constitutional Appears: Well, Non-toxic, No Acute Distress - Head Exam Head Exam: ATRAUMATIC, NORMOCEPHALIC - Extremities Exam Additional comments: Left Lower Extremity Vascular: DP and PT 1/4, CFT < 3 seconds, TG warm to warm, minimal edema to the dorsum of the left foot Ortho: Mild tenderness on palpation to the surgical site, left 4th digit amputation site noted open at this time Neuro: Gross sensation intact, protective sensation diminished Derm: left 4th digit amputation noted with a plantar incision with packing intact, minimal sero-sanguinous drainage noted, retention sutures intact and incision well coapted, no malodor, no signs of infection noted - Neurological Exam Neurological Exam: Alert, Awake, Oriented x3 - Psychiatric Exam Psychiatric exam: Normal Affect, Normal Mood Assessment and Plan - Assessment and Plan (Free Text) Assessment: 48 y/o male patient s/p left foot incision and drainage with amputation of fourth digit and metatarsal head; site packed with 1 inch packing and to be closed primarily at a later time Plan: Patient seen and evaluated at bedside Plan discussed with Dr. Deleon Chart, labs and vitals reviewed- pending labs from today, febrile overnight, afebrile at this time L foot x-rays ordered; no evidence of OM, no soft tissue emphysema appreciated C/w IV abx; Nafcillin, vanco ID on board; appreciate recs Wound Cx from [facility] (taken 07/05): B hemolytic strep, Staph Aureus Left Foot MRI: osteomyelitis of left fourth metatarsal head Left Foot X-rays post surgery- amputation of the 4th digit and 4th met head noted OR Pathology and WCx- no growth after 24 hours Wound irrigated well, packing was advanced from plantar incision, silvadene was applied and wound dressed with 4X4, ABD, Kerl[facility] Podiatry will plan to take patient back to the OR for wound closure- pending date Podiatry will continue to follow patient while in house
--- NOTE | 2018-07-15 09:04 | CP.PCM.PN ---
Subjective - Date & Time of Evaluation Date of Evaluation: 07/15/18 Time of Evaluation: 08:00 - Subjective Subjective: Pt seen and examined at bedside this morning. Objective - Vital Signs/Intake and Output Vital Signs (last 24 hours): Temp Pulse Resp BP Pulse Ox 99.1 F 83 20 120/81 96 07/15/18 08:11 07/15/18 08:30 07/15/18 08:11 07/15/18 08:30 07/15/18 08:11 - Medications Medications: Current Medications Acetaminophen (Tylenol 325mg Tab) 650 mg PO Q4 PRN PRN Reason: Fever >101.0 F Last Admin: 07/12/18 23:52 Dose: 650 mg Amlodipine Besylate (Norvasc) 10 mg PO DAILY [facility] Last Admin: 07/15/18 08:28 Dose: 10 mg Aspirin (Ecotrin) 81 mg PO DAILY [facility] Last Admin: 07/15/18 08:23 Dose: 81 mg Atorvastatin Calcium (Lipitor) 20 mg PO DAILY [facility] Last Admin: 07/15/18 08:27 Dose: 20 mg Dextrose (Dextrose 50% Inj) 0 ml IV STAT PRN; Protocol PRN Reason: Hypoglycemia Protocol Dextrose (Glutose 15) 0 gm PO ONCE PRN; Protocol PRN Reason: Hypoglycemia Protocol Glipizide (Glucotrol Xl) 10 mg PO DAILY [facility] Last Admin: 07/15/18 08:24 Dose: 10 mg Glucagon (Glucagen Diagnostic Kit) 0 mg IM STAT PRN; Protocol PRN Reason: Hypoglycemia Protocol Heparin Sodium (Porcine) (Heparin) 5,000 units SC Q8 [facility]; Protocol Last Admin: 07/15/18 08:24 Dose: 5,000 units Hydromorphone HCl (Dilaudid) 1 mg IVP Q4 PRN PRN Reason: Pain, severe (8-10) Last Admin: 07/15/18 08:41 Dose: 1 mg Nafcillin Sodium 1 gm/ Sodium (Chloride) 100 mls @ 100 mls/hr IVPB Q8 [facility]; Protocol Last Admin: 07/15/18 08:27 Dose: 100 mls/hr Vancomycin HCl 1 gm/ Sodium (Chloride) 250 mls @ 166.667 mls/hr IVPB QOTHERDAY [facility]; Protocol Last Admin: 07/13/18 11:10 Dose: 166.667 mls/hr Sodium Chloride (Sodium Chloride 0.9%) 1,000 mls @ 75 mls/hr IV .[id number] [facility] Last Admin: 07/14/18 22:38 Dose: Not Given Insulin Detemir (Levemir) 50 units SC HS [facility] Last Admin: 07/14/18 21:58 Dose: 50 u Insulin Human Lispro (Humalog) 10 units SC TIDAC [facility] Last Admin: 07/15/18 08:25 Dose: 10 units Insulin Human Lispro (Humalog) 0 units SC ACHS [facility]; Protocol Last Admin: 07/15/18 08:25 Dose: 6 units Lisinopril (Zestril) 40 mg PO DAILY [facility] Last Admin: 07/15/18 08:30 Dose: 40 mg Morphine Sulfate (Morphine) 2 mg IVP Q4 PRN PRN Reason: Pain, severe (8-10) Last Admin: 07/14/18 06:31 Dose: 2 mg Multivitamins/Minerals (Therapeutic-M Tab) 1 tab PO DAILY [facility] Last Admin: 07/15/18 08:29 Dose: 1 tab Mupirocin (Bactroban Ointment) 1 applic TOP BID [facility] Last Admin: 07/15/18 08:22 Dose: Not Given Oknms-0-Wtzs Ethyl Esters (Lovaza) 1 gm PO DAILY [facility] Last Admin: 07/15/18 08:27 Dose: 1 gm Oxycodone HCl (Oxycodone Immediate Release Tab) 5 mg PO Q6 PRN PRN Reason: Pain, moderate (4-7) Pantoprazole Sodium (Protonix Ec Tab) 40 mg PO DAILY [facility] Last Admin: 07/15/18 08:28 Dose: 40 mg Pioglitazone HCl (Actos) 15 mg PO DAILY [facility] Last Admin: 07/15/18 08:21 Dose: 15 mg Silver Sulfadiazine (Silvadene 1% 20 Gm) 0 ea TOP DAILY [facility] Last Admin: 07/15/18 08:29 Dose: Not Given Zolpidem Tartrate (Ambien) 5 mg PO HS PRN PRN Reason: Sleep Last Admin: 07/14/18 22:05 Dose: 5 mg - Labs Labs: 07/15/18 06:00 07/15/18 06:00 PT 13.9 Seconds (9.8-13.1) H 07/12/18 09:07 INR 1.2 07/12/18 09:07 APTT 43.1 Seconds (25.6-37.1) H 07/12/18 09:07 - Constitutional Appears: In Acute Distress - Head Exam Head Exam: ATRAUMATIC - Eye Exam Eye Exam: EOMI - ENT Exam ENT Exam: Mucous Membranes Moist - Neck Exam Neck Exam: Full ROM - Respiratory Exam Respiratory Exam: Clear to Ausculation Bilateral, NORMAL BREATHING PATTERN. absent: Accessory Muscle Use, Respiratory Distress - Cardiovascular Exam Cardiovascular Exam: RRR, +S1, +S2. absent: Diastolic murmur, Murmur - GI/Abdominal Exam GI & Abdominal Exam: Soft, Normal Bowel Sounds. absent: Tenderness - Extremities Exam Extremities Exam: absent: Calf Tenderness, Pedal Edema Additional comments: right foot dressing, clean dry and intact - Neurological Exam Neurological Exam: Alert, Awake, Oriented x3 - Psychiatric Exam Psychiatric exam: Normal Affect, Normal Mood - Skin Skin Exam: Dry, Normal Color, Warm Assessment and Plan - Assessment and Plan (Free Text) Assessment: Cardiac evaluation for surgical procedure CAD CVA, [employer] shunt IVC filter HLD HTN Plan: Consulted for Pre opt cardiac evaluation Pt risk stratified for surgery, pt is a low risk for surgery HA1C 10 ECHO 07/12/18 EF 55-60%, grade 1 relaxation pattern Medications amlodipine ASA lipitor glipizide lisinopril pioglitazone Lovaza Pt seen, examined, assessment and plan discussed with Dr Carlos Downs PGY1, Internal Medicine Resident
[2018-07-15] MEDS ORDERED: Sod Polystyrene Sulf 15 gm/60 ml Susp PO ONE (12:25)
--- NOTE | 2018-07-15 12:58 | CP.PCM.PN ---
Subjective - Date & Time of Evaluation Date of Evaluation: 07/15/18 Time of Evaluation: 12:58 - Subjective Subjective: ID Note- Patietn seen and examined today. He states he is fever free today and less pain in left foot. as per podiatry he will have wound closure tomm. Objective - Vital Signs/Intake and Output Vital Signs (last 24 hours): Temp Pulse Resp BP Pulse Ox 99.1 F 83 20 120/81 96 07/15/18 08:11 07/15/18 08:30 07/15/18 08:11 07/15/18 08:30 07/15/18 08:11 - Medications Medications: Current Medications Acetaminophen (Tylenol 325mg Tab) 650 mg PO Q4 PRN PRN Reason: Fever >101.0 F Last Admin: 07/12/18 23:52 Dose: 650 mg Amlodipine Besylate (Norvasc) 10 mg PO DAILY [facility] Last Admin: 07/15/18 08:28 Dose: 10 mg Aspirin (Ecotrin) 81 mg PO DAILY [facility] Last Admin: 07/15/18 08:23 Dose: 81 mg Atorvastatin Calcium (Lipitor) 20 mg PO DAILY [facility] Last Admin: 07/15/18 08:27 Dose: 20 mg Dextrose (Dextrose 50% Inj) 0 ml IV STAT PRN; Protocol PRN Reason: Hypoglycemia Protocol Dextrose (Glutose 15) 0 gm PO ONCE PRN; Protocol PRN Reason: Hypoglycemia Protocol Glipizide (Glucotrol Xl) 10 mg PO DAILY [facility] Last Admin: 07/15/18 08:24 Dose: 10 mg Glucagon (Glucagen Diagnostic Kit) 0 mg IM STAT PRN; Protocol PRN Reason: Hypoglycemia Protocol Heparin Sodium (Porcine) (Heparin) 5,000 units SC Q8 [facility]; Protocol Last Admin: 07/15/18 08:24 Dose: 5,000 units Hydromorphone HCl (Dilaudid) 1 mg IVP Q4 PRN PRN Reason: Pain, severe (8-10) Last Admin: 07/15/18 08:41 Dose: 1 mg Nafcillin Sodium 1 gm/ Sodium (Chloride) 100 mls @ 100 mls/hr IVPB Q8 [facility]; Protocol Last Admin: 07/15/18 08:27 Dose: 100 mls/hr Vancomycin HCl 1 gm/ Sodium (Chloride) 250 mls @ 166.667 mls/hr IVPB QOTHERDAY [facility]; Protocol Last Admin: 07/15/18 10:24 Dose: 166.667 mls/hr Sodium Chloride (Sodium Chloride 0.9%) 1,000 mls @ 75 mls/hr IV .[id number] [facility] Last Admin: 07/14/18 22:38 Dose: Not Given Insulin Detemir (Levemir) 50 units SC HS [facility] Last Admin: 07/14/18 21:58 Dose: 50 u Insulin Human Lispro (Humalog) 10 units SC TIDAC [facility] Last Admin: 07/15/18 11:44 Dose: 10 units Insulin Human Lispro (Humalog) 0 units SC ACHS [facility]; Protocol Last Admin: 07/15/18 11:42 Dose: 8 units Lisinopril (Zestril) 40 mg PO DAILY [facility] Last Admin: 07/15/18 08:30 Dose: 40 mg Multivitamins/Minerals (Therapeutic-M Tab) 1 tab PO DAILY [facility] Last Admin: 07/15/18 08:29 Dose: 1 tab Mupirocin (Bactroban Ointment) 1 applic TOP BID [facility] Last Admin: 07/15/18 08:22 Dose: Not Given [id number] Ethyl Esters (Lovaza) 1 gm PO DAILY [facility] Last Admin: 07/15/18 08:27 Dose: 1 gm Oxycodone HCl (Oxycodone Immediate Release Tab) 5 mg PO Q6 PRN PRN Reason: Pain, moderate (4-7) Pantoprazole Sodium (Protonix Ec Tab) 40 mg PO DAILY [facility] Last Admin: 07/15/18 08:28 Dose: 40 mg Pioglitazone HCl (Actos) 15 mg PO DAILY [facility] Last Admin: 07/15/18 08:21 Dose: 15 mg Silver Sulfadiazine (Silvadene 1% 20 Gm) 0 ea TOP DAILY [facility] Last Admin: 07/15/18 08:29 Dose: Not Given Zolpidem Tartrate (Ambien) 5 mg PO HS PRN PRN Reason: Sleep Last Admin: 07/14/18 22:05 Dose: 5 mg - Labs Labs: - Additional Findings Additional findings: - Constitutional Appears: No Acute Distress - Head Exam Head Exam: ATRAUMATIC - Eye Exam Eye Exam: EOMI, PERRL - ENT Exam ENT Exam: Normal Oropharynx - Neck Exam Neck exam: Positive for: Full Rom - Respiratory Exam Respiratory Exam: Clear to Auscultation Bilateral, NORMAL BREATHING PATTERN - Cardiovascular Exam Cardiovascular Exam: RRR, +S1, +S2 - GI/Abdominal Exam GI & Abdominal Exam: Normal Bowel Sounds, Soft Additional comments: NT, ND -EXT- left foot fourth toe amputation site open , no pus also has large opening where I and D was done on the plantar aspect of the left foot, has packing in place, no malodor, no pus, only sanguinous discharge - Neurological Exam Neurological exam: Alert, Oriented x 3 Laboratory Results - last 72 hr 07/12/18 07/12/18 07/12/18 16:37 21:54 21:56 WBC RBC Hgb Hct MCV MCH MCHC RDW Plt Count Sodium Potassium Chloride Carbon Dioxide Anion Gap BUN Creatinine Est GFR ( Amer) Est GFR (Non-Af Amer) POC Glucose (mg/dL) 254 H 498 H* > 500 H* Random Glucose Calcium Phosphorus Magnesium Total Bilirubin AST ALT Alkaline Phosphatase Total Protein Albumin Globulin Albumin/Globulin Ratio Vancomycin Trough 07/13/18 07/13/18 07/13/18 00:35 05:51 09:52 WBC 14.1 H RBC 3.40 L Hgb 10.8 L Hct 32.6 L MCV 95.8 H D MCH 31.7 H MCHC 33.1 RDW 12.8 Plt Count 427 H Sodium Potassium Chloride Carbon Dioxide Anion Gap BUN Creatinine Est GFR ( Amer) Est GFR (Non-Af Amer) POC Glucose (mg/dL) 389 H 302 H Random Glucose Calcium Phosphorus Magnesium Total Bilirubin AST ALT Alkaline Phosphatase Total Protein Albumin Globulin Albumin/Globulin Ratio Vancomycin Trough 07/13/18 07/13/18 07/13/18 09:52 11:13 16:10 WBC RBC Hgb Hct MCV MCH MCHC RDW Plt Count Sodium 134 Potassium 5.2 H Chloride 94 L Carbon Dioxide 29 Anion Gap 16 BUN 37 H Creatinine 2.2 H Est GFR ( Amer) 39 Est GFR (Non-Af Amer) 32 POC Glucose (mg/dL) 313 H 243 H Random Glucose 295 H Calcium 9.3 Phosphorus Magnesium Total Bilirubin AST ALT Alkaline Phosphatase Total Protein Albumin Globulin Albumin/Globulin Ratio Vancomycin Trough 07/13/18 07/14/18 07/14/18 22:05 01:52 06:05 WBC 13.0 H RBC 3.49 L Hgb 11.2 L Hct 33.2 L MCV 95.3 H MCH 32.1 H MCHC 33.6 RDW 12.9 Plt Count 466 H Sodium Potassium Chloride Carbon Dioxide Anion Gap BUN Creatinine Est GFR ( Amer) Est GFR (Non-Af Amer) POC Glucose (mg/dL) 347 H 373 H Random Glucose Calcium Phosphorus Magnesium Total Bilirubin AST ALT Alkaline Phosphatase Total Protein Albumin Globulin Albumin/Globulin Ratio Vancomycin Trough 07/14/18 07/14/18 07/14/18 06:05 06:08 11:32 WBC RBC Hgb Hct MCV MCH MCHC RDW Plt Count Sodium 133 Potassium 4.6 Chloride 94 L Carbon Dioxide 30 Anion Gap 14 BUN 35 H Creatinine 2.2 H Est GFR ( Amer) 39 Est GFR (Non-Af Amer) 32 POC Glucose (mg/dL) 272 H 377 H Random Glucose 307 H Calcium 9.1 Phosphorus 3.9 Magnesium 1.9 Total Bilirubin 0.4 AST 101 H ALT 94 H Alkaline Phosphatase 237 H Total Protein 7.3 Albumin 3.4 L Globulin 3.9 Albumin/Globulin Ratio 0.9 L Vancomycin Trough 07/14/18 07/14/18 07/15/18 15:56 21:25 00:38 WBC RBC Hgb Hct MCV MCH MCHC RDW Plt Count Sodium Potassium Chloride Carbon Dioxide Anion Gap BUN Creatinine Est GFR ( Amer) Est GFR (Non-Af Amer) POC Glucose (mg/dL) 352 H 270 H 363 H Random Glucose Calcium Phosphorus Magnesium Total Bilirubin AST ALT Alkaline Phosphatase Total Protein Albumin Globulin Albumin/Globulin Ratio Vancomycin Trough 07/15/18 07/15/18 07/15/18 02:31 05:45 06:00 WBC 10.2 RBC 3.33 L Hgb 10.5 L Hct 31.4 L MCV 94.5 H MCH 31.6 H MCHC 33.5 RDW 12.6 Plt Count 512 H Sodium Potassium Chloride Carbon Dioxide Anion Gap BUN Creatinine Est GFR ( Amer) Est GFR (Non-Af Amer) POC Glucose (mg/dL) 305 H 251 H Random Glucose Calcium Phosphorus Magnesium Total Bilirubin AST ALT Alkaline Phosphatase Total Protein Albumin Globulin Albumin/Globulin Ratio Vancomycin Trough 07/15/18 07/15/18 07/15/18 06:00 09:46 11:06 WBC RBC Hgb Hct MCV MCH MCHC RDW Plt Count Sodium 132 Potassium 5.4 H Chloride 93 L Carbon Dioxide 29 Anion Gap 15 BUN 36 H Creatinine 2.0 H Est GFR ( Amer) 43 Est GFR (Non-Af Amer) 36 POC Glucose (mg/dL) 369 H Random Glucose 323 H Calcium 9.0 Phosphorus Magnesium Total Bilirubin AST ALT Alkaline Phosphatase Total Protein Albumin Globulin Albumin/Globulin Ratio Vancomycin Trough < 5.0 L Microbiology 07/12/18 05:00 Abscess - Foot-Left Gram Stain - Final 07/12/18 05:00 Abscess - Foot-Left Wound Culture - Preliminary Gram Positive Cocci 07/12/18 05:00 Abscess - Foot-Left Gram Stain - Final 07/12/18 05:00 Abscess - Foot-Left Wound Culture - Preliminary Gram Positive Cocci 07/09/18 12:15 Blood-Venous Blood Culture - Final NO GROWTH AFTER 5 DAYS 07/09/18 12:15 Blood-Venous Gram Stain - Final TEST NOT PERFORMED 07/09/18 12:00 Blood-Venous Blood Culture - Final NO GROWTH AFTER 5 DAYS 07/09/18 12:00 Blood-Venous Gram Stain - Final TEST NOT PERFORMED 07/08/18 19:16 Toe Gram Stain - Final 07/08/18 19:16 Toe Wound Culture - Final Beta Hemolytic Strep Group B Staphylococcus Aureus 07/07/18 00:02 Blood-Venous Blood Culture - Final NO GROWTH AFTER 5 DAYS 07/07/18 00:02 Blood-Venous Gram Stain - Final TEST NOT PERFORMED 07/08/18 00:17 Blood-Venous Blood Culture - Final NO GROWTH AFTER 5 DAYS 07/08/18 00:17 Blood-Venous Gram Stain - Final TEST NOT PERFORMED 07/08/18 19:16 Urine,Clean Catch Urine Culture - Final No Growth (<1,000 CFU/ML) Assessment and Plan (1) Cellulitis of left foot Status: Acute (2) Leukocytosis Status: Acute - Assessment and Plan (Free Text) Assessment: - Assessment and Plan (Free Text) Assessment: 48 year old male with DM II was admitted with left foot fourth digit region with open lesion and surrounding cellulitis. found to have Om of left fourth toe POD #3 incision and drainage with amputation of the 4th digit + 4th metatarsal head. afebrile past 48 hours. leukocytosis resolved today HIGH ESR wound cx- Strep group B and MSSA OR wound cx- prelim GPC x 2 MRI report-Possible Om of left fourth metatarsal head. blood cx- neg x 4 Plan- for now advise to continue patient on IV nafcillin ( renal dose ) for MSSA foot infection.day #7 advise to also continue renal dose vanco q48 hours. keep vanco trough <15.await ID and sensitivity of the OR wound cx GPC . based on the extent of the infection advise to place picc line and have patietn be on IV antibiotics for another 2-3 weeks as outpatient. All above d/w patient and he verbalzies full understanding of all above and agrees with above plan of care.
[2018-07-15] MEDS: Sodium Chloride 0.9% 1,000 ML IV SCH (13:24)
[2018-07-15] MEDS: Insulin Detemir 100 Units/ml Inj SC SCH (23:03)
[2018-07-16] MEDS: Sodium Chloride 0.9% 1,000 ML IV SCH ×4 (00:45→19:45)
--- NOTE | 2018-07-16 01:57 | CP.PCM.PN ---
Subjective - Date & Time of Evaluation Date of Evaluation: 07/15/18 Time of Evaluation: 13:05 - Subjective Subjective: Seen and examined at the bed side. Denies fever or chills in the last 48hrs. Continue to complain pain at the Surgery site. Scheduled for Wound closure tomorrow. No chest pain, dyspnea or palpitation. Objective - Vital Signs/Intake and Output Vital Signs (last 24 hours): Temp Pulse Resp BP Pulse Ox 98.3 F 80 18 160/94 H 95 07/15/18 23:57 07/15/18 23:57 07/15/18 23:57 07/15/18 23:57 07/15/18 23:57 - Medications Medications: Current Medications Acetaminophen (Tylenol 325mg Tab) 650 mg PO Q4 PRN PRN Reason: Fever >101.0 F Last Admin: 07/12/18 23:52 Dose: 650 mg Amlodipine Besylate (Norvasc) 10 mg PO DAILY [facility] Last Admin: 07/15/18 08:28 Dose: 10 mg Aspirin (Ecotrin) 81 mg PO DAILY [facility] Last Admin: 07/15/18 08:23 Dose: 81 mg Atorvastatin Calcium (Lipitor) 20 mg PO DAILY [facility] Last Admin: 07/15/18 08:27 Dose: 20 mg Dextrose (Dextrose 50% Inj) 0 ml IV STAT PRN; Protocol PRN Reason: Hypoglycemia Protocol Dextrose (Glutose 15) 0 gm PO ONCE PRN; Protocol PRN Reason: Hypoglycemia Protocol Glipizide (Glucotrol Xl) 10 mg PO DAILY [facility] Last Admin: 07/15/18 08:24 Dose: 10 mg Glucagon (Glucagen Diagnostic Kit) 0 mg IM STAT PRN; Protocol PRN Reason: Hypoglycemia Protocol Heparin Sodium (Porcine) (Heparin) 5,000 units SC Q8 [facility]; Protocol Last Admin: 07/15/18 08:24 Dose: 5,000 units Hydromorphone HCl (Dilaudid) 1 mg IVP Q4 PRN PRN Reason: Pain, severe (8-10) Last Admin: 07/15/18 23:10 Dose: 1 mg Nafcillin Sodium 1 gm/ Sodium (Chloride) 100 mls @ 100 mls/hr IVPB Q8 [facility]; P rotocol Last Admin: 07/16/18 00:52 Dose: 100 mls/hr Vancomycin HCl 1 gm/ Sodium (Chloride) 250 mls @ 166.667 mls/hr IVPB QOTHERDAY [facility]; Protocol Last Admin: 07/15/18 10:24 Dose: 166.667 mls/hr Sodium Chloride (Sodium Chloride 0.9%) 1,000 mls @ 75 mls/hr IV .[id number] [facility] Last Admin: 07/16/18 00:45 Dose: Not Given Insulin Detemir (Levemir) 50 units SC HS [facility] Last Admin: 07/15/18 23:03 Dose: 50 u Insulin Human Lispro (Humalog) 10 units SC TIDAC [facility] Last Admin: 07/15/18 16:23 Dose: 10 units Insulin Human Lispro (Humalog) 0 units SC ACHS [facility]; Protocol Last Admin: 07/15/18 23:02 Dose: Not Given Lisinopril (Zestril) 40 mg PO DAILY [facility] Last Admin: 07/15/18 08:30 Dose: 40 mg Multivitamins/Minerals (Therapeutic-M Tab) 1 tab PO DAILY [facility] Last Admin: 07/15/18 08:29 Dose: 1 tab Mupirocin (Bactroban Ointment) 1 applic TOP BID [facility] Last Admin: 07/15/18 16:21 Dose: 1 applic [id number] Ethyl Esters (Lovaza) 1 gm PO DAILY [facility] Last Admin: 07/15/18 08:27 Dose: 1 gm Oxycodone HCl (Oxycodone Immediate Release Tab) 5 mg PO Q6 PRN PRN Reason: Pain, moderate (4-7) Pantoprazole Sodium (Protonix Ec Tab) 40 mg PO DAILY [facility] Last Admin: 07/15/18 08:28 Dose: 40 mg Pioglitazone HCl (Actos) 15 mg PO DAILY [facility] Last Admin: 07/15/18 08:21 Dose: 15 mg Silver Sulfadiazine (Silvadene 1% 20 Gm) 0 ea TOP DAILY [facility] Last Admin: 07/15/18 08:29 Dose: Not Given Zolpidem Tartrate (Ambien) 5 mg PO HS PRN PRN Reason: Sleep Last Admin: 07/15/18 22:11 Dose: 5 mg - Labs Labs: 07/15/18 06:00 07/15/18 06:00 PT 13.9 Seconds (9.8-13.1) H 07/12/18 09:07 INR 1.2 02/18/19 09:07 APTT 43.1 Seconds (25.6-37.1) H 07/12/18 09:07 - Constitutional Appears: No Acute Distress - Head Exam Head Exam: ATRAUMATIC, NORMAL INSPECTION, NORMOCEPHALIC - Eye Exam Eye Exam: EOMI, Normal appearance, PERRL Pupil Exam: NORMAL ACCOMODATION, PERRL - ENT Exam ENT Exam: Mucous Membranes Moist, Normal Exam - Neck Exam Neck Exam: Full ROM, Normal Inspection. absent: Lymphadenopathy - Respiratory Exam Respiratory Exam: Clear to Ausculation Bilateral, NORMAL BREATHING PATTERN - Cardiovascular Exam Cardiovascular Exam: REGULAR RHYTHM, +S1, +S2. absent: Murmur - GI/Abdominal Exam GI & Abdominal Exam: Soft, Normal Bowel Sounds. absent: Tenderness - Extremities Exam Additional comments: Left 4th digit amputation noted with a plantar incision with packing intact, minimal sero-sanguinous drainage noted, retention sutures intact and incision well coapted, no malodor, no signs of infection noted - Back Exam Back Exam: NORMAL INSPECTION - Neurological Exam Neurological Exam: Alert, Awake, CN II-XII Intact, Normal Gait, Oriented x3 - Psychiatric Exam Psychiatric exam: Normal Affect, Normal Mood - Skin Skin Exam: Dry, Intact, Normal Color, Warm Assessment and Plan (1) Sepsis Status: Acute (2) Foot ulcer, left Assessment & Plan: S/P Surgery with open Wound Status: Acute (3) Diabetes mellitus with hyperglycemia Status: Acute (4) CAD (coronary artery disease) Status: Acute (5) H/O coronary artery bypass surgery Status: Acute - Assessment and Plan (Free Text) Plan: Continue Current Care NPO past Midnight except Meds for Wound closure to the left Toe amputation site Wound Care Daily
[2018-07-16] MEDS ORDERED: Bupivacaine 0.5% Inj(30mL) IJ ONE (06:35)
[2018-07-16] MEDS ORDERED: Lidocaine 1% Inj (20ml) IJ ONE ×2 (06:35→07:20)
[2018-07-16 06:39] LABS: HEMOGLOBIN 10.4 g/dL (12.0-18.0); MEAN CELL VOLUME 94.2 fl (80.0-94.0); MEAN CORPUSCULAR HEMOGLOBIN 32.4 pg (27.0-31.0); MEAN CORPUSCULAR HGB CONC 34.4 g/dL (33.0-37.0); RBC 3.22 Mil/uL (4.40-5.90); RED CELL DISTRIBUTION WIDTH 12.6 % (11.5-14.5); WHITE BLOOD COUNT 10.2 K/uL (4.8-10.8)
[2018-07-16 06:40] LABS: ALB/GLOB RATIO 0.9 (1.0-2.1); ALBUMIN 3.3 g/dL (3.5-5.0); CALCIUM 8.7 mg/dL (8.4-10.2)
--- NOTE | 2018-07-16 06:41 | CP.PCM.PN ---
Subjective - Date & Time of Evaluation Date of Evaluation: 07/16/18 Time of Evaluation: 06:39 - Subjective Subjective: Podiatry progress note - Dr. Deleon 48M seen and evaluated at bedside this AM. Resting comfortably, no acute distress. Denies acute events overnight. Reports mild pain overnight relieved by medication. Denies pain at present. Denies n/v/f/c/sob/cp and has no other acute complaints. NPO status confirmed. Objective - Vital Signs/Intake and Output Vital Signs (last 24 hours): Temp Pulse Resp BP Pulse Ox 98.6 F 73 19 155/98 H 96 07/16/18 04:52 07/16/18 04:52 07/16/18 04:52 07/16/18 04:52 07/16/18 04:52 - Medications Medications: Current Medications Acetaminophen (Tylenol 325mg Tab) 650 mg PO Q4 PRN PRN Reason: Fever >101.0 F Last Admin: 07/12/18 23:52 Dose: 650 mg Amlodipine Besylate (Norvasc) 10 mg PO DAILY [facility] Last Admin: 07/15/18 08:28 Dose: 10 mg Aspirin (Ecotrin) 81 mg PO DAILY [facility] Last Admin: 07/15/18 08:23 Dose: 81 mg Atorvastatin Calcium (Lipitor) 20 mg PO DAILY [facility] Last Admin: 07/15/18 08:27 Dose: 20 mg Bupivacaine HCl (Marcaine 0.5%) 10 ml IJ ONCE ONE Stop: 07/16/18 06:36 Dextrose (Dextrose 50% Inj) 0 ml IV STAT PRN; Protocol PRN Reason: Hypoglycemia Protocol Dextrose (Glutose 15) 0 gm PO ONCE PRN; Protocol PRN Reason: Hypoglycemia Protocol Glipizide (Glucotrol Xl) 10 mg PO DAILY [facility] Last Admin: 07/15/18 08:24 Dose: 10 mg Glucagon (Glucagen Diagnostic Kit) 0 mg IM STAT PRN; Protocol PRN Reason: Hypoglycemia Protocol Heparin Sodium (Porcine) (Heparin) 5,000 units SC Q8 [facility]; Protocol Last Admin: 07/15/18 08:24 Dose: 5,000 units Hydromorphone HCl (Dilaudid) 1 mg IVP Q4 PRN PRN Reason: Pain, severe (8-10) Last Admin: 07/16/18 05:35 Dose: 1 mg Nafcillin Sodium 1 gm/ Sodium (Chloride) 100 mls @ 100 mls/hr IVPB Q8 [facility]; Protocol Last Admin: 07/16/18 00:52 Dose: 100 mls/hr Vancomycin HCl 1 gm/ Sodium (Chloride) 250 mls @ 166.667 mls/hr IVPB QOTHERDAY [facility]; Protocol Last Admin: 07/15/18 10:24 Dose: 166.667 mls/hr Sodium Chloride (Sodium Chloride 0.9%) 1,000 mls @ 75 mls/hr IV .[id number] [facility] Last Admin: 07/16/18 00:45 Dose: Not Given Sodium Chloride (Sodium Chloride 0.9%) 1,000 mls @ 0 mls/hr IV .Q0M [facility] Stop: 07/17/18 06:35 Insulin Detemir (Levemir) 50 units SC HS [facility] Last Admin: 07/15/18 23:03 Dose: 50 u Insulin Human Lispro (Humalog) 10 units SC TIDAC [facility] Last Admin: 07/15/18 16:23 Dose: 10 units Insulin Human Lispro (Humalog) 0 units SC ACHS [facility]; Protocol Last Admin: 07/15/18 23:02 Dose: Not Given Lidocaine HCl (Lidocaine 1% (20ml)) 10 ml IJ ONCE ONE Stop: 07/16/18 06:36 Lisinopril (Zestril) 40 mg PO DAILY [facility] Last Admin: 07/15/18 08:30 Dose: 40 mg Multivitamins/Minerals (Therapeutic-M Tab) 1 tab PO DAILY [facility] Last Admin: 07/15/18 08:29 Dose: 1 tab Mupirocin (Bactroban Ointment) 1 applic TOP BID [facility] Last Admin: 07/15/18 16:21 Dose: 1 applic [id number] Ethyl Esters (Lovaza) 1 gm PO DAILY [facility] Last Admin: 07/15/18 08:27 Dose: 1 gm Oxycodone HCl (Oxycodone Immediate Release Tab) 5 mg PO Q6 PRN PRN Reason: Pain, moderate (4-7) Pantoprazole Sodium (Protonix Ec Tab) 40 mg PO DAILY [facility] Last Admin: 07/15/18 08:28 Dose: 40 mg Pioglitazone HCl (Actos) 15 mg PO DAILY [facility] Last Admin: 07/15/18 08:21 Dose: 15 mg Silver Sulfadiazine (Silvadene 1% 20 Gm) 0 ea TOP DAILY [facility] Last Admin: 07/15/18 08:29 Dose: Not Given Zolpidem Tartrate (Ambien) 5 mg PO HS PRN PRN Reason: Sleep Last Admin: 07/15/18 22:11 Dose: 5 mg - Labs Labs: 07/15/18 06:00 07/15/18 06:00 PT 13.9 Seconds (9.8-13.1) H 07/12/18 09:07 INR 1.2 07/12/18 09:07 APTT 43.1 Seconds (25.6-37.1) H 07/12/18 09:07 - Constitutional Appears: Non-toxic - Head Exam Head Exam: ATRAUMATIC - Extremities Exam Additional comments: Left Lower Extremity Vascular: DP and PT 1/4, CFT < 3 seconds, TG warm to warm, minimal edema to the dorsum of the left foot Ortho: Mild tenderness on palpation to the surgical site, left 4th digit amputation site noted open at this time Neuro: Gross sensation intact, protective sensation diminished Derm: left 4th digit amputation noted with a plantar incision with packing intact, minimal sero-sanguinous drainage noted, retention sutures intact and incision well coapted, no malodor, no signs of infection noted - Neurological Exam Neurological Exam: Alert, Awake, Oriented x3 - Psychiatric Exam Psychiatric exam: Normal Affect, Normal Mood Assessment and Plan - Assessment and Plan (Free Text) Assessment: 48M s/p left foot incision and drainage with amputation of fourth digit and metatarsal head; evaluated preoperatively for delayed primary closure procedure this AM Plan: Pt was seen and examined at bedside Pt NPO status was confirmed All pre-op testing and clearance in chart Pt has exhausted all conservative treatment at this time and is opting for surgical intervention Pt was explained procedure and post-operative course All pt's questions were answered to satisfaction No guarantees were made Pt understands all risks, benefits and complications of procedure Pt will follow-up with Dr. Deleon as outpatient upon discharge Will continue to follow in house
[2018-07-16] MEDS ORDERED: Sodium Chloride 0.9% 1,000 ML IV SCH (06:45)
[2018-07-16] MEDS ORDERED: Lidocaine 2% Inj (20ml) ONE (07:19)
[2018-07-16] MEDS ORDERED: Bupivacaine HCl 0.5% PF (30 ml) Inj ONE (07:19)
[2018-07-16] MEDS ORDERED: Bupivacaine 0.25% Inj(30mL) IJ ONE (07:20)
--- NOTE | 2018-07-16 07:20 | CP.PCM.HP ---
Past Patient History - Past Medical History & Family History Past Medical History?: Yes Past Family History: Reviewed and not pertinent - Past Social History Smoking Status: Never Smoked Alcohol: None Drugs: Denies - CARDIAC Hx Hypercholesterolemia: Yes Hx Hypertension: Yes - PULMONARY Hx Respiratory Disorders: Yes Other/Comment: past lung surgery - NEUROLOGICAL Hx Neurological Disorder: Yes HX Cerebrovascular Accident: Yes Other/Comment: craniotomy in 2010 - HEENT Hx HEENT Problems: No - RENAL Hx Chronic Kidney Disease: No - ENDOCRINE/METABOLIC Hx Diabetes Mellitus Type 2: Yes - HEMATOLOGICAL/ONCOLOGICAL Hx Blood Disorders: No - INTEGUMENTARY Hx Dermatological Problems: No - MUSCULOSKELETAL/RHEUMATOLOGICAL Hx Falls: No - GASTROINTESTINAL Hx Gastrointestinal Disorders: No - GENITOURINARY/GYNECOLOGICAL Hx Genitourinary Disorders: No - PSYCHIATRIC Hx Substance Use: No - SURGICAL HISTORY Hx Surgeries: Yes Other/Comment: cardiac surgery. cerebral shunt. lung surgery - ANESTHESIA Hx Anesthesia: Yes Hx Anesthesia Reactions: No Meds Allergies/Adverse Reactions: Allergies Allergy/AdvReac Type Severity Reaction Status Date / Time No Known Allergies Allergy Verified 07/05/18 09:56 Results - Vital Signs Recent Vital Signs: Last Vital Signs Temp 98.6 F 07/16/18 04:52 Pulse 73 07/16/18 04:52 Resp 19 07/16/18 04:52 BP 155/98 H 07/16/18 04:52 Pulse Ox 96 07/16/18 04:52 - Labs Result Diagrams: 07/16/18 06:21 07/16/18 06:21 Labs: Laboratory Results - last 24 hr 07/15/18 07/15/18 07/15/18 09:46 11:06 15:42 WBC RBC Hgb Hct MCV MCH MCHC RDW Plt Count Sodium Potassium Chloride Carbon Dioxide Anion Gap BUN Creatinine Est GFR ( Amer) Est GFR (Non-Af Amer) POC Glucose (mg/dL) 369 H 363 H Random Glucose Calcium Total Bilirubin AST ALT Alkaline Phosphatase Total Protein Albumin Globulin Albumin/Globulin Ratio Vancomycin Trough < 5.0 L 07/15/18 07/16/18 07/16/18 22:08 05:30 06:21 WBC 10.2 RBC 3.22 L Hgb 10.4 L Hct 30.4 L MCV 94.2 H MCH 32.4 H MCHC 34.4 RDW 12.6 Plt Count 547 H Sodium Potassium Chloride Carbon Dioxide Anion Gap BUN Creatinine Est GFR ( Amer) Est GFR (Non-Af Amer) POC Glucose (mg/dL) 254 H 321 H Random Glucose Calcium Total Bilirubin AST ALT Alkaline Phosphatase Total Protein Albumin Globulin Albumin/Globulin Ratio Vancomycin Trough 07/16/18 06:21 WBC RBC Hgb Hct MCV MCH MCHC RDW Plt Count Sodium 135 Potassium 4.6 Chloride 94 L Carbon Dioxide 27 Anion Gap 19 BUN 31 H Creatinine 2.0 H Est GFR ( Amer) 43 Est GFR (Non-Af Amer) 36 POC Glucose (mg/dL) Random Glucose 331 H Calcium 8.7 Total Bilirubin 0.5 AST 99 H ALT 112 H Alkaline Phosphatase 191 H Total Protein 7.1 Albumin 3.3 L Globulin 3.8 Albumin/Globulin Ratio 0.9 L Vancomycin Trough
--- NOTE | 2018-07-16 07:23 | CP.PCM.PN ---
Subjective - Date & Time of Evaluation Date of Evaluation: 07/16/18 Time of Evaluation: 07:00 - Subjective Subjective: Pt seen and examined this morning. Pt has no new complaints at this time. Objective - Vital Signs/Intake and Output Vital Signs (last 24 hours): Temp Pulse Resp BP Pulse Ox 98.6 F 73 19 155/98 H 96 07/16/18 04:52 07/16/18 04:52 07/16/18 04:52 07/16/18 04:52 07/16/18 04:52 - Medications Medications: Current Medications Acetaminophen (Tylenol 325mg Tab) 650 mg PO Q4 PRN PRN Reason: Fever >101.0 F Last Admin: 07/12/18 23:52 Dose: 650 mg Amlodipine Besylate (Norvasc) 10 mg PO DAILY [facility] Last Admin: 07/15/18 08:28 Dose: 10 mg Aspirin (Ecotrin) 81 mg PO DAILY [facility] Last Admin: 07/15/18 08:23 Dose: 81 mg Atorvastatin Calcium (Lipitor) 20 mg PO DAILY [facility] Last Admin: 07/15/18 08:27 Dose: 20 mg Dextrose (Dextrose 50% Inj) 0 ml IV STAT PRN; Protocol PRN Reason: Hypoglycemia Protocol Dextrose (Glutose 15) 0 gm PO ONCE PRN; Protocol PRN Reason: Hypoglycemia Protocol Glipizide (Glucotrol Xl) 10 mg PO DAILY [facility] Last Admin: 07/15/18 08:24 Dose: 10 mg Glucagon (Glucagen Diagnostic Kit) 0 mg IM STAT PRN; Protocol PRN Reason: Hypoglycemia Protocol Heparin Sodium (Porcine) (Heparin) 5,000 units SC Q8 [facility]; Protocol Last Admin: 07/15/18 08:24 Dose: 5,000 units Hydromorphone HCl (Dilaudid) 1 mg IVP Q4 PRN PRN Reason: Pain, severe (8-10) Last Admin: 07/16/18 05:35 Dose: 1 mg Nafcillin Sodium 1 gm/ Sodium (Chloride) 100 mls @ 100 mls/hr IVPB Q8 [facility]; Protocol Last Admin: 07/16/18 00:52 Dose: 100 mls/hr Vancomycin HCl 1 gm/ Sodium (Chloride) 250 mls @ 166.667 mls/hr IVPB QOTHERDAY [facility]; Protocol Last Admin: 07/15/18 10:24 Dose: 166.667 mls/hr Sodium Chloride (Sodium Chloride 0.9%) 1,000 mls @ 75 mls/hr IV .[id number] [facility] Last Admin: 07/16/18 00:45 Dose: Not Given Sodium Chloride (Sodium Chloride 0.9%) 1,000 mls @ 0 mls/hr IV .Q0M [facility] Stop: 07/17/18 06:35 Insulin Detemir (Levemir) 50 units SC HS [facility] Last Admin: 07/15/18 23:03 Dose: 50 u Insulin Human Lispro (Humalog) 10 units SC TIDAC [facility] Last Admin: 07/15/18 16:23 Dose: 10 units Insulin Human Lispro (Humalog) 0 units SC ACHS [facility]; Protocol Last Admin: 07/15/18 23:02 Dose: Not Given Lisinopril (Zestril) 40 mg PO DAILY [facility] Last Admin: 07/15/18 08:30 Dose: 40 mg Multivitamins/Minerals (Therapeutic-M Tab) 1 tab PO DAILY [facility] Last Admin: 07/15/18 08:29 Dose: 1 tab Mupirocin (Bactroban Ointment) 1 applic TOP BID [facility] Last Admin: 07/15/18 16:21 Dose: 1 applic [id number]-1-Ehuh Ethyl Esters (Lovaza) 1 gm PO DAILY [facility] Last Admin: 07/15/18 08:27 Dose: 1 gm Oxycodone HCl (Oxycodone Immediate Release Tab) 5 mg PO Q6 PRN PRN Reason: Pain, moderate (4-7) Pantoprazole Sodium (Protonix Ec Tab) 40 mg PO DAILY [facility] Last Admin: 07/15/18 08:28 Dose: 40 mg Pioglitazone HCl (Actos) 15 mg PO DAILY [facility] Last Admin: 07/15/18 08:21 Dose: 15 mg Silver Sulfadiazine (Silvadene 1% 20 Gm) 0 ea TOP DAILY [facility] Last Admin: 07/15/18 08:29 Dose: Not Given Zolpidem Tartrate (Ambien) 5 mg PO HS PRN PRN Reason: Sleep Last Admin: 07/15/18 22:11 Dose: 5 mg - Labs Labs: 07/16/18 06:21 07/16/18 06:21 PT 13.9 Seconds (9.8-13.1) H 07/12/18 09:07 INR 1.2 07/12/18 09:07 APTT 43.1 Seconds (25.6-37.1) H 07/12/18 09:07 - Constitutional Appears: No Acute Distress - Head Exam Head Exam: ATRAUMATIC, NORMOCEPHALIC - Eye Exam Eye Exam: EOMI - ENT Exam ENT Exam: Mucous Membranes Moist - Neck Exam Neck Exam: Full ROM - Respiratory Exam Respiratory Exam: Clear to Ausculation Bilateral, NORMAL BREATHING PATTERN. absent: Accessory Muscle Use, Respiratory Distress - Cardiovascular Exam Cardiovascular Exam: RRR, +S1, +S2. absent: Diastolic murmur, Murmur - GI/Abdominal Exam GI & Abdominal Exam: Soft, Normal Bowel Sounds. absent: Tenderness - Extremities Exam Extremities Exam: Full ROM Additional comments: left foot bandage clean dry and intact - Neurological Exam Neurological Exam: Alert, Awake, Oriented x3 - Psychiatric Exam Psychiatric exam: Normal Affect, Normal Mood - Skin Skin Exam: Dry, Normal Color, Warm Assessment and Plan - Assessment and Plan (Free Text) Assessment: Cardiac evaluation for surgical procedure CAD CVA, AVIAN KEEPER shunt IVC filter HLD HTN Plan: Consulted for Pre opt cardiac evaluation Pt risk stratified for surgery, pt is a low risk for surgery HA1C 10 ECHO 07/12/18 EF 55-60%, grade 1 relaxation pattern Medications amlodipine lipitor glipizide lisinopril Lovaza pioglitazone Pt seen, examined, assessment and plan discussed with Dr Carlos Downs PGY1, Internal Medicine Resident
[2018-07-16] MEDS ORDERED: Propofol 10 mg/ml Inj (20 ML) ONE ×2 (07:32→08:41)
[2018-07-16] MEDS ORDERED: Midazolam 2 MG/2 ML VIAL ONE ×2 (07:32→08:59)
--- NOTE | 2018-07-16 07:34 | CP.PCM.HP ---
History of Present Illness - History of Present Illness History of Present Illness: 48M with pmhx of DM, HTN, CVA, HLD seen and evaluated at bedside for left fourth digit laceration. Patient was reversing his car wearing slippers and his foot slipped and he sustained a laceration at the fourth digit on the bottom of his foot. States that he felt a great deal of pain associated with the incident and noticed some bleeding and pus formation. 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 Reports fever symptoms but denies n/v/sob/cp. States he has not eaten since dinner last night. Denies any reactions associated with anesthesia. Exhausted all other methods and requires surgical intervention. PMHx: above PSHx: left fourth partial ray amputation All: NKDA Present on Admission - Present on Admission Any Indicators Present on Admission: No Past Patient History - Past Medical History & Family History Past Medical History?: Yes Past Family History: Reviewed and not pertinent - Past Social History Smoking Status: Never Smoked Alcohol: None Drugs: Denies - CARDIAC Hx Hypercholesterolemia: Yes Hx Hypertension: Yes - PULMONARY Hx Respiratory Disorders: Yes Other/Comment: past lung surgery - NEUROLOGICAL Hx Neurological Disorder: Yes HX Cerebrovascular Accident: Yes Other/Comment: craniotomy in 2009 - HEENT Hx HEENT Problems: No - RENAL Hx Chronic Kidney Disease: No - ENDOCRINE/METABOLIC Hx Diabetes Mellitus Type 2: Yes - HEMATOLOGICAL/ONCOLOGICAL Hx Blood Disorders: No - INTEGUMENTARY Hx Dermatological Problems: No - MUSCULOSKELETAL/RHEUMATOLOGICAL Hx Falls: No - GASTROINTESTINAL Hx Gastrointestinal Disorders: No - GENITOURINARY/GYNECOLOGICAL Hx Genitourinary Disorders: No - PSYCHIATRIC Hx Substance Use: No - SURGICAL HISTORY Hx Surgeries: Yes Other/Comment: cardiac surgery. cerebral shunt. lung surgery - ANESTHESIA Hx Anesthesia: Yes Hx Anesthesia Reactions: No Meds Allergies/Adverse Reactions: Allergies Allergy/AdvReac Type Severity Reaction Status Date / Time No Known Allergies Allergy Verified 07/05/18 09:56 Physical Exam - Constitutional Appears: Non-toxic - Head Exam Head Exam: ATRAUMATIC - Eye Exam Eye Exam: EOMI. absent: Scleral icterus - ENT Exam ENT Exam: Mucous Membranes Moist - Respiratory Exam Respiratory Exam: Clear to Auscultation Bilateral, NORMAL BREATHING PATTERN - Cardiovascular Exam Cardiovascular Exam: REGULAR RHYTHM - GI/Abdominal Exam GI & Abdominal Exam: Normal Bowel Sounds, Soft. absent: Distended, Firm - Extremities Exam Additional comments: Left Lower Extremity Vascular: DP and PT 1/4, CFT < 3 seconds, TG warm to warm, minimal edema to the dorsum of the left foot Ortho: Mild tenderness on palpation to the surgical site, left 4th digit amputation site noted open at this time Neuro: Gross sensation intact, protective sensation diminished Derm: left 4th digit amputation noted with a plantar incision with packing intact, minimal sero-sanguinous drainage noted, retention sutures intact and incision well coapted, no malodor, no signs of infection noted - Neurological Exam Neurological exam: Alert, Oriented x3 - Psychiatric Exam Psychiatric exam: Normal Affect, Normal Mood - Skin Skin Exam: Dry, Warm Results - Vital Signs Recent Vital Signs: Last Vital Signs Temp 98.6 F 07/16/18 04:52 Pulse 73 07/16/18 04:52 Resp 19 07/16/18 04:52 BP 155/98 H 07/16/18 04:52 Pulse Ox 96 07/16/18 04:52 - Labs Result Diagrams: 07/16/18 06:21 07/16/18 06:21 Labs: Laboratory Results - last 24 hr 07/15/18 07/15/18 07/15/18 09:46 11:06 15:42 WBC RBC Hgb Hct MCV MCH MCHC RDW Plt Count Sodium Potassium Chloride Carbon Dioxide Anion Gap BUN Creatinine Est GFR ( Amer) Est GFR (Non-Af Amer) POC Glucose (mg/dL) 369 H 363 H Random Glucose Calcium Total Bilirubin AST ALT Alkaline Phosphatase Total Protein Albumin Globulin Albumin/Globulin Ratio Vancomycin Trough < 5.0 L 07/15/18 07/16/18 07/16/18 22:08 05:30 06:21 WBC 10.2 RBC 3.22 L Hgb 10.4 L Hct 30.4 L MCV 94.2 H MCH 32.4 H MCHC 34.4 RDW 12.6 Plt Count 547 H Sodium Potassium Chloride Carbon Dioxide Anion Gap BUN Creatinine Est GFR ( Amer) Est GFR (Non-Af Amer) POC Glucose (mg/dL) 254 H 321 H Random Glucose Calcium Total Bilirubin AST ALT Alkaline Phosphatase Total Protein Albumin Globulin Albumin/Globulin Ratio Vancomycin Trough 07/16/18 06:21 WBC RBC Hgb Hct MCV MCH MCHC RDW Plt Count Sodium 135 Potassium 4.6 Chloride 94 L Carbon Dioxide 27 Anion Gap 19 BUN 31 H Creatinine 2.0 H Est GFR ( Amer) 43 Est GFR (Non-Af Amer) 36 POC Glucose (mg/dL) Random Glucose 331 H Calcium 8.7 Total Bilirubin 0.5 AST 99 H ALT 112 H Alkaline Phosphatase 191 H Total Protein 7.1 Albumin 3.3 L Globulin 3.8 Albumin/Globulin Ratio 0.9 L Vancomycin Trough Assessment & Plan - Assessment and Plan (Free Text) Assessment: 48M with pmhx of HTN, DM, HLD, CVA seen and evaluated preoperatively for left foot delayed primary wound closure secondary to fourth ray partial amputation 07/12 Plan: Pt was seen and examined at bedside Pt NPO status was confirmed All pre-op testing and clearance in chart Pt has exhausted all conservative treatment at this time and is opting for surgical intervention Pt was explained procedure and post-operative course All pt's questions were answered to satisfaction No guarantees were made Pt understands all risks, benefits and complications of procedure Pt will follow-up with Dr. Deleon as outpatient upon discharge Will continue to follow in house - Date & Time Date: 07/16/18 Time: 07:36
[2018-07-16] MEDS ORDERED: Lidocaine 1% 5ml Abboject ONE (07:36)
--- NOTE | 2018-07-16 07:37 | CP.PCM.PCO ---
Physician Communication Note - Physician Communication Note Physician Communication Note: N0 change from H&P on 07/08/18 except no fever and less pain to foot.
[2018-07-16] MEDS: Insulin Lispro (humaLOG) 100 Units/ml Inj SC SCH ×7 (07:40→22:33)
[2018-07-16] MEDS ORDERED: NAFCILLIN IM ONE (08:25)
[2018-07-16] MEDS ORDERED: Vancomycin 1 g Inj IVPB ONE (08:48)
[2018-07-16] MEDS ORDERED: Oxycodone/Acetaminophen 5/325 mg Tab PO PRN (09:44)
--- NOTE | 2018-07-16 09:48 | PCM.SURG1 ---
Surgeon's Initial Post Op Note - Surgeon's Notes Surgeon: Dr. Deleon DPM Robotics Technologist: Dr. Mitchell PGY1 Type of Anesthesia: IV Sedation, Local Anesthesia Administered By: Natanael Pre-Operative Diagnosis: Continued closure of wound after incision and drainage procedure as well as amputation of left fourth digit and metatarsal head Operative Findings: see dictation. 3-0 prolene, 1" packing. 15cc 0.5% marcained plain and 2% lidocaine plain Post-Operative Diagnosis: same Operation Performed: Secondary wound closure of previous amputation and incisoin and drainage site Specimen/Specimens Removed: n/a Estimated Blood Loss: EBL {In ML}: 2 Blood Products Given: N/A Drains Used: No Drains Post-Op Condition: Good Date of Surgery/Procedure: 07/16/18 Time of Surgery/Procedure: 09:47
[2018-07-16] MEDS ORDERED: Sodium Chloride 0.9% 1,000 ML IV ONE (09:52)
--- NOTE | 2018-07-16 10:14 | CP.PCM.PN ---
Subjective - Date & Time of Evaluation Date of Evaluation: 07/16/18 Time of Evaluation: 10:14 - Subjective Subjective: ID Note- Patient seen and examined today Pt. s/p left foot wound closure by podiatry today. denies any fever or chills. Objective - Vital Signs/Intake and Output Vital Signs (last 24 hours): Temp Pulse Resp BP Pulse Ox 96 F L 97 H 20 131/86 98 07/16/18 09:36 07/16/18 09:36 07/16/18 09:36 07/16/18 09:36 07/16/18 09:36 Intake and Output: 07/16/18 07/16/18 06:59 18:59 Intake Total 100 Balance 100 - Medications Medications: Current Medications Acetaminophen (Tylenol 325mg Tab) 650 mg PO Q4 PRN PRN Reason: Fever >101.0 F Last Admin: 07/12/18 23:52 Dose: 650 mg Amlodipine Besylate (Norvasc) 10 mg PO DAILY [facility] Last Admin: 07/16/18 07:46 Dose: 10 mg Aspirin (Ecotrin) 81 mg PO DAILY [facility] Last Admin: 07/15/18 08:23 Dose: 81 mg Atorvastatin Calcium (Lipitor) 20 mg PO DAILY [facility] Last Admin: 07/15/18 08:27 Dose: 20 mg Dextrose (Dextrose 50% Inj) 0 ml IV STAT PRN; Protocol PRN Reason: Hypoglycemia Protocol Dextrose (Glutose 15) 0 gm PO ONCE PRN; Protocol PRN Reason: Hypoglycemia Protocol Glipizide (Glucotrol Xl) 10 mg PO DAILY [facility] Last Admin: 07/15/18 08:24 Dose: 10 mg Glucagon (Glucagen Diagnostic Kit) 0 mg IM STAT PRN; Protocol PRN Reason: Hypoglycemia Protocol Heparin Sodium (Porcine) (Heparin) 5,000 units SC Q8 [facility]; Protocol Last Admin: 07/15/18 08:24 Dose: 5,000 units Hydromorphone HCl (Dilaudid) 1 mg IVP Q4 PRN PRN Reason: Pain, severe (8-10) Last Admin: 07/16/18 05:35 Dose: 1 mg Nafcillin Sodium 1 gm/ Sodium (Chloride) 100 mls @ 100 mls/hr IVPB Q8 [facility]; Protocol Last Admin: 07/16/18 00:52 Dose: 100 mls/hr Vancomycin HCl 1 gm/ Sodium (Chloride) 250 mls @ 166.667 mls/hr IVPB QOTHERDAY [facility]; Protocol Last Admin: 07/15/18 10:24 Dose: 166.667 mls/hr Sodium Chloride (Sodium Chloride 0.9%) 1,000 mls @ 75 mls/hr IV .[id number] [facility] Last Admin: 07/16/18 00:45 Dose: Not Given Sodium Chloride (Sodium Chloride 0.9%) 1,000 mls @ 0 mls/hr IV .Q0M [facility] Stop: 07/17/18 06:35 Sodium Chloride (Sodium Chloride 0.9%) 1,000 mls @ 100 mls/hr IV .Q10H [facility] Insulin Detemir (Levemir) 50 units SC HS [facility] Last Admin: 07/15/18 23:03 Dose: 50 u Insulin Human Lispro (Humalog) 10 units SC TIDAC [facility] Last Admin: 07/15/18 16:23 Dose: 10 units Insulin Human Lispro (Humalog) 0 units SC ACHS [facility]; Protocol Last Admin: 07/16/18 07:40 Dose: 6 units Lisinopril (Zestril) 40 mg PO DAILY [facility] Last Admin: 07/16/18 07:46 Dose: 40 mg Multivitamins/Minerals (Therapeutic-M Tab) 1 tab PO DAILY [facility] Last Admin: 07/15/18 08:29 Dose: 1 tab Mupirocin (Bactroban Ointment) 1 applic TOP BID [facility] Last Admin: 07/15/18 16:21 Dose: 1 applic Nffmp-9-[id number] Ethyl Esters (Lovaza) 1 gm PO DAILY [facility] Last Admin: 07/15/18 08:27 Dose: 1 gm Oxycodone HCl (Oxycodone Immediate Release Tab) 5 mg PO Q6 PRN PRN Reason: Pain, moderate (4-7) Oxycodone/Acetaminophen (Percocet 5/325 Mg Tab) 1 tab PO Q4 PRN PRN Reason: Pain, moderate (4-7) Stop: 07/19/18 09:45 Oxycodone/Acetaminophen (Percocet 5/325 Mg Tab) 2 tab PO Q4 PRN PRN Reason: Pain, severe (8-10) Stop: 07/19/18 09:45 Pantoprazole Sodium (Protonix Ec Tab) 40 mg PO DAILY [facility] Last Admin: 07/15/18 08:28 Dose: 40 mg Pioglitazone HCl (Actos) 15 mg PO DAILY [facility] Last Admin: 07/15/18 08:21 Dose: 15 mg Silver Sulfadiazine (Silvadene 1% 20 Gm) 0 ea TOP DAILY [facility] Last Admin: 07/15/18 08:29 Dose: Not Given Zolpidem Tartrate (Ambien) 5 mg PO HS PRN PRN Reason: Sleep Last Admin: 07/15/18 22:11 Dose: 5 mg - Labs Labs: - Additional Findings Additional findings: - Constitutional Appears: No Acute Distress - Head Exam Head Exam: ATRAUMATIC - Eye Exam Eye Exam: EOMI, PERRL - ENT Exam ENT Exam: Normal Oropharynx - Neck Exam Neck exam: Positive for: Full Rom - Respiratory Exam Respiratory Exam: Clear to Auscultation Bilateral, NORMAL BREATHING PATTERN - Cardiovascular Exam Cardiovascular Exam: RRR, +S1, +S2 - GI/Abdominal Exam GI & Abdominal Exam: Normal Bowel Sounds, Soft Additional comments: NT, ND -EXT- left foot fourth toe amputation site wrapped in gauze , dressing clean - Neurological Exam Neurological exam: Alert, Oriented x 3 Laboratory Results - last 72 hr 07/13/18 07/13/18 07/14/18 16:10 22:05 01:52 WBC RBC Hgb Hct MCV MCH MCHC RDW Plt Count Sodium Potassium Chloride Carbon Dioxide Anion Gap BUN Creatinine Est GFR ( Amer) Est GFR (Non-Af Amer) POC Glucose (mg/dL) 243 H 347 H 373 H Random Glucose Calcium Phosphorus Magnesium Total Bilirubin AST ALT Alkaline Phosphatase Total Protein Albumin Globulin Albumin/Globulin Ratio Vancomycin Trough 07/14/18 07/14/18 07/14/18 06:05 06:05 06:08 WBC 13.0 H RBC 3.49 L Hgb 11.2 L Hct 33.2 L MCV 95.3 H MCH 32.1 H MCHC 33.6 RDW 12.9 Plt Count 466 H Sodium 133 Potassium 4.6 Chloride 94 L Carbon Dioxide 30 Anion Gap 14 BUN 35 H Creatinine 2.2 H Est GFR ( Amer) 39 Est GFR (Non-Af Amer) 32 POC Glucose (mg/dL) 272 H Random Glucose 307 H Calcium 9.1 Phosphorus 3.9 Magnesium 1.9 Total Bilirubin 0.4 AST 101 H ALT 94 H Alkaline Phosphatase 237 H Total Protein 7.3 Albumin 3.4 L Globulin 3.9 Albumin/Globulin Ratio 0.9 L Vancomycin Trough 07/14/18 07/14/18 07/14/18 11:32 15:56 21:25 WBC RBC Hgb Hct MCV MCH MCHC RDW Plt Count Sodium Potassium Chloride Carbon Dioxide Anion Gap BUN Creatinine Est GFR ( Amer) Est GFR (Non-Af Amer) POC Glucose (mg/dL) 377 H 352 H 270 H Random Glucose Calcium Phosphorus Magnesium Total Bilirubin AST ALT Alkaline Phosphatase Total Protein Albumin Globulin Albumin/Globulin Ratio Vancomycin Trough 07/15/18 07/15/18 07/15/18 00:38 02:31 05:45 WBC RBC Hgb Hct MCV MCH MCHC RDW Plt Count Sodium Potassium Chloride Carbon Dioxide Anion Gap BUN Creatinine Est GFR ( Amer) Est GFR (Non-Af Amer) POC Glucose (mg/dL) 363 H 305 H 251 H Random Glucose Calcium Phosphorus Magnesium Total Bilirubin AST ALT Alkaline Phosphatase Total Protein Albumin Globulin Albumin/Globulin Ratio Vancomycin Trough 07/15/18 07/15/18 07/15/18 06:00 06:00 09:46 WBC 10.2 RBC 3.33 L Hgb 10.5 L Hct 31.4 L MCV 94.5 H MCH 31.6 H MCHC 33.5 RDW 12.6 Plt Count 512 H Sodium 132 Potassium 5.4 H Chloride 93 L Carbon Dioxide 29 Anion Gap 15 BUN 36 H Creatinine 2.0 H Est GFR ( Amer) 43 Est GFR (Non-Af Amer) 36 POC Glucose (mg/dL) Random Glucose 323 H Calcium 9.0 Phosphorus Magnesium Total Bilirubin AST ALT Alkaline Phosphatase Total Protein Albumin Globulin Albumin/Globulin Ratio Vancomycin Trough < 5.0 L 07/15/18 07/15/18 07/15/18 11:06 15:42 22:08 WBC RBC Hgb Hct MCV MCH MCHC RDW Plt Count Sodium Potassium Chloride Carbon Dioxide Anion Gap BUN Creatinine Est GFR ( Amer) Est GFR (Non-Af Amer) POC Glucose (mg/dL) 369 H 363 H 254 H Random Glucose Calcium Phosphorus Magnesium Total Bilirubin AST ALT Alkaline Phosphatase Total Protein Albumin Globulin Albumin/Globulin Ratio Vancomycin Trough 07/16/18 07/16/18 07/16/18 05:30 06:21 06:21 WBC 10.2 RBC 3.22 L Hgb 10.4 L Hct 30.4 L MCV 94.2 H MCH 32.4 H MCHC 34.4 RDW 12.6 Plt Count 547 H Sodium 135 Potassium 4.6 Chloride 94 L Carbon Dioxide 27 Anion Gap 19 BUN 31 H Creatinine 2.0 H Est GFR ( Amer) 43 Est GFR (Non-Af Amer) 36 POC Glucose (mg/dL) 321 H Random Glucose 331 H Calcium 8.7 Phosphorus Magnesium Total Bilirubin 0.5 AST 99 H ALT 112 H Alkaline Phosphatase 191 H Total Protein 7.1 Albumin 3.3 L Globulin 3.8 Albumin/Globulin Ratio 0.9 L Vancomycin Trough 07/16/18 07/16/18 07/16/18 08:28 09:40 11:52 WBC RBC Hgb Hct MCV MCH MCHC RDW Plt Count Sodium Potassium Chloride Carbon Dioxide Anion Gap BUN Creatinine Est GFR ( Amer) Est GFR (Non-Af Amer) POC Glucose (mg/dL) 308 H 266 H 283 H Random Glucose Calcium Phosphorus Magnesium Total Bilirubin AST ALT Alkaline Phosphatase Total Protein Albumin Globulin Albumin/Globulin Ratio Vancomycin Trough Microbiology 07/12/18 05:00 Abscess - Foot-Left Gram Stain - Final 07/12/18 05:00 Abscess - Foot-Left Wound Culture - Final Beta Hemolytic Strep Group B 07/12/18 05:00 Abscess - Foot-Left Gram Stain - Final 07/12/18 05:00 Abscess - Foot-Left Wound Culture - Final Beta Hemolytic Strep Group B 07/09/18 12:15 Blood-Venous Blood Culture - Final NO GROWTH AFTER 5 DAYS 07/09/18 12:15 Blood-Venous Gram Stain - Final TEST NOT PERFORMED 07/09/18 12:00 Blood-Venous Blood Culture - Final NO GROWTH AFTER 5 DAYS 07/09/18 12:00 Blood-Venous Gram Stain - Final TEST NOT PERFORMED 07/08/18 19:16 Toe Gram Stain - Final 07/08/18 19:16 Toe Wound Culture - Final Beta Hemolytic Strep Group B Staphylococcus Aureus 07/07/18 00:02 Blood-Venous Blood Culture - Final NO GROWTH AFTER 5 DAYS 07/07/18 00:02 Blood-Venous Gram Stain - Final TEST NOT PERFORMED 07/08/18 00:17 Blood-Venous Blood Culture - Final NO GROWTH AFTER 5 DAYS 07/08/18 00:17 Blood-Venous Gram Stain - Final TEST NOT PERFORMED 07/08/18 19:16 Urine,Clean Catch Urine Culture - Final No Growth (<1,000 CFU/ML) Assessment and Plan (1) Cellulitis of left foot Status: Acute (2) Leukocytosis Status: Acute - Assessment and Plan (Free Text) Assessment: 48 year old male with DM II was admitted with left foot fourth digit region wi th open lesion and surrounding cellulitis. found to have Om of left fourth toe POD #4 incision and drainage with amputation of the 4th digit + 4th metatarsal head and wound closure today by podiatry. afebrile past 72 hours. leukocytosis resolved. HIGH ESR wound cx- Strep group B and MSSA OR wound cx- beta hemolytic strep x 2 path report- acute OM MRI report-Possible Om of left fourth metatarsal head. blood cx- neg x 4 elevated LFTs Plan- muhammad completed 8 days of IV nafcillin for MSSA in initial wound cx. advise to d/c nafcillin today as the OR cx is beta hemolytic strep only ( sens to vanco ) and also increased LFTs perhaps secondary to nafcillin. advise to continue with IV vancomycin but redose to 750 mg BID but to be given every other day for total of 30 doses. check trough once a week and keep between 10-15. check creatinine once a week as well. also pt. advised if he notices any change in his hearing to notify his PMD . All above d/w patient and he verbalizes full understanding of all above and agrees with above plan of care. All above also d/w [employer] Leeanna Stahl taking care of patient today in detail.
[2018-07-16] MEDS: Mupirocin 2% Oint 1GM UD TOP SCH ×2 (12:08→16:28)
[2018-07-16] MEDS: GlipiZIDE 10 mg SR Tab PO SCH (12:09)
[2018-07-16] MEDS: Omega-3-Acid Ethyl Esters 1 GM Cap PO SCH (12:10)
[2018-07-16] MEDS: Silver Sulfadiazine 1% Cream (20 gm) TOP SCH (12:12)
[2018-07-16] MEDS: Pantoprazole 40 mg EC Tab PO SCH (12:12)
[2018-07-16] MEDS: Multivitamin With Minerals Tab PO SCH (12:13)
[2018-07-16 12:50] VITALS: BMI 31.6
--- NOTE | 2018-07-16 13:53 | CP.PCM.PCO ---
Assessment & Plan - Assessment and Plan (Free Text) Assessment: pt. s/p L foot delayed closure feels well; denies fever, chills n/v/d all labs, cx results noted and DW / pt will require 4 more weeks of Vancomycin 750 mg ivpb q 12 hours every other day PICC line today continue to monitor bmp; bun / cr 31/2.0 cont. PT discussed plan w/ pt.
--- NOTE | 2018-07-16 19:09 | CP.PCM.PN ---
Subjective - Date & Time of Evaluation Date of Evaluation: 07/16/18 Time of Evaluation: 18:35 Objective - Vital Signs/Intake and Output Vital Signs (last 24 hours): Temp Pulse Resp BP Pulse Ox 99.4 F 84 18 146/87 96 07/16/18 15:56 07/16/18 15:56 07/16/18 15:56 07/16/18 15:56 07/16/18 15:56 Intake and Output: 07/16/18 07/17/18 18:59 06:59 Intake Total 200 Balance 200 - Medications Medications: Current Medications Acetaminophen (Tylenol 325mg Tab) 650 mg PO Q4 PRN PRN Reason: Fever >101.0 F Last Admin: 07/12/18 23:52 Dose: 650 mg Amlodipine Besylate (Norvasc) 10 mg PO DAILY [facility] Last Admin: 07/16/18 12:12 Dose: Not Given Aspirin (Ecotrin) 81 mg PO DAILY [facility] Last Admin: 07/15/18 08:23 Dose: 81 mg Atorvastatin Calcium (Lipitor) 20 mg PO DAILY [facility] Last Admin: 07/16/18 12:10 Dose: Not Given Dextrose (Dextrose 50% Inj) 0 ml IV STAT PRN; Protocol PRN Reason: Hypoglycemia Protocol Dextrose (Glutose 15) 0 gm PO ONCE PRN; Protocol PRN Reason: Hypoglycemia Protocol Glipizide (Glucotrol Xl) 10 mg PO DAILY [facility] Last Admin: 07/16/18 12:09 Dose: Not Given Glucagon (Glucagen Diagnostic Kit) 0 mg IM STAT PRN; Protocol PRN Reason: Hypoglycemia Protocol Heparin Sodium (Porcine) (Heparin) 5,000 units SC Q8 [facility]; Protocol Last Admin: 07/15/18 08:24 Dose: 5,000 units Hydromorphone HCl (Dilaudid) 1 mg IVP Q4 PRN PRN Reason: Pain, severe (8-10) Last Admin: 07/16/18 16:31 Dose: 1 mg Sodium Chloride (Sodium Chloride 0.9%) 1,000 mls @ 75 mls/hr IV .[id number] [facility] Last Admin: 07/16/18 16:39 Dose: 75 mls/hr Sodium Chloride (Sodium Chloride 0.9%) 1,000 mls @ 0 mls/hr IV .Q0M [facility] Stop: 07/17/18 06:35 Sodium Chloride (Sodium Chloride 0.9%) 1,000 mls @ 100 mls/hr IV .Q10H [facility] Last Admin: 07/16/18 12:13 Dose: Not Given Vancomycin HCl 750 mg/ Sodium (Chloride) 250 mls @ 250 mls/hr IVPB QOD@0 900,2100 [facility]; Protocol Insulin Detemir (Levemir) 50 units SC HS [facility] Last Admin: 07/15/18 23:03 Dose: 50 u Insulin Human Lispro (Humalog) 10 units SC TIDAC [facility] Last Admin: 07/16/18 16:29 Dose: 10 units Insulin Human Lispro (Humalog) 0 units SC ACHS [facility]; Protocol Last Admin: 07/16/18 16:30 Dose: 8 units Lisinopril (Zestril) 40 mg PO DAILY [facility] Last Admin: 07/16/18 12:13 Dose: Not Given Multivitamins/Minerals (Therapeutic-M Tab) 1 tab PO DAILY [facility] Last Admin: 07/16/18 12:13 Dose: Not Given Mupirocin (Bactroban Ointment) 1 applic TOP BID [facility] Last Admin: 07/16/18 16:28 Dose: Not Given Ehyap-9-Qwlz Ethyl Esters (Lovaza) 1 gm PO DAILY [facility] Last Admin: 07/16/18 12:10 Dose: Not Given Oxycodone HCl (Oxycodone Immediate Release Tab) 5 mg PO Q6 PRN PRN Reason: Pain, moderate (4-7) Oxycodone/Acetaminophen (Percocet 5/325 Mg Tab) 1 tab PO Q4 PRN PRN Reason: Pain, moderate (4-7) Stop: 07/19/18 09:45 Oxycodone/Acetaminophen (Percocet 5/325 Mg Tab) 2 tab PO Q4 PRN PRN Reason: Pain, severe (8-10) Stop: 07/19/18 09:45 Pantoprazole Sodium (Protonix Ec Tab) 40 mg PO DAILY [facility] Last Admin: 07/16/18 12:12 Dose: Not Given Pioglitazone HCl (Actos) 15 mg PO DAILY [facility] Last Admin: 07/16/18 12:08 Dose: Not Given Silver Sulfadiazine (Silvadene 1% 20 Gm) 0 ea TOP DAILY [facility] Last Admin: 07/16/18 12:12 Dose: Not Given Zolpidem Tartrate (Ambien) 5 mg PO HS PRN PRN Reason: Sleep Last Admin: 07/15/18 22:11 Dose: 5 mg - Labs Labs: 07/16/18 06:21 07/16/18 06:21 PT 13.9 Seconds (9.8-13.1) H 07/12/18 09:07 INR 1.2 07/12/18 09:07 APTT 43.1 Seconds (25.6-37.1) H 07/12/18 09:07 Assessment and Plan (1) Sepsis Status: Acute (2) Foot ulcer, left Status: Acute (3) Diabetes mellitus with hyperglycemia Status: Acute (4) CAD (coronary artery disease) Status: Acute (5) H/O coronary artery bypass surgery Status: Acute
[2018-07-16] MEDS: Insulin Detemir 100 Units/ml Inj SC SCH (22:36)
[2018-07-17] MEDS: Sodium Chloride 0.9% 1,000 ML IV SCH ×2 (05:45→06:22)
[2018-07-17 07:25] LABS: HEMOGLOBIN 10.5 g/dL (12.0-18.0); MEAN CELL VOLUME 93.3 fl (80.0-94.0); MEAN CORPUSCULAR HEMOGLOBIN 31.3 pg (27.0-31.0); MEAN CORPUSCULAR HGB CONC 33.6 g/dL (33.0-37.0); RBC 3.36 Mil/uL (4.40-5.90); RED CELL DISTRIBUTION WIDTH 12.6 % (11.5-14.5); WHITE BLOOD COUNT 9.8 K/uL (4.8-10.8)
[2018-07-17 07:45] LABS: CALCIUM 8.6 mg/dL (8.4-10.2)
[2018-07-17] MEDS: GlipiZIDE 10 mg SR Tab PO SCH (09:25)
[2018-07-17] MEDS: Insulin Lispro (humaLOG) 100 Units/ml Inj SC SCH ×7 (09:26→22:55)
[2018-07-17] MEDS: Omega-3-Acid Ethyl Esters 1 GM Cap PO SCH (09:29)
[2018-07-17] MEDS: Pantoprazole 40 mg EC Tab PO SCH (09:30)
[2018-07-17] MEDS: Multivitamin With Minerals Tab PO SCH (09:30)
--- NOTE | 2018-07-17 14:29 | CP.PCM.PN ---
Subjective - Date & Time of Evaluation Date of Evaluation: 07/17/18 Time of Evaluation: 14:26 - Subjective Subjective: Podiatry progress note for Dr. Deleon, 48 y/o male patient seen and evaluated at bedside POD1 delayed primary cosure of the left foot. Patient seen to be resting comfortably and reports mild pain to left foot since the surgery. Patient states he was able to sleep through the night. Denies n/v/sob/cp and has no other acute complaints at this time. Patient reports working with physical therapy to get in and out of bed. Objective - Vital Signs/Intake and Output Vital Signs (last 24 hours): Temp Pulse Resp BP Pulse Ox 98.5 F 73 20 154/98 H 96 07/17/18 08:18 07/17/18 09:31 07/17/18 08:18 07/17/18 09:31 07/17/18 08:18 - Medications Medications: Current Medications Acetaminophen (Tylenol 325mg Tab) 650 mg PO Q4 PRN PRN Reason: Fever >101.0 F Last Admin: 07/12/18 23:52 Dose: 650 mg Amlodipine Besylate (Norvasc) 10 mg PO DAILY [facility] Last Admin: 07/17/18 09:29 Dose: 10 mg Aspirin (Ecotrin) 81 mg PO DAILY [facility] Last Admin: 07/15/18 08:23 Dose: 81 mg Atorvastatin Calcium (Lipitor) 20 mg PO DAILY [facility] Last Admin: 07/17/18 09:29 Dose: 20 mg Dextrose (Dextrose 50% Inj) 0 ml IV STAT PRN; Protocol PRN Reason: Hypoglycemia Protocol Dextrose (Glutose 15) 0 gm PO ONCE PRN; Protocol PRN Reason: Hypoglycemia Protocol Glipizide (Glucotrol Xl) 10 mg PO DAILY [facility] Last Admin: 07/17/18 09:25 Dose: 10 mg Glucagon (Glucagen Diagnostic Kit) 0 mg IM STAT PRN; Protocol PRN Reason: Hypoglycemia Protocol Heparin Sodium (Porcine) (Heparin) 5,000 units SC Q8 [facility]; Protocol Last Admin: 07/15/18 08:24 Dose: 5,000 units Hydromorphone HCl (Dilaudid) 1 mg IVP Q4 PRN PRN Reason: Pain, severe (8-10) Last Admin: 07/17/18 13:48 Dose: 1 mg Sodium Chloride (Sodium Chloride 0.9%) 1,000 mls @ 75 mls/hr IV .[id number] [facility] Last Admin: 07/16/18 16:39 Dose: 75 mls/hr Sodium Chloride (Sodium Chloride 0.9%) 1,000 mls @ 100 mls/hr IV .Q10H [facility] Last Admin: 07/17/18 06:22 Dose: 100 mls/hr Vancomycin HCl 750 mg/ Sodium (Chloride) 250 mls @ 250 mls/hr IVPB QOD@0900,2100 [facility]; Protocol Last Admin: 07/17/18 09:30 Dose: 250 mls/hr Insulin Detemir (Levemir) 50 units SC HS [facility] Last Admin: 07/16/18 22:36 Dose: 50 u Insulin Human Lispro (Humalog) 10 units SC TIDAC [facility] Last Admin: 07/17/18 13:43 Dose: 10 units Insulin Human Lispro (Humalog) 0 units SC ACHS [facility]; Protocol Last Admin: 07/17/18 13:44 Dose: 6 units Lisinopril (Zestril) 40 mg PO DAILY [facility] Last Admin: 07/17/18 09:31 Dose: 40 mg Multivitamins/Minerals (Therapeutic-M Tab) 1 tab PO DAILY [facility] Last Admin: 07/17/18 09:30 Dose: 1 tab Mupirocin (Bactroban Ointment) 1 applic TOP BID [facility] Last Admin: 07/16/18 16:28 Dose: Not Given Yzufd-9-Qygp Ethyl Esters (Lovaza) 1 gm PO DAILY [facility] Last Admin: 07/17/18 09:29 Dose: 1 gm Oxycodone HCl (Oxycodone Immediate Release Tab) 5 mg PO Q6 PRN PRN Reason: Pain, moderate (4-7) Oxycodone/Acetaminophen (Percocet 5/325 Mg Tab) 1 tab PO Q4 PRN PRN Reason: Pain, moderate (4-7) Stop: 07/19/18 09:45 Oxycodone/Acetaminophen (Percocet 5/325 Mg Tab) 2 tab PO Q4 PRN PRN Reason: Pain, severe (8-10) Stop: 07/19/18 09:45 Pantoprazole Sodium (Protonix Ec Tab) 40 mg PO DAILY [facility] Last Admin: 07/17/18 09:30 Dose: 40 mg Pioglitazone HCl (Actos) 15 mg PO DAILY [facility] Last Admin: 07/17/18 09:25 Dose: 15 mg Silver Sulfadiazine (Silvadene 1% 20 Gm) 0 ea TOP DAILY [facility] Last Admin: 07/16/18 12:12 Dose: Not Given Zolpidem Tartrate (Ambien) 5 mg PO HS PRN PRN Reason: Sleep Last Admin: 07/16/18 23:08 Dose: 5 mg - Labs Labs: 07/17/18 05:30 07/17/18 05:30 PT 13.9 Seconds (9.8-13.1) H 07/12/18 09:07 INR 1.2 07/12/18 09:07 APTT 43.1 Seconds (25.6-37.1) H 07/12/18 09:07 - Constitutional Appears: Well, Non-toxic - Head Exam Head Exam: ATRAUMATIC - Extremities Exam Additional comments: Left Lower Extremity Vascular: DP and PT 1/4, CFT < 3 seconds, TG warm to warm, minimal edema to the dorsum of the left foot Ortho: Mild tenderness on palpation to the surgical site, left 4th digit amputation site noted open at this time Neuro: Gross sensation intact, protective sensation diminished Derm: left 4th digit amputation noted with a plantar incision with packing intact, minimal sero-sanguinous drainage noted, retention sutures intact and incision well coapted, no malodor, no signs of infection noted Assessment and Plan - Assessment and Plan (Free Text) Assessment: 48 y/o male patient s/p left foot incision and drainage with amputation of fo urth digit and metatarsal head; site packed with 1 inch packing and to be closed primarily at a later time Plan: Patient seen and evaluated at bedside Plan discussed with Dr. Deleon Chart, labs and vitals reviewed- pending labs from today, febrile overnight, afebrile at this time L foot x-rays ordered; no evidence of OM, no soft tissue emphysema appreciated C/w IV abx; Nafcillin, vanco ID on board; appreciate recs Wound Cx from [facility] (taken 07/05): B hemolytic strep, Staph Aureus Left Foot MRI: osteomyelitis of left fourth metatarsal head Left Foot X-rays post surgery- amputation of the 4th digit and 4th met head noted OR Pathology and WCx- no growth after 24 hours Wound irrigated well, packing was advanced from plantar incision, wound dressed with 4X4, ABD, Kerlix Podiatry will continue to follow patient while in house
[2018-07-17] MEDS: Mupirocin 2% Oint 1GM UD TOP SCH (17:51)
[2018-07-17] MEDS: Silver Sulfadiazine 1% Cream (20 gm) TOP SCH (17:52)
[2018-07-17] MEDS: Insulin Detemir 100 Units/ml Inj SC SCH (22:57)
[2018-07-18] MEDS ORDERED: Insulin Lispro (humaLOG) 100 Units/ml Inj SC ONE (00:26)
[2018-07-18] MEDS: Sodium Chloride 0.9% 1,000 ML IV SCH ×2 (01:45→06:08)
[2018-07-18] MEDS: Insulin Lispro (humaLOG) 100 Units/ml Inj SC SCH ×7 (07:28→21:51)
[2018-07-18] MEDS: Multivitamin With Minerals Tab PO SCH (08:44)
[2018-07-18] MEDS: Pantoprazole 40 mg EC Tab PO SCH (08:45)
[2018-07-18] MEDS: Omega-3-Acid Ethyl Esters 1 GM Cap PO SCH (08:45)
[2018-07-18] MEDS: GlipiZIDE 10 mg SR Tab PO SCH (08:46)
[2018-07-18] MEDS: Mupirocin 2% Oint 1GM UD TOP SCH ×2 (09:35→16:35)
[2018-07-18] MEDS: Silver Sulfadiazine 1% Cream (20 gm) TOP SCH (12:50)
--- NOTE | 2018-07-18 13:16 | CP.PCM.PN ---
Subjective - Date & Time of Evaluation Date of Evaluation: 07/18/18 Time of Evaluation: 13:14 - Subjective Subjective: Podiatry progress note for Dr. Deleon, 48 y/o male patient seen and evaluated at bedside POD2 delayed primary cosure of the left foot. Patient seen to be resting comfortably and reports mild pain to left foot since the surgery. Patient states he was able to sleep through the night. Denies n/v/sob/cp and has no other acute complaints at this time. Patient reports working with physical therapy to get in and out of bed. Objective - Vital Signs/Intake and Output Vital Signs (last 24 hours): Temp Pulse Resp BP Pulse Ox 97.9 F 85 20 149/96 H 97 07/18/18 08:21 07/18/18 08:51 07/18/18 08:21 07/18/18 08:51 07/18/18 08:21 - Medications Medications: Current Medications Acetaminophen (Tylenol 325mg Tab) 650 mg PO Q4 PRN PRN Reason: Fever >101.0 F Last Admin: 07/12/18 23:52 Dose: 650 mg Amlodipine Besylate (Norvasc) 10 mg PO DAILY [facility] Last Admin: 07/18/18 08:51 Dose: 10 mg Aspirin (Ecotrin) 81 mg PO DAILY [facility] Last Admin: 07/15/18 08:23 Dose: 81 mg Atorvastatin Calcium (Lipitor) 20 mg PO DAILY [facility] Last Admin: 07/18/18 08:47 Dose: 20 mg Dextrose (Dextrose 50% Inj) 0 ml IV STAT PRN; Protocol PRN Reason: Hypoglycemia Protocol Dextrose (Glutose 15) 0 gm PO ONCE PRN; Protocol PRN Reason: Hypoglycemia Protocol Glipizide (Glucotrol Xl) 10 mg PO DAILY [facility] Last Admin: 07/18/18 08:46 Dose: 10 mg Glucagon (Glucagen Diagnostic Kit) 0 mg IM STAT PRN; Protocol PRN Reason: Hypoglycemia Protocol Heparin Sodium (Porcine) (Heparin) 5,000 units SC Q8 [facility]; Protocol Last Admin: 07/15/18 08:24 Dose: 5,000 units Heparin Sodium (Porcine) (Heparin) 5,000 units SC Q8 [facility]; Protocol Last Admin: 07/18/18 08:47 Dose: 5,000 units Hydromorphone HCl (Dilaudid) 1 mg IVP Q4 PRN PRN Reason: Pain, severe (8-10) Last Admin: 07/18/18 13:02 Dose: 1 mg Sodium Chloride (Sodium Chloride 0.9%) 1,000 mls @ 75 mls/hr IV .[id number] [facility] Last Admin: 07/18/18 06:08 Dose: Not Given Sodium Chloride (Sodium Chloride 0.9%) 1,000 mls @ 100 mls/hr IV .Q10H [facility] Last Admin: 07/18/18 01:45 Dose: Not Given Vancomycin HCl 750 mg/ Sodium (Chloride) 250 mls @ 250 mls/hr IVPB QOD@0900,2100 [facility]; Protocol Last Admin: 07/17/18 20:30 Dose: 250 mls/hr Insulin Detemir (Levemir) 50 units SC HS [facility] Last Admin: 07/17/18 22:57 Dose: 50 u Insulin Human Lispro (Humalog) 10 units SC TIDAC [facility] Last Admin: 07/18/18 11:30 Dose: 10 units Insulin Human Lispro (Humalog) 0 units SC ACHS [facility]; Protocol Last Admin: 07/18/18 11:30 Dose: 4 units Lisinopril (Zestril) 40 mg PO DAILY [facility] Last Admin: 07/18/18 08:44 Dose: 40 mg Multivitamins/Minerals (Therapeutic-M Tab) 1 tab PO DAILY [facility] Last Admin: 07/18/18 08:44 Dose: 1 tab Mupirocin (Bactroban Ointment) 1 applic TOP BID [facility] Last Admin: 07/17/18 17:51 Dose: Not Given Awefm-1-Aoqq Ethyl Esters (Lovaza) 1 gm PO DAILY [facility] Last Admin: 07/18/18 08:45 Dose: 1 gm Oxycodone HCl (Oxycodone Immediate Release Tab) 5 mg PO Q6 PRN PRN Reason: Pain, moderate (4-7) Oxycodone/Acetaminophen (Percocet 5/325 Mg Tab) 1 tab PO Q4 PRN PRN Reason: Pain, moderate (4-7) Stop: 07/19/18 09:45 Oxycodone/Acetaminophen (Percocet 5/325 Mg Tab) 2 tab PO Q4 PRN PRN Reason: Pain, severe (8-10) Stop: 02/25/19 09:45 Pantoprazole Sodium (Protonix Ec Tab) 40 mg PO DAILY [facility] Last Admin: 07/18/18 08:45 Dose: 40 mg Pioglitazone HCl (Actos) 15 mg PO DAILY [facility] Last Admin: 07/18/18 08:44 Dose: 15 mg Silver Sulfadiazine (Silvadene 1% 20 Gm) 0 ea TOP DAILY [facility] Last Admin: 07/18/18 12:50 Dose: Not Given Zolpidem Tartrate (Ambien) 5 mg PO HS PRN PRN Reason: Sleep Last Admin: 07/17/18 23:01 Dose: 5 mg - Labs Labs: 07/17/18 05:30 07/17/18 05:30 PT 13.9 Seconds (9.8-13.1) H 07/12/18 09:07 INR 1.2 07/12/18 09:07 APTT 43.1 Seconds (25.6-37.1) H 07/12/18 09:07 - Constitutional Appears: Well, Non-toxic - Head Exam Head Exam: ATRAUMATIC - Extremities Exam Additional comments: Left Lower Extremity Vascular: DP and PT 1/4, CFT < 3 seconds, TG warm to warm, minimal edema to the dorsum of the left foot Ortho: Mild tenderness on palpation to the surgical site, left 4th digit amputation site noted open at this time Neuro: Gross sensation intact, protective sensation diminished Derm: left 4th digit amputation noted with a plantar incision with packing intact at the plantar proximal aspect of the site, sutures intact and incision well coapted, no wound dehiscence noted, no malodor, no signs of infection noted - Neurological Exam Neurological Exam: Alert, Awake, Oriented x3 Assessment and Plan - Assessment and Plan (Free Text) Assessment: 48 y/o male patient 2 days s/p left foot primary wound closure Plan: Patient seen and evaluated at bedside Plan discussed with Dr. Deleon Chart, labs and vitals reviewed- pending labs from today, febrile overnight, afebrile at this time L foot x-rays ordered; no evidence of OM, no soft tissue emphysema appreciated C/w IV abx; Nafcillin, vanco ID on board; appreciate recs Wound Cx from [facility] (taken 07/05): B hemolytic strep, Staph Aureus Left Foot MRI: osteomyelitis of left fourth metatarsal head Left Foot X-rays post surgery- amputation of the 4th digit and 4th met head noted OR Pathology and WCx-beta hemolytic group strep b acute osteomyelitis of the fourth met head and digit site cleansed with saline and dressed with 4X4, ABD, Kerlix continue physical therapy, strict NWB to the LLE f/u on CBC with diff Podiatry will continue to follow patient while in house
--- NOTE | 2018-07-18 19:01 | CP.PCM.PN ---
Subjective - Date & Time of Evaluation Date of Evaluation: 07/17/18 Objective - Vital Signs/Intake and Output Vital Signs (last 24 hours): Temp Pulse Resp BP Pulse Ox 97.6 F 97 H 20 129/90 95 07/18/18 16:09 07/18/18 16:09 07/18/18 16:09 07/18/18 16:09 07/18/18 16:09 - Medications Medications: Current Medications Acetaminophen (Tylenol 325mg Tab) 650 mg PO Q4 PRN PRN Reason: Fever >101.0 F Last Admin: 07/12/18 23:52 Dose: 650 mg Amlodipine Besylate (Norvasc) 10 mg PO DAILY [facility] Last Admin: 07/18/18 08:51 Dose: 10 mg Aspirin (Ecotrin) 81 mg PO DAILY [facility] Last Admin: 07/15/18 08:23 Dose: 81 mg Atorvastatin Calcium (Lipitor) 20 mg PO DAILY [facility] Last Admin: 07/18/18 08:47 Dose: 20 mg Dextrose (Dextrose 50% Inj) 0 ml IV STAT PRN; Protocol PRN Reason: Hypoglycemia Protocol Dextrose (Glutose 15) 0 gm PO ONCE PRN; Protocol PRN Reason: Hypoglycemia Protocol Glipizide (Glucotrol Xl) 10 mg PO DAILY [facility] Last Admin: 07/18/18 08:46 Dose: 10 mg Glucagon (Glucagen Diagnostic Kit) 0 mg IM STAT PRN; Protocol PRN Reason: Hypoglycemia Protocol Heparin Sodium (Porcine) (Heparin) 5,000 units SC Q8 [facility]; Protocol Last Admin: 07/15/18 08:24 Dose: 5,000 units Heparin Sodium (Porcine) (Heparin) 5,000 units SC Q8 [facility]; Protocol Last Admin: 07/18/18 16:37 Dose: 5,000 units Sodium Chloride (Sodium Chloride 0.9%) 1,000 mls @ 75 mls/hr IV .[id number] [facility] Last Admin: 07/18/18 06:08 Dose: Not Given Sodium Chloride (Sodium Chloride 0.9%) 1,000 mls @ 100 mls/hr IV .Q10H [facility] Last Admin: 07/18/18 01:45 Dose: Not Given Vancomycin HCl 750 mg/ Sodium (Chloride) 250 mls @ 250 mls/hr IVPB QOD@0900,2100 [facility]; Protocol Last Admin: 07/17/18 20:30 Dose: 250 mls/hr Insulin Detemir (Levemir) 50 units SC HS [facility] Last Admin: 07/17/18 22:57 Dose: 50 u Insulin Human Lispro (Humalog) 10 units SC TIDAC [facility] Last Admin: 07/18/18 16:37 Dose: 10 units Insulin Human Lispro (Humalog) 0 units SC ACHS [facility]; Protocol Last Admin: 07/18/18 16:38 Dose: 6 units Lisinopril (Zestril) 40 mg PO DAILY [facility] Last Admin: 07/18/18 08:44 Dose: 40 mg Multivitamins/Minerals (Therapeutic-M Tab) 1 tab PO DAILY [facility] Last Admin: 07/18/18 08:44 Dose: 1 tab Mupirocin (Bactroban Ointment) 1 applic TOP BID [facility] Last Admin: 07/18/18 16:35 Dose: Not Given Inmwq-9-Duyz Ethyl Esters (Lovaza) 1 gm PO DAILY [facility] Last Admin: 07/18/18 08:45 Dose: 1 gm Oxycodone/Acetaminophen (Percocet 5/325 Mg Tab) 1 tab PO Q4 PRN PRN Reason: Pain, moderate (4-7) Stop: 07/19/18 09:45 Oxycodone/Acetaminophen (Percocet 5/325 Mg Tab) 2 tab PO Q4 PRN PRN Reason: Pain, severe (8-10) Stop: 07/19/18 09:45 Pantoprazole Sodium (Protonix Ec Tab) 40 mg PO DAILY [facility] Last Admin: 07/18/18 08:45 Dose: 40 mg Pioglitazone HCl (Actos) 15 mg PO DAILY [facility] Last Admin: 07/18/18 08:44 Dose: 15 mg Silver Sulfadiazine (Silvadene 1% 20 Gm) 0 ea TOP DAILY [facility] Last Admin: 07/18/18 12:50 Dose: Not Given Zolpidem Tartrate (Ambien) 5 mg PO HS PRN PRN Reason: Sleep Last Admin: 07/17/18 23:01 Dose: 5 mg - Labs Labs: 07/17/18 05:30 07/17/18 05:30 PT 13.9 Seconds (9.8-13.1) H 07/12/18 09:07 INR 1.2 07/12/18 09:07 APTT 43.1 Seconds (25.6-37.1) H 07/12/18 09:07 Assessment and Plan (1) Sepsis Status: Acute (2) Foot ulcer, left Status: Acute (3) Diabetes mellitus with hyperglycemia Status: Acute (4) CAD (coronary artery disease) Status: Acute (5) H/O coronary artery bypass surgery Status: Acute
--- NOTE | 2018-07-18 19:01 | CP.PCM.PN ---
Subjective - Date & Time of Evaluation Date of Evaluation: 07/18/18 Objective - Vital Signs/Intake and Output Vital Signs (last 24 hours): Temp Pulse Resp BP Pulse Ox 97.6 F 97 H 20 129/90 95 07/18/18 16:09 07/18/18 16:09 07/18/18 16:09 07/18/18 16:09 07/18/18 16:09 - Medications Medications: Current Medications Acetaminophen (Tylenol 325mg Tab) 650 mg PO Q4 PRN PRN Reason: Fever >101.0 F Last Admin: 07/12/18 23:52 Dose: 650 mg Amlodipine Besylate (Norvasc) 10 mg PO DAILY [facility] Last Admin: 07/18/18 08:51 Dose: 10 mg Aspirin (Ecotrin) 81 mg PO DAILY [facility] Last Admin: 07/15/18 08:23 Dose: 81 mg Atorvastatin Calcium (Lipitor) 20 mg PO DAILY [facility] Last Admin: 07/18/18 08:47 Dose: 20 mg Dextrose (Dextrose 50% Inj) 0 ml IV STAT PRN; Protocol PRN Reason: Hypoglycemia Protocol Dextrose (Glutose 15) 0 gm PO ONCE PRN; Protocol PRN Reason: Hypoglycemia Protocol Glipizide (Glucotrol Xl) 10 mg PO DAILY [facility] Last Admin: 07/18/18 08:46 Dose: 10 mg Glucagon (Glucagen Diagnostic Kit) 0 mg IM STAT PRN; Protocol PRN Reason: Hypoglycemia Protocol Heparin Sodium (Porcine) (Heparin) 5,000 units SC Q8 [facility]; Protocol Last Admin: 07/15/18 08:24 Dose: 5,000 units Heparin Sodium (Porcine) (Heparin) 5,000 units SC Q8 [facility]; Protocol Last Admin: 07/18/18 16:37 Dose: 5,000 units Sodium Chloride (Sodium Chloride 0.9%) 1,000 mls @ 75 mls/hr IV .[id number] [facility] Last Admin: 07/18/18 06:08 Dose: Not Given Sodium Chloride (Sodium Chloride 0.9%) 1,000 mls @ 100 mls/hr IV .Q10H [facility] Last Admin: 07/18/18 01:45 Dose: Not Given Vancomycin HCl 750 mg/ Sodium (Chloride) 250 mls @ 250 mls/hr IVPB QOD@0900,2100 [facility]; Protocol Last Admin: 07/17/18 20:30 Dose: 250 mls/hr Insulin Detemir (Levemir) 50 units SC HS [facility] Last Admin: 07/17/18 22:57 Dose: 50 u Insulin Human Lispro (Humalog) 10 units SC TIDAC [facility] Last Admin: 07/18/18 16:37 Dose: 10 units Insulin Human Lispro (Humalog) 0 units SC ACHS [facility]; Protocol Last Admin: 07/18/18 16:38 Dose: 6 units Lisinopril (Zestril) 40 mg PO DAILY [facility] Last Admin: 07/18/18 08:44 Dose: 40 mg Multivitamins/Minerals (Therapeutic-M Tab) 1 tab PO DAILY [facility] Last Admin: 07/18/18 08:44 Dose: 1 tab Mupirocin (Bactroban Ointment) 1 applic TOP BID [facility] Last Admin: 07/18/18 16:35 Dose: Not Given Enfcx-4-Szxy Ethyl Esters (Lovaza) 1 gm PO DAILY [facility] Last Admin: 07/18/18 08:45 Dose: 1 gm Oxycodone/Acetaminophen (Percocet 5/325 Mg Tab) 1 tab PO Q4 PRN PRN Reason: Pain, moderate (4-7) Stop: 07/19/18 09:45 Oxycodone/Acetaminophen (Percocet 5/325 Mg Tab) 2 tab PO Q4 PRN PRN Reason: Pain, severe (8-10) Stop: 07/19/18 09:45 Pantoprazole Sodium (Protonix Ec Tab) 40 mg PO DAILY [facility] Last Admin: 07/18/18 08:45 Dose: 40 mg Pioglitazone HCl (Actos) 15 mg PO DAILY [facility] Last Admin: 07/18/18 08:44 Dose: 15 mg Silver Sulfadiazine (Silvadene 1% 20 Gm) 0 ea TOP DAILY [facility] Last Admin: 07/18/18 12:50 Dose: Not Given Zolpidem Tartrate (Ambien) 5 mg PO HS PRN PRN Reason: Sleep Last Admin: 07/17/18 23:01 Dose: 5 mg - Labs Labs: 07/17/18 05:30 07/17/18 05:30 PT 13.9 Seconds (9.8-13.1) H 07/12/18 09:07 INR 1.2 07/12/18 09:07 APTT 43.1 Seconds (25.6-37.1) H 07/12/18 09:07 Assessment and Plan (1) Sepsis Status: Acute (2) Foot ulcer, left Status: Acute (3) Diabetes mellitus with hyperglycemia Status: Acute (4) CAD (coronary artery disease) Status: Acute (5) H/O coronary artery bypass surgery Status: Acute
[2018-07-18] MEDS: Oxycodone/Acetaminophen 5/325 mg Tab PO PRN (21:06)
[2018-07-18] MEDS: Insulin Detemir 100 Units/ml Inj SC SCH (22:14)
[2018-07-19] MEDS: Oxycodone/Acetaminophen 5/325 mg Tab PO PRN ×3 (02:33→18:25)
[2018-07-19 07:10] LABS: BASO # 0.1 K/uL (0.0-0.2); BASO % 0.8 % (0.0-2.0); EOS # 0.5 K/uL (0.0-0.7); EOS % 5.5 % (0.0-4.0); HEMOGLOBIN 10.8 g/dL (12.0-18.0); LYMPH # 1.9 K/uL (1.0-4.3); LYMPH % 20.3 % (20.0-40.0); MEAN CELL VOLUME 92.7 fl (80.0-94.0); MEAN CORPUSCULAR HGB CONC 34.5 g/dL (33.0-37.0); MEAN PLATELET VOLUME 7.4 fl (7.2-11.7); MONO # 0.7 K/uL (0.0-0.8); MONO % 7.3 % (0.0-10.0); NEUT # 6.2 K/uL (1.8-7.0); NEUT % 66.1 % (50.0-75.0); NRBC % 0.2 % (0.0-0.0); RBC 3.37 Mil/uL (4.40-5.90); RED CELL DISTRIBUTION WIDTH 12.5 % (11.5-14.5); WHITE BLOOD COUNT 9.4 K/uL (4.8-10.8)
--- NOTE | 2018-07-19 08:21 | OP ---
PROCEDURE DATE: 07/16/2018 SURGEON: Cooper Deleon DPM PROPERTY ECONOMIST: Dr. Maxwell Mitchell, PGY-1 ANESTHESIOLOGY: Romulo Santoyo MD ANESTHESIA: IV sedation with local. PREOPERATIVE DIAGNOSES: Continue closure of wound after incision and drainage procedure as well as amputation of left fourth digit metatarsal head. POSTOPERATIVE DIAGNOSES: Continue closure of wound after incision and drainage procedure as well as amputation of left fourth digit metatarsal head. PROCEDURE: Secondary wound closure of previous amputation and incision and drainage site. INDICATIONS: The patient is a 48-year-old male with the above diagnoses. The patient signed consent after careful explanation of risks, benefits, complications, and alternatives for surgical procedure. No guarantees were given nor implied. PREPARATION: The patient was brought into the operating room and placed on the operating room table in a supine position. A time-out was performed for identification of the correct patient and procedure. After induction of IV sedation, the patient received a total of 15 mL of 0.5% Marcaine plain and 2% lidocaine plain in a local block fashion to the left forefoot. Once local anesthesia was achieved, the left foot was then prepped and draped in normal sterile manner. No tourniquet was used during the procedure. DESCRIPTION OF PROCEDURE: Attention was directed to the plantar aspect of the left fourth metatarsal head and amputation site where previous surgical incision was made. Sutures were removed using pickup and sterile #15 blade. The previous incision site was inspected and debrided with a curette and then a #15 blade was used along with the pickup to remove fibrotic tissue. The previous sinus appeared to have granular tissue formation involved. Necrotic and devitalized tissue was excisionally debrided until healthy granular bleeding tissue was noted. Next, simpulse lavage was used and the wound was pulsed with 3 L of normal saline and Bacitracin. 1 inch plain packing was placed inside the wound which was then closed with 3-0 Prolene and the dorsal flap at the fourth digit space which remains viable was used to close the fourth digit vacancy. The surgical site was then dressed with Betadine-soaked Adaptic, bolster dressing, and light Pola bandage. POSTOPERATIVE CONDITION: The patient tolerated the anesthesia and procedure well and was escorted to the recovery room with vital signs stable and neurovascular status intact to the left foot. The patient will be seen and followed along while patient remains in the hospital and will follow up with Dr. Deleon as outpatient upon discharge. MAXWELL MITCHELL Cooper Deleon DPM JEANNIE
[2018-07-19] MEDS: GlipiZIDE 10 mg SR Tab PO SCH (09:02)
[2018-07-19] MEDS: Insulin Lispro (humaLOG) 100 Units/ml Inj SC SCH ×7 (09:04→21:13)
[2018-07-19] MEDS: Omega-3-Acid Ethyl Esters 1 GM Cap PO SCH (09:06)
[2018-07-19] MEDS: Pantoprazole 40 mg EC Tab PO SCH (09:07)
[2018-07-19] MEDS: Multivitamin With Minerals Tab PO SCH (09:08)
[2018-07-19] MEDS ORDERED: methylPREDNISolone 40 MG in Sodium Chloride 0.9% 50 ML IV STA (09:44)
--- NOTE | 2018-07-19 09:48 | CP.PCM.PN ---
Subjective - Date & Time of Evaluation Date of Evaluation: 07/19/18 Time of Evaluation: 08:40 - Subjective Subjective: Pt seen and examined this morning. No new complaints at this time Objective - Vital Signs/Intake and Output Vital Signs (last 24 hours): Temp Pulse Resp BP Pulse Ox 98.8 F 93 H 19 141/94 H 96 07/19/18 00:50 07/19/18 09:08 07/19/18 00:50 07/19/18 09:08 07/19/18 00:50 - Medications Medications: Current Medications Acetaminophen (Tylenol 325mg Tab) 650 mg PO Q4 PRN PRN Reason: Fever >101.0 F Last Admin: 07/12/18 23:52 Dose: 650 mg Amlodipine Besylate (Norvasc) 10 mg PO DAILY [facility] Last Admin: 07/19/18 09:06 Dose: 10 mg Aspirin (Ecotrin) 81 mg PO DAILY [facility] Last Admin: 07/15/18 08:23 Dose: 81 mg Atorvastatin Calcium (Lipitor) 20 mg PO DAILY [facility] Last Admin: 07/19/18 09:06 Dose: 20 mg Dextrose (Dextrose 50% Inj) 0 ml IV STAT PRN; Protocol PRN Reason: Hypoglycemia Protocol Dextrose (Glutose 15) 0 gm PO ONCE PRN; Protocol PRN Reason: Hypoglycemia Protocol Glipizide (Glucotrol Xl) 10 mg PO DAILY [facility] Last Admin: 07/19/18 09:02 Dose: 10 mg Glucagon (Glucagen Diagnostic Kit) 0 mg IM STAT PRN; Protocol PRN Reason: Hypoglycemia Protocol Heparin Sodium (Porcine) (Heparin) 5,000 units SC Q8 [facility]; Protocol Last Admin: 07/15/18 08:24 Dose: 5,000 units Heparin Sodium (Porcine) (Heparin) 5,000 units SC Q8 [facility]; Protocol Last Admin: 07/19/18 09:03 Dose: Not Given Vancomycin HCl 750 mg/ Sodium (Chloride) 250 mls @ 250 mls/hr IVPB QOD@0900,2100 [facility]; Protocol Last Admin: 07/19/18 08:55 Dose: 250 mls/hr Methylprednisolone 40 mg/ (Sodium Chloride) 50 mls @ 100 mls/hr IV STAT [facility] Stop: 07/19/18 10:13 Insulin Detemir (Levemir) 50 units SC [facility] Last Admin: 07/18/18 22:14 Dose: 50 u Insulin Human Lispro (Humalog) 10 units SC TIDAC [facility] Last Admin: 07/19/18 09:04 Dose: 10 units Insulin Human Lispro (Humalog) 0 units SC ACHS [facility]; Protocol Last Admin: 07/19/18 09:05 Dose: 8 units Lisinopril (Zestril) 40 mg PO DAILY [facility] Last Admin: 07/19/18 09:08 Dose: 40 mg Multivitamins/Minerals (Therapeutic-M Tab) 1 tab PO DAILY [facility] Last Admin: 07/19/18 09:08 Dose: 1 tab Mupirocin (Bactroban Ointment) 1 applic TOP BID [facility] Last Admin: 07/18/18 16:35 Dose: Not Given Sjgux-6-Yukz Ethyl Esters (Lovaza) 1 gm PO DAILY [facility] Last Admin: 07/19/18 09:06 Dose: 1 gm Pantoprazole Sodium (Protonix Ec Tab) 40 mg PO DAILY [facility] Last Admin: 07/19/18 09:07 Dose: 40 mg Pioglitazone HCl (Actos) 15 mg PO DAILY [facility] Last Admin: 07/19/18 09:02 Dose: 15 mg Silver Sulfadiazine (Silvadene 1% 20 Gm) 0 ea TOP DAILY [facility] Last Admin: 07/18/18 12:50 Dose: Not Given Zolpidem Tartrate (Ambien) 5 mg PO HS PRN PRN Reason: Sleep Last Admin: 07/17/18 23:01 Dose: 5 mg - Labs Labs: 07/19/18 06:40 07/17/18 05:30 PT 13.9 Seconds (9.8-13.1) H 07/12/18 09:07 INR 1.2 07/12/18 09:07 APTT 43.1 Seconds (25.6-37.1) H 07/12/18 09:07 - Constitutional Appears: No Acute Distress - Head Exam Head Exam: ATRAUMATIC, NORMOCEPHALIC - Eye Exam Eye Exam: EOMI - ENT Exam ENT Exam: Mucous Membranes Moist - Neck Exam Neck Exam: Full ROM - Respiratory Exam Respiratory Exam: Clear to Ausculation Bilateral, NORMAL BREATHING PATTERN. absent: Accessory Muscle Use, Respiratory Distress - Cardiovascular Exam Cardiovascular Exam: RRR, +S1, +S2. absent: Diastolic murmur - GI/Abdominal Exam GI & Abdominal Exam: Soft, Normal Bowel Sounds. absent: Tenderness - Extremities Exam Extremities Exam: Full ROM. 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
[2018-07-19] MEDS ORDERED: MethylPREDNISolone 40 mg Vial IVP ONE (10:00)
--- NOTE | 2018-07-19 10:37 | CP.PCM.PN ---
Subjective - Date & Time of Evaluation Date of Evaluation: 07/19/18 Time of Evaluation: 10:37 - Subjective Subjective: ID Note- Patient seen and examined today. s/p picc line placement today. afebrile and states feels better. Objective - Vital Signs/Intake and Output Vital Signs (last 24 hours): Temp Pulse Resp BP Pulse Ox 98.8 F 93 H 19 141/94 H 96 07/19/18 00:50 07/19/18 09:08 07/19/18 00:50 07/19/18 09:08 07/19/18 00:50 - Medications Medications: Current Medications Acetaminophen (Tylenol 325mg Tab) 650 mg PO Q4 PRN PRN Reason: Fever >101.0 F Last Admin: 07/12/18 23:52 Dose: 650 mg Amlodipine Besylate (Norvasc) 10 mg PO DAILY [facility] Last Admin: 07/19/18 09:06 Dose: 10 mg Aspirin (Ecotrin) 81 mg PO DAILY [facility] Last Admin: 07/15/18 08:23 Dose: 81 mg Atorvastatin Calcium (Lipitor) 20 mg PO DAILY [facility] Last Admin: 07/19/18 09:06 Dose: 20 mg Dextrose (Dextrose 50% Inj) 0 ml IV STAT PRN; Protocol PRN Reason: Hypoglycemia Protocol Dextrose (Glutose 15) 0 gm PO ONCE PRN; Protocol PRN Reason: Hypoglycemia Protocol Glipizide (Glucotrol Xl) 10 mg PO DAILY [facility] Last Admin: 07/19/18 09:02 Dose: 10 mg Glucagon (Glucagen Diagnostic Kit) 0 mg IM STAT PRN; Protocol PRN Reason: Hypoglycemia Protocol Heparin Sodium (Porcine) (Heparin) 5,000 units SC Q8 [facility]; Protocol Last Admin: 07/15/18 08:24 Dose: 5,000 units Heparin Sodium (Porcine) (Heparin) 5,000 units SC Q8 [facility]; Protocol Last Admin: 07/19/18 09:03 Dose: Not Given Vancomycin HCl 750 mg/ Sodium (Chloride) 250 mls @ 250 mls/hr IVPB QOD@09 00,2100 [facility]; Protocol Last Admin: 07/19/18 08:55 Dose: 250 mls/hr Insulin Detemir (Levemir) 50 units SC HS [facility] Last Admin: 07/18/18 22:14 Dose: 50 u Insulin Human Lispro (Humalog) 10 units SC TIDAC [facility] Last Admin: 07/19/18 09:04 Dose: 10 units Insulin Human Lispro (Humalog) 0 units SC ACHS [facility]; Protocol Last Admin: 07/19/18 09:05 Dose: 8 units Lisinopril (Zestril) 40 mg PO DAILY [facility] Last Admin: 07/19/18 09:08 Dose: 40 mg Multivitamins/Minerals (Therapeutic-M Tab) 1 tab PO DAILY [facility] Last Admin: 07/19/18 09:08 Dose: 1 tab Mupirocin (Bactroban Ointment) 1 applic TOP BID [facility] Last Admin: 07/18/18 16:35 Dose: Not Given [id number] Ethyl Esters (Lovaza) 1 gm PO DAILY [facility] Last Admin: 07/19/18 09:06 Dose: 1 gm Pantoprazole Sodium (Protonix Ec Tab) 40 mg PO DAILY [facility] Last Admin: 07/19/18 09:07 Dose: 40 mg Pioglitazone HCl (Actos) 15 mg PO DAILY [facility] Last Admin: 07/19/18 09:02 Dose: 15 mg Silver Sulfadiazine (Silvadene 1% 20 Gm) 0 ea TOP DAILY [facility] Last Admin: 07/18/18 12:50 Dose: Not Given Zolpidem Tartrate (Ambien) 5 mg PO HS PRN PRN Reason: Sleep Last Admin: 07/17/18 23:01 Dose: 5 mg - Labs Labs: - Additional Findings Additional findings: - Constitutional Appears: No Acute Distress - Head Exam Head Exam: ATRAUMATIC - Eye Exam Eye Exam: EOMI, PERRL - ENT Exam ENT Exam: Normal Oropharynx - Neck Exam Neck exam: Positive for: Full Rom - Respiratory Exam Respiratory Exam: Clear to Auscultation Bilateral, NORMAL BREATHING PATTERN - Cardiovascular Exam Cardiovascular Exam: RRR, +S1, +S2 - GI/Abdominal Exam GI & Abdominal Exam: Normal Bowel Sounds, Soft Additional comments: NT, ND -EXT- left foot fourth toe amputation site wrapped in gauze , dressing clean - Neurological Exam Neurological exam: Alert, Oriented x 3 Laboratory Results - last 72 hr 07/16/18 07/16/18 07/16/18 09:40 16:03 21:31 WBC RBC Hgb Hct MCV MCH MCHC RDW Plt Count MPV Neut % (Auto) Lymph % (Auto) [place] % (Auto) Eos % (Auto) Baso % (Auto) Neut # (Auto) Lymph # (Auto) [place] # (Auto) Eos # (Auto) Baso # (Auto) Sodium Potassium Chloride Carbon Dioxide Anion Gap BUN Creatinine Est GFR ( Amer) Est GFR (Non-Af Amer) POC Glucose (mg/dL) 266 H 352 H 300 H Random Glucose Calcium 07/17/18 07/17/18 07/17/18 05:30 05:30 05:37 WBC 9.8 RBC 3.36 L Hgb 10.5 L Hct 31.3 L MCV 93.3 MCH 31.3 H MCHC 33.6 RDW 12.6 Plt Count 606 H MPV Neut % (Auto) Lymph % (Auto) [place] % (Auto) Eos % (Auto) Baso % (Auto) Neut # (Auto) Lymph # (Auto) [place] # (Auto) Eos # (Auto) Baso # (Auto) Sodium 134 Potassium 4.5 Chloride 93 L Carbon Dioxide 29 Anion Gap 17 BUN 29 H Creatinine 2.0 H Est GFR ( Amer) 43 Est GFR (Non-Af Amer) 36 POC Glucose (mg/dL) 308 H Random Glucose 278 H Calcium 8.6 07/17/18 07/17/18 07/17/18 11:20 16:31 22:01 WBC RBC Hgb Hct MCV MCH MCHC RDW Plt Count MPV Neut % (Auto) Lymph % (Auto) [place] % (Auto) Eos % (Auto) Baso % (Auto) Neut # (Auto) Lymph # (Auto) [place] # (Auto) Eos # (Auto) Baso # (Auto) Sodium Potassium Chloride Carbon Dioxide Anion Gap BUN Creatinine Est GFR ( Amer) Est GFR (Non-Af Amer) POC Glucose (mg/dL) 347 H 395 H 287 H Random Glucose Calcium 07/18/18 07/18/18 07/18/18 00:17 03:11 06:00 WBC RBC Hgb Hct MCV MCH MCHC RDW Plt Count MPV Neut % (Auto) Lymph % (Auto) [place] % (Auto) Eos % (Auto) Baso % (Auto) Neut # (Auto) Lymph # (Auto) [place] # (Auto) Eos # (Auto) Baso # (Auto) Sodium Potassium Chloride Carbon Dioxide Anion Gap BUN Creatinine Est GFR ( Amer) Est GFR (Non-Af Amer) POC Glucose (mg/dL) 348 H 238 H 243 H Random Glucose Calcium 07/18/18 07/18/18 07/18/18 11:11 15:59 21:28 WBC RBC Hgb Hct MCV MCH MCHC RDW Plt Count MPV Neut % (Auto) Lymph % (Auto) [place] % (Auto) Eos % (Auto) Baso % (Auto) Neut # (Auto) Lymph # (Auto) [place] # (Auto) Eos # (Auto) Baso # (Auto) Sodium Potassium Chloride Carbon Dioxide Anion Gap BUN Creatinine Est GFR ( Amer) Est GFR (Non-Af Amer) POC Glucose (mg/dL) 263 H 302 H 295 H Random Glucose Calcium 07/19/18 07/19/18 07/19/18 05:19 06:40 12:40 WBC 9.4 RBC 3.37 L Hgb 10.8 L Hct 31.2 L MCV 92.7 MCH 32.0 H MCHC 34.5 RDW 12.5 Plt Count 676 H MPV 7.4 Neut % (Auto) 66.1 Lymph % (Auto) 20.3 [place] % (Auto) 7.3 Eos % (Auto) 5.5 H Baso % (Auto) 0.8 Neut # (Auto) 6.2 Lymph # (Auto) 1.9 [place] # (Auto) 0.7 Eos # (Auto) 0.5 Baso # (Auto) 0.1 Sodium Potassium Chloride Carbon Dioxide Anion Gap BUN Creatinine Est GFR ( Amer) Est GFR (Non-Af Amer) POC Glucose (mg/dL) 397 H 312 H Random Glucose Calcium Microbiology 07/12/18 05:00 Abscess - Foot-Left Gram Stain - Final 07/12/18 05:00 Abscess - Foot-Left Wound Culture - Final Beta Hemolytic Strep Group B 07/12/18 05:00 Abscess - Foot-Left Gram Stain - Final 07/12/18 05:00 Abscess - Foot-Left Wound Culture - Final Beta Hemolytic Strep Group B 07/09/18 12:15 Blood-Venous Blood Culture - Final NO GROWTH AFTER 5 DAYS 07/09/18 12:15 Blood-Venous Gram Stain - Final TEST NOT PERFORMED 07/09/18 12:00 Blood-Venous Blood Culture - Final NO GROWTH AFTER 5 DAYS 07/09/18 12:00 Blood-Venous Gram Stain - Final TEST NOT PERFORMED 07/08/18 19:16 Toe Gram Stain - Final 07/08/18 19:16 Toe Wound Culture - Final Beta Hemolytic Strep Group B Staphylococcus Aureus 07/07/18 00:02 Blood-Venous Blood Culture - Final NO GROWTH AFTER 5 DAYS 07/07/18 00:02 Blood-Venous Gram Stain - Final TEST NOT PERFORMED 07/08/18 00:17 Blood-Venous Blood Culture - Final NO GROWTH AFTER 5 DAYS 07/08/18 00:17 Blood-Venous Gram Stain - Final TEST NOT PERFORMED 07/08/18 19:16 Urine,Clean Catch Urine Culture - Final No Growth (<1,000 CFU/ML) Assessment and Plan (1) Cellulitis of left foot Status: Acute (2) Leukocytosis Status: Acute - Assessment and Plan (Free Text) Assessment: 48 year old male with DM II was admitted with left foot fourth digit region with open lesion and surrounding cellulitis. found to have Om of left fourth toe POD #6 incision and drainage with amputation of the 4th digit + 4th metatarsal head and wound closure today by podiatry. afebrile past 5 days. leukocytosis resolved. HIGH ESR wound cx- Strep group B and MSSA OR wound cx- beta hemolytic strep x 2 path report- acute OM MRI report-Possible Om of left fourth metatarsal head. blood cx- neg x 4 elevated LFTs Plan- completed 8 days of IV nafcillin for MSSA in initial wound cx. advise to continue with IV vancomycin but redose to 750 mg BID but to be given every other day for total of 30 doses. check trough once a week and keep between 10-15. needs total of 30 doses ( has completed 7 doses so far). check creatinine once a week as well. also pt. advised if he notices any change in his hearing to notify his PMD . All above d/w patient and he verbalizes full understanding of all above and agrees with above plan of care. All above also d/w [employer] Leeanna Stahl taking care of patient today in detail.
[2018-07-19] MEDS ORDERED: Lidocaine Hydrochloride 5 ML INJ ONE (11:06)
--- NOTE | 2018-07-19 12:26 | PCM.SURG1 ---
Surgeon's Initial Post Op Note - Surgeon's Notes Surgeon: Tequila Medical Records Secretary: None Type of Anesthesia: Local Pre-Operative Diagnosis: Infection Operative Findings: Patent right basilic vein Post-Operative Diagnosis: Infection Operation Performed: Right basilic vein 4F SL 38cm PICC placed with the tip inthe RA Specimen/Specimens Removed: None Estimated Blood Loss: EBL {In ML}: 1 Date of Surgery/Procedure: 07/19/18 Time of Surgery/Procedure: 11:30
--- NOTE | 2018-07-19 14:04 | CP.PCM.PN ---
Subjective - Date & Time of Evaluation Date of Evaluation: 07/19/18 Time of Evaluation: 14:00 - Subjective Subjective: Podiatry progress note for Dr. Deleon, 48 y/o male patient seen and evaluated at bedside POD3 delayed primary cosure of the left foot. Patient 1 week post op original amputation procedure. Patient seen to be resting comfortably and reports mild pain to left foot since the surgery. Patient states he was able to sleep through the night. Denies n/v/sob/cp and has no other acute complaints at this time. Patient recommended to work with physical therapy to get in and out of bed. Objective - Vital Signs/Intake and Output Vital Signs (last 24 hours): Temp Pulse Resp BP Pulse Ox 97.3 F L 88 16 140/92 H 99 07/19/18 11:00 07/19/18 11:00 07/19/18 11:00 07/19/18 11:00 07/19/18 11:00 - Medications Medications: Current Medications Acetaminophen (Tylenol 325mg Tab) 650 mg PO Q4 PRN PRN Reason: Fever >101.0 F Last Admin: 07/12/18 23:52 Dose: 650 mg Amlodipine Besylate (Norvasc) 10 mg PO DAILY [facility] Last Admin: 07/19/18 09:06 Dose: 10 mg Aspirin (Ecotrin) 81 mg PO DAILY [facility] Last Admin: 07/15/18 08:23 Dose: 81 mg Atorvastatin Calcium (Lipitor) 20 mg PO DAILY [facility] Last Admin: 07/19/18 09:06 Dose: 20 mg Dextrose (Dextrose 50% Inj) 0 ml IV STAT PRN; Protocol PRN Reason: Hypoglycemia Protocol Dextrose (Glutose 15) 0 gm PO ONCE PRN; Protocol PRN Reason: Hypoglycemia Protocol Glipizide (Glucotrol Xl) 10 mg PO DAILY [facility] Last Admin: 07/19/18 09:02 Dose: 10 mg Glucagon (Glucagen Diagnostic Kit) 0 mg IM STAT PRN; Protocol PRN Reason: Hypoglycemia Protocol Heparin Sodium (Porcine) (Heparin) 5,000 units SC Q8 [facility]; Protocol Last Admin: 07/15/18 08:24 Dose: 5,000 units Heparin Sodium (Porcine) (Heparin) 5,000 units SC Q8 [facility]; Protocol Last Admin: 07/19/18 09:03 Dose: Not Given Vancomycin HCl 750 mg/ Sodium (Chloride) 250 mls @ 250 mls/hr IVPB QOD@0900,2100 [facility]; Protocol Last Admin: 07/19/18 08:55 Dose: 250 mls/hr Insulin Detemir (Levemir) 50 units SC HS [facility] Last Admin: 07/18/18 22:14 Dose: 50 u Insulin Human Lispro (Humalog) 10 units SC TIDAC [facility] Last Admin: 07/19/18 13:20 Dose: 10 units Insulin Human Lispro (Humalog) 0 units SC ACHS [facility]; Protocol Last Admin: 07/19/18 13:21 Dose: 3 units Lisinopril (Zestril) 40 mg PO DAILY [facility] Last Admin: 07/19/18 09:08 Dose: 40 mg Multivitamins/Minerals (Therapeutic-M Tab) 1 tab PO DAILY [facility] Last Admin: 07/19/18 09:08 Dose: 1 tab Mupirocin (Bactroban Ointment) 1 applic TOP BID [facility] Last Admin: 07/18/18 16:35 Dose: Not Given [id number] Ethyl Esters (Lovaza) 1 gm PO DAILY [facility] Last Admin: 07/19/18 09:06 Dose: 1 gm Pantoprazole Sodium (Protonix Ec Tab) 40 mg PO DAILY [facility] Last Admin: 07/19/18 09:07 Dose: 40 mg Pioglitazone HCl (Actos) 15 mg PO DAILY [facility] Last Admin: 07/19/18 09:02 Dose: 15 mg Silver Sulfadiazine (Silvadene 1% 20 Gm) 0 ea TOP DAILY [facility] Last Admin: 07/18/18 12:50 Dose: Not Given Zolpidem Tartrate (Ambien) 5 mg PO HS PRN PRN Reason: Sleep Last Admin: 07/17/18 23:01 Dose: 5 mg - Labs Labs: 07/19/18 06:40 07/17/18 05:30 PT 13.9 Seconds (9.8-13.1) H 07/12/18 09:07 INR 1.2 07/12/18 09:07 APTT 43.1 Seconds (25.6-37.1) H 07/12/18 09:07 - Constitutional Appears: Well, Non-toxic, No Acute Distress - Head Exam Head Exam: ATRAUMATIC, NORMOCEPHALIC - Extremities Exam Additional comments: Left Lower Extremity Vascular: DP and PT 1/4, CFT < 3 seconds, TG warm to warm, minimal edema to the dorsum of the left foot Ortho: Mild tenderness on palpation to the surgical site, left 4th digit amputation site noted open at this time Neuro: Gross sensation intact, protective sensation diminished Derm: left 4th digit amputation noted with a plantar incision with packing intact at the plantar proximal aspect of the site, sutures intact and incision well coapted, no wound dehiscence noted, no malodor, no signs of infection noted - Neurological Exam Neurological Exam: Alert, Awake, Oriented x3 - Psychiatric Exam Psychiatric exam: Normal Affect, Normal Mood Assessment and Plan - Assessment and Plan (Free Text) Assessment: 48 y/o male patient 3 days s/p left foot primary wound closure Plan: Patient seen and evaluated at bedside Plan discussed with Dr. Deleon Chart, labs and vitals reviewed- WBC 9.4, afebrile at this time L foot x-rays ordered; no evidence of OM, no soft tissue emphysema appreciated C/w IV abx; Nafcillin, vanco ID on board; appreciate recs Wound Cx from [facility] (taken 07/05): B hemolytic strep, Staph Aureus Left Foot MRI: osteomyelitis of left fourth metatarsal head Left Foot X-rays post surgery- amputation of the 4th digit and 4th met head noted OR Pathology and WCx-beta hemolytic group strep b acute osteomyelitis of the fourth met head and digit Site cleansed with saline and dressed with 4X4, ABD, Kerlix, Packing completely removed at this time Continue physical therapy Podiatry will continue to follow patient while in house
[2018-07-19] MEDS ORDERED: Oxycodone/Acetaminophen 5/325 mg Tab PO PRN (18:16)
[2018-07-19 20:33] LABS: CALCIUM 9.4 mg/dL (8.4-10.2)
[2018-07-19] MEDS: Insulin Detemir 100 Units/ml Inj SC SCH (21:15)
[2018-07-20] MEDS: Oxycodone/Acetaminophen 5/325 mg Tab PO PRN ×2 (01:18→17:50)
--- NOTE | 2018-07-20 01:37 | CP.PCM.PN ---
Subjective - Date & Time of Evaluation Date of Evaluation: 07/19/18 Time of Evaluation: 18:50 Objective - Vital Signs/Intake and Output Vital Signs (last 24 hours): Temp Pulse Resp BP Pulse Ox 98.8 F 94 H 18 122/83 95 07/20/18 00:00 07/20/18 00:00 07/20/18 00:00 07/20/18 00:00 07/20/18 00:00 - Medications Medications: Current Medications Acetaminophen (Tylenol 325mg Tab) 650 mg PO Q4 PRN PRN Reason: Fever >101.0 F Last Admin: 07/12/18 23:52 Dose: 650 mg Amlodipine Besylate (Norvasc) 10 mg PO DAILY [facility] Last Admin: 07/19/18 09:06 Dose: 10 mg Aspirin (Ecotrin) 81 mg PO DAILY [facility] Last Admin: 07/15/18 08:23 Dose: 81 mg Atorvastatin Calcium (Lipitor) 20 mg PO DAILY [facility] Last Admin: 07/19/18 09:06 Dose: 20 mg Dextrose (Dextrose 50% Inj) 0 ml IV STAT PRN; Protocol PRN Reason: Hypoglycemia Protocol Dextrose (Glutose 15) 0 gm PO ONCE PRN; Protocol PRN Reason: Hypoglycemia Protocol Glipizide (Glucotrol Xl) 10 mg PO DAILY [facility] Last Admin: 07/19/18 09:02 Dose: 10 mg Glucagon (Glucagen Diagnostic Kit) 0 mg IM STAT PRN; Protocol PRN Reason: Hypoglycemia Protocol Heparin Sodium (Porcine) (Heparin) 5,000 units SC Q8 [facility]; Protocol Last Admin: 07/15/18 08:24 Dose: 5,000 units Heparin Sodium (Porcine) (Heparin) 5,000 units SC Q8 [facility]; Protocol Last Admin: 07/20/18 01:18 Dose: 5,000 units Vancomycin HCl 1 gm/ Sodium (Chloride) 250 mls @ 166.667 mls/hr IVPB QOD@0900,2100 [facility]; Protocol Insulin Detemir (Levemir) 50 units SC HS [facility] Last Admin: 07/19/18 21:15 Dose: 50 u Insulin Human Lispro (Humalog) 10 units SC TIDAC [facility] Last Admin: 07/19/18 18:02 Dose: 10 units Insulin Human Lispro (Humalog) 0 units SC ACHS [facility]; Protocol Last Admin: 07/19/18 21:13 Dose: 4 units Lisinopril (Zestril) 40 mg PO DAILY [facility] Last Admin: 07/19/18 09:08 Dose: 40 mg Multivitamins/Minerals (Therapeutic-M Tab) 1 tab PO DAILY [facility] Last Admin: 07/19/18 09:08 Dose: 1 tab [id number] Ethyl Esters (Lovaza) 1 gm PO DAILY [facility] Last Admin: 07/19/18 09:06 Dose: 1 gm Oxycodone/Acetaminophen (Percocet 5/325 Mg Tab) 2 tab PO Q4 PRN PRN Reason: Pain, severe (8-10) Stop: 07/22/18 18:17 Last Admin: 07/20/18 01:18 Dose: 2 tab Oxycodone/Acetaminophen (Percocet 5/325 Mg Tab) 1 tab PO Q4 PRN PRN Reason: Pain, moderate (4-7) Stop: 07/22/18 18:17 Pantoprazole Sodium (Protonix Ec Tab) 40 mg PO DAILY [facility] Last Admin: 07/19/18 09:07 Dose: 40 mg Pioglitazone HCl (Actos) 15 mg PO DAILY [facility] Last Admin: 07/19/18 09:02 Dose: 15 mg Zolpidem Tartrate (Ambien) 5 mg PO HS PRN PRN Reason: Sleep Last Admin: 07/19/18 23:01 Dose: 5 mg - Labs Labs: 07/19/18 06:40 07/19/18 20:12 PT 13.9 Seconds (9.8-13.1) H 07/12/18 09:07 INR 1.2 07/12/18 09:07 APTT 43.1 Seconds (25.6-37.1) H 07/12/18 09:07 Assessment and Plan (1) Sepsis Status: Acute (2) Foot ulcer, left Status: Acute (3) Diabetes mellitus with hyperglycemia Status: Acute (4) CAD (coronary artery disease) Status: Acute (5) H/O coronary artery bypass surgery Status: Acute
[2018-07-20] MEDS: GlipiZIDE 10 mg SR Tab PO SCH (08:56)
[2018-07-20] MEDS: Insulin Lispro (humaLOG) 100 Units/ml Inj SC SCH ×6 (08:58→16:46)
[2018-07-20] MEDS: Omega-3-Acid Ethyl Esters 1 GM Cap PO SCH (08:59)
[2018-07-20] MEDS: Pantoprazole 40 mg EC Tab PO SCH (09:00)
[2018-07-20] MEDS: Multivitamin With Minerals Tab PO SCH (09:00)
[2018-07-20 10:46] LABS: ALB/GLOB RATIO 0.8 (1.0-2.1); ALBUMIN 3.5 g/dL (3.5-5.0); CALCIUM 9.6 mg/dL (8.4-10.2)
--- NOTE | 2018-07-20 11:31 | CARD ---
APPROVED REPORT Date of service: 07/07/2018 EKG Measurement Heart [id number] <Conclusion> Sinus tachycardia Otherwise normal ECG
[2018-07-20 16:03] VITALS: BP 132/88; PULSE 99; RESP 18; TEMP 98.4; O2SAT 97
[2018-07-20] MEDS ORDERED: Insulin Detemir 100 Units/ml Inj SC SCH (22:00)
--- NOTE | 2018-07-22 02:30 | CP.PCM.DIS ---
Provider - Provider Date of Admission: 07/08/18 00:38 Attending physician: Ashish Funk MD Consults: 07/07/18 23:54 Podiatry Consult Stat Comment: Consulting Provider: Cooper Deleon Consulting Physician: Cooper Deleon Reason for Consult: foot wound 07/08/18 07:00 Infectious Disease Consult Routine Comment: Consulting Provider: Val Cabello Consulting Physician: Val Cabello Reason for Consult: left foot 4th digit cellulitis, wound infection 07/12/18 08:16 Cardiology Consult Routine Comment: Consulting Provider: Fredo Gonzalez Consulting Physician: Fredo Gonzalez Reason for Consult: cardiac clearance Time Spent in preparation of Discharge (in minutes): 25 Diagnosis - Discharge Diagnosis (1) Sepsis Status: Acute Priority: High (2) Foot ulcer, left Status: Acute Priority: High (3) Diabetes mellitus with hyperglycemia Status: Acute Priority: Medium (4) CAD (coronary artery disease) Status: Acute Priority: Medium (5) H/O coronary artery bypass surgery Status: Acute Priority: Low Hospital Course - Lab Results Lab Results: Micro Results 07/12/18 05:00 Abscess - Foot-Left Gram Stain - Final 07/12/18 05:00 Abscess - Foot-Left Wound Culture - Final Beta Hemolytic Strep Group B 07/12/18 05:00 Abscess - Foot-Left Gram Stain - Final 07/12/18 05:00 Abscess - Foot-Left Wound Culture - Final Beta Hemolytic Strep Group B 07/09/18 12:15 Blood-Venous Blood Culture - Final NO GROWTH AFTER 5 DAYS 07/09/18 12:15 Blood-Venous Gram Stain - Final TEST NOT PERFORMED 07/09/18 12:00 Blood-Venous Blood Culture - Final NO GROWTH AFTER 5 DAYS 07/09/18 12:00 Blood-Venous Gram Stain - Final TEST NOT PERFORMED 07/08/18 19:16 Toe Gram Stain - Final 07/08/18 19:16 Toe Wound Culture - Final Beta Hemolytic Strep Group B Staphylococcus Aureus 07/07/18 00:02 Blood-Venous Blood Culture - Final NO GROWTH AFTER 5 DAYS 07/07/18 00:02 Blood-Venous Gram Stain - Final TEST NOT PERFORMED 07/08/18 00:17 Blood-Venous Blood Culture - Final NO GROWTH AFTER 5 DAYS 07/08/18 00:17 Blood-Venous Gram Stain - Final TEST NOT PERFORMED 07/08/18 19:16 Urine,Clean Catch Urine Culture - Final No Growth (<1,000 CFU/ML) Most Recent Lab Values WBC 9.4 K/uL (4.8-10.8) 07/19/18 06:40 RBC 3.37 Mil/uL (4.40-5.90) L 07/19/18 06:40 Hgb 10.8 g/dL (12.0-18.0) L 07/19/18 06:40 Hct 31.2 % (35.0-51.0) L 07/19/18 06:40 MCV 92.7 fl (80.0-94.0) 07/19/18 06:40 MCH 32.0 pg (27.0-31.0) H 07/19/18 06:40 MCHC 34.5 g/dL (33.0-37.0) 07/19/18 06:40 RDW 12.5 % (11.5-14.5) 07/19/18 06:40 Plt Count 676 K/uL (130-400) H 07/19/18 06:40 MPV 7.4 fl (7.2-11.7) 07/19/18 06:40 Neut % (Auto) 66.1 % (50.0-75.0) 07/19/18 06:40 Lymph % (Auto) 20.3 % (20.0-40.0) 07/19/18 06:40 Evans % (Auto) 7.3 % (0.0-10.0) 07/19/18 06:40 Eos % (Auto) 5.5 % (0.0-4.0) H 07/19/18 06:40 Baso % (Auto) 0.8 % (0.0-2.0) 07/19/18 06:40 Neut # (Auto) 6.2 K/uL (1.8-7.0) 07/19/18 06:40 Lymph # (Auto) 1.9 K/uL (1.0-4.3) 07/19/18 06:40 Evans # (Auto) 0.7 K/uL (0.0-0.8) 07/19/18 06:40 Eos # (Auto) 0.5 K/uL (0.0-0.7) 07/19/18 06:40 Baso # (Auto) 0.1 K/uL (0.0-0.2) 07/19/18 06:40 Neutrophils % (Manual) 84 % (42-75) H 07/12/18 09:07 Band Neutrophils % 1 % (0-2) 07/12/18 09:07 Lymphocytes % (Manual) 7 % (20-50) L 07/12/18 09:07 Monocytes % (Manual) 5 % (0-10) 07/12/18 09:07 Eosinophils % (Manual) 3 % (0-7) 07/12/18 09:07 Basophils % (Manual) 1 % (0-2) 07/08/18 00:02 Toxic Granulation Present 07/12/18 09:07 Platelet Estimate Increased (NORMAL) H 07/12/18 09:07 Plt Clumps, EDTA Present 07/12/18 09:07 Hypochromasia (manual) Slight 07/12/18 09:07 Anisocytosis (manual) Slight 07/08/18 00:02 Spherocytes Slight 07/08/18 00:02 ESR 91 mm/hr (0-15) H 07/08/18 16:32 PT 13.9 Seconds (9.8-13.1) H 07/12/18 09:07 INR 1.2 07/12/18 09:07 APTT 43.1 Seconds (25.6-37.1) H 07/12/18 09:07 Sodium 136 mmol/l (132-148) 07/20/18 10:18 Potassium 4.2 MMOL/L (3.6-5.0) 07/20/18 10:18 Chloride 96 mmol/L (98-107) L 07/20/18 10:18 Carbon Dioxide 28 mmol/L (22-30) 07/20/18 10:18 Anion Gap 16 (10-20) 07/20/18 10:18 BUN 34 mg/dl (9-20) H 07/20/18 10:18 Creatinine 1.9 mg/dl (0.8-1.5) H 07/20/18 10:18 Est GFR ( Amer) 46 07/20/18 10:18 Est GFR (Non-Af Amer) 38 07/20/18 10:18 POC Glucose (mg/dL) 239 mg/dL (65-110) H 07/21/18 05:31 Random Glucose 257 mg/dL (75-110) H 07/20/18 10:18 Hemoglobin A1c 10.0 % (4.2-6.5) H 07/08/18 10:00 Lactic Acid 1.8 mmol/L (0.7-2.1) 07/08/18 00:02 Calcium 9.6 mg/dL (8.4-10.2) 07/20/18 10:18 Phosphorus 4.0 mg/dl (2.5-4.5) 07/20/18 10:18 Magnesium 1.7 MG/DL (1.6-2.3) 07/20/18 10:18 Total Bilirubin 0.4 mg/dl (0.2-1.3) 07/20/18 10:18 AST 81 U/L (17-59) H 07/20/18 10:18 ALT 100 U/L (21-72) H 07/20/18 10:18 Alkaline Phosphatase 175 U/L (38-126) H 07/20/18 10:18 Total Protein 7.9 G/DL (6.3-8.2) 07/20/18 10:18 Albumin 3.5 g/dL (3.5-5.0) 07/20/18 10:18 Globulin 4.3 gm/dL (2.2-3.9) H 07/20/18 10:18 Albumin/Globulin Ratio 0.8 (1.0-2.1) L 07/20/18 10:18 Vitamin B12 599 pg/mL (239-931) 07/08/18 10:00 TSH 3rd Generation 1.37 mIU/ML (0.46-4.68) 07/08/18 10:00 Urine Color Yellow (YELLOW) 07/08/18 19:16 Urine Clarity Slighty-cloudy (Clear) 07/08/18 19:16 Urine pH 5.0 (5.0-8.0) 07/08/18 19:16 Ur Specific [place] 1.023 (1.003-1.030) 07/08/18 19:16 Urine Protein 100 mg/dL (NEGATIVE) 07/08/18 19:16 Urine Glucose (UA) Neg mg/dL (NEGATIVE) 07/08/18 19:16 Urine Ketones Negative mg/dL (NEGATIVE) 07/08/18 19:16 Urine Blood Negative (NEGATIVE) 07/08/18 19:16 Urine Nitrate Negative (NEGATIVE) 07/08/18 19:16 Urine Bilirubin Negative (NEGATIVE) 07/08/18 19:16 Urine Urobilinogen 1.0 mg/dL (0.2-1.0) 07/08/18 19:16 Ur Leukocyte Esterase Neg Wang/uL (Negative) 07/08/18 19:16 Urine RBC (Auto) 2 /hpf (0-3) 07/08/18 19:16 Urine Microscopic WBC 2 /hpf (0-5) 07/08/18 19:16 Vancomycin Trough 7.7 ug/mL (5.0-10.0) 07/19/18 20:12 Blood Type O POSITIVE 07/12/18 10:00 Antibody Screen Negative 07/12/18 10:00 BBK History Checked Patient has bt 07/12/18 10:00 Discharge Exam - Head Exam Head Exam: ATRAUMATIC, NORMOCEPHALIC Discharge Plan - Follow Up Plan Condition: FAIR Disposition: TRANSF TO SNF Instructions: How to Wash Your Hands Properly, Diabetic Foot Ulcer (DC), Cellulitis (Skin Infection), Adult (DC), Wound Infection Additional Instructions: KRISTEN MINOR, thank you for letting us take care of you today. Your provider was Marcos Sanchez MD and you were treated for LT FOOT PAIN. The emergency medical care you received today was directed at your acute symptoms. If you were prescribed any medication, please fill it and take as directed. It may take several days for your symptoms to resolve. Return to the Emergency Department if your symptoms worsen, do not improve, or if you have any other problems. Please contact your doctor or call one of the physicians/clinics you have been referred to that are listed on the Patient Visit Information form that is included in your discharge packet. Bring any paperwork you were given at discharge with you along with any medications you are taking to your follow up visit. Our treatment cannot replace ongoing medical care by a primary care provider outside of the emergency department. Thank you for allowing the [facility] hospital team to be part of your care today. If you had an X-Ray or CT scan: A Radiologist will review the ED reading if any change in treatment is needed we will contact you. If you had a blood, urine, or wound culture: It will take several days for the results, if any change in treatment is needed we will contact you. If you had an STI test: It will take 48 hours for the results. Please call after 1 week if you have not heard back. Referrals: [facility] [Outside] Val Cabello MD [Staff Provider] - Cooper Deleon MD [Staff Provider] -
--- NOTE | 2018-07-22 14:04 | VASCULAR ---
Procedure: Ultrasound and fluoroscopically placed Right upper extremity PICC. Clinical indication: Long-term IV antibiotics. Technique: The relative risks and indications of the procedure were explained to the patient and written informed consent obtained. The patient was placed supine on the angiographic table and the right arm prepped and draped in the usual sterile fashion. A tourniquet was applied to the right axilla. 1% lidocaine was used to anesthetize the skin and soft tissues at the puncture site above the elbow. The right basilic vein was punctured under direct ultrasound guidance with a micropuncture set. A permanent image was stored. A 0.018 guidewire was advanced centrally and used to measure the length to the SVC/RA junction. A 4 [place] single-lumen PICC, size 38 cm, was advanced to the SVC/RA junction under fluoroscopic guidance. The catheter was flushed and secured. The patient tolerated the procedure well. Postprocedure chest image was obtained to ensure location of the catheter tip at the SVC right atrial junction. Impression: Ultrasound and fluoroscopically placed right upper extremity PICC. A 4 [place] single-lumen PICC, size 38 cm was advanced to the SVC/RA junction. PICC ready for use.
--- NOTE | 2018-08-03 12:31 | CP.PCM.PCO ---
Physician Communication Note - Physician Communication Note Physician Communication Note: Extent of excisional debridement was to subcutaneous tissue
== END 2018-07-20 19:25 | DRG 854 ==
LOC: H.ER 22:39 → H.ERHOLD 07-08 00:38 → H.MEDSURG1 07-08 03:15
PROVIDERS: ADMIT Internal Medicine; ATTEND Internal Medicine
PROC: 0Y6W0Z0 Detachment at Left 4th Toe, Complete, Open Approach (ICD-10-PCS; 2018-07-12)
PROC: 0QBP0ZX Excision of Left Metatarsal, Open Approach, Diagnostic (ICD-10-PCS; 2018-07-12)
PROC: 0Y9N0ZZ Drainage of Left Foot, Open Approach (ICD-10-PCS; 2018-07-12)
PROC: 0YQ Anatomical Regions, Lower Extremities, Repair (ICD-10-PCS; 2018-07-16)
PROC: 0HBNXZZ Excision of Left Foot Skin, External Approach (ICD-10-PCS; 2018-07-16)
PROC: 0JBR0ZZ Excision of Left Foot Subcutaneous Tissue and Fascia, Open Approach (ICD-10-PCS; 2018-07-16)
PROC: 05HY33Z Insertion of Infusion Device into Upper Vein, Percutaneous Approach (ICD-10-PCS; principal; 2018-07-19)
DX: A41.9 Sepsis, unspecified organism (principal); L03.116 Cellulitis of left lower limb; M86.9 Osteomyelitis, unspecified; L02.612 Cutaneous abscess of left foot; E11.52 Type 2 diabetes mellitus with diabetic peripheral angiopathy with gangrene; I96 Gangrene, not elsewhere classified; E11.621 Type 2 diabetes mellitus with foot ulcer; I10 Essential (primary) hypertension; E78.00 Pure hypercholesterolemia, unspecified; E11.65 Type 2 diabetes mellitus with hyperglycemia; I25.10 Atherosclerotic heart disease of native coronary artery without angina pectoris; L97.529 Non-pressure chronic ulcer of other part of left foot with unspecified severity; Z86.73 Personal history of transient ischemic attack (TIA), and cerebral infarction without residual deficits; Z95.1 Presence of aortocoronary bypass graft; Z98.2 Presence of cerebrospinal fluid drainage device; E78.5 Hyperlipidemia, unspecified; S91.312A Laceration without foreign body, left foot, initial encounter; N28.9 Disorder of kidney and ureter, unspecified; M77.32 Calcaneal spur, left foot; B95.1 Streptococcus, group B, as the cause of diseases classified elsewhere; B95.61 Methicillin susceptible Staphylococcus aureus infection as the cause of diseases classified elsewhere; Y93.89 Activity, other specified; E11.69 Type 2 diabetes mellitus with other specified complication